=== PATIENT | male | born 1950 | race Two or more races ===

== ENCOUNTER 2024-10-15 03:01 | Emergency (ER) | payer OTHER ==
[~2024-10-15] VITALS: Ht 165.1 cm; Wt 63.5 kg
[2024-10-15] MEDS: SODIUM CHLORIDE 0.9% 1,000 ML IV ONE (03:15)
--- NOTE | 2024-10-15 03:40 | ECG ---
[facility] Test Date: 2024-10-15 Test Time: 03:19:38 Pat Name: CHALO STARK Department: Room: Gender: M Mender [employer]: RONNIE : 1950 Requested By: EMERGENCY EMERGENCY Order Number: [id number] Reading MD: Measurements Intervals [place] Rate: 99 P: 47 NM: 167 QRS: 5 QRSD: 96 T: -2 QT: 340 QTc: 437 Interpretive Statements Sinus rhythm Inferior infarct, old Consider anterior infarct Lateral leads are also involved Baseline wander in lead(s) V5 Please click the below link to view image of tracing.
[2024-10-15 03:41] LABS: Hematocrit 40.9 % (41.0-53.0); Hemoglobin 13.9 g/dL (13.5-17.5); Mean Corpuscular Hemoglobin 28.8 pg (28.0-32.0); Mean Corpuscular Volume 84.6 fL (80.0-100.0); Nucleated Red Blood Cells % 0.0 %
[2024-10-15 04:24] LABS: Alanine Aminotransferase 20 U/L (7-40); Albumin 4.4 g/dL (3.2-4.8); Alkaline Phosphatase 87 U/L (46-116); Anion Gap 9 (5-15); BUN/Creatinine Ratio 27.5 (10.0-20.0); Calcium 9.9 mg/dL (8.7-10.4); Carbon Dioxide 26 mmol/L (20-31); Magnesium 2.0 mg/dL (1.6-2.6); Potassium 4.2 mmol/L (3.5-5.1); Total Protein 8.2 g/dL (5.7-8.2)
[2024-10-15 04:25] LABS: Bilirubin, Total 0.6 mg/dL (0.2-1.0)
--- NOTE | 2024-10-15 04:36 | ED.PDOC ---
Back pain HPI HPI Comments 74-year-old male is brought in by ambulance for chief complaint of low back pain for the last five weeks, at least States on being bed-bound for the past five weeks secondary to pain. Patient reports that her pain is worsening over the past five days after being seen by chiropractor five days ago. Denies any recent fall or injuries. Denies any further acute symptoms. Past medical history: Esophageal disease, hypertension, diabetes, aspirin use Past surgical history: denies Vitals: Temperature of 98.6 F, pulse rate of 102, respiratory rate of 16, blood pressure 136/76, and pulse ox 95% on room air HPI: Poor Historian. REVIEW OF SYSTEMS: CONSTITUTIONAL: Denies acute: fever, diaphoresis, chills, HEAD: Denies acute: headache, photophobia Eyes: Denies acute: Double vision, vision loss, eye pain, eye discharge. EARS: Denies acute: tinnitus, hearing loss, ear discharge, ear pain, THROAT: Denies acute: sore throat, swelling, difficulty swallowing , pain with swallowing, change in voice. NECK: Denies acute: neck pain, neck swelling, stiff neck. HEART: Denies acute : chest pain, palpitations, LUNGS: Denies acute: SOB, wheezing, cough, hemoptysis ABDOMEN: Denies acute: abdominal pain, Nausea, Vomiting, diarrhea, melena , hematemesis, hematochezia SKIN: Denies acute: rash, redness, lesions, itchiness. EXTREMITIES: Denies acute: calf pain, numbness, tingling, weakness, denies pain in extremity. Neuro: Denies acute: focal neurological deficit, motor or sensory focal neurological deficit, tremors, seizure like activity, confusion, dizziness, change in mental status, loss of bowel or bladder function, cauda equina like symptoms. : Denies acute: dysuria, hematuria, flank pain, increase in urinary frequency. PSYCH: Denies acute: hallucination, suicidal ideation, homicidal ideation. PHYSICAL EXAM: General: -----[id number]---acute distress, awake and alert. Head: normocephalic, atraumatic. Neck: supple, trachea is midline, no swelling. Throat: Normal phonation. Eyes:, no erythema, no purulent discharge, no proptosis, no icterus. Heart: regular rate, regular rhythm, no significant murmur appreciated. Lungs: no apparent respiratory distress, Able to speak in full sentences. No wheezing, no rhonchi, no crackles. No stridors Clear to auscultation bilaterally. Abdomen: non tender to palpation, non distended, soft, no guarding, no rebound, + bowel sounds. Neuro: Awake, Alert, oriented to name, self, situation, follows commands GCS=15. Speech is normal. Skin: no petechia, no purpura, no cyanosis, non-pale, not jaundice. Lower extremities: --no - Pitting edema no deformity, no focal swelling, no calf TTP. Makes eye contact. moves all four extremities. Face: no apparent facial droop. Palpation of the area of pain. Patient points to his lumbosacral region centrally and bilaterally. No apparent swelling or palpable masses or step-off or deformity. ED COURSE: DISCLAIMER: This medical document was created using an electronic medical record system with voice recognition software and computerized dictation system. Although this document has been carefully reviewed, there might still be some phonetic and typographical errors. Occasional wrong-word or "sound-alike" substitutions may have occurred due to the inherent limitations of voice recognition software. These areas are purely typographical due to imperfections of the software programs and do not reflect any compromise in the patient's medical care. Please read the chart carefully and recognize, using context, where these substitutions have occurred. Chief Complaint: Back Pain Time Seen by MD: 04:30 Reviewed Notes: Nurses Notes, Medications, Allergies Allergies: Coded Allergies: NO KNOWN ALLERGIES (Unverified , 10/15/24) Information Source: Patient Mode of Arrival: EMS Was a procedure done? Was a procedure done?: No EKG EKG : Pulse Rate (adult): 99 [place]: Normal Cardiac Rhythm: NSR Block: None Hypertrophy: None ST: Normal Back Pain Differential Dx Differential Diagnosis: Other (DDX included but not limited to Cauda Equina syndrome, lumbar radiculopathy, arthritis, disk herniation, sciatica, muscle strain, epidural abscess, transverse myelitis. Cord compression, spinal foraminal stenosis, spinal fractures, spondylosis, central canal stenosis, trauma, muscle sprain/strain, aneurysm/dissection, kidney stones, shingles, arthritis, [place], neoplasm., retroperitoneal hematoma) X-Ray, Labs, Meds, VS Vital Signs Date Time Temp Pulse Resp B/P (MAP) Pulse Ox O2 Delivery O2 Flow Rate FiO2 10/15/24 10:16 98.4 80 20 125/60 (81) 95 98.4 10/15/24 09:22 98.1 75 22 120/62 (81) 95 98.1 10/15/24 07:52 79 18 98 Room Air* 0 21 10/15/24 07:52 97.1 79 18 134/64 (87) 98 97.1 10/15/24 04:36 99 10/15/24 03:40 98.6 102 16 136/76 95 98.6 10/15/24 03:19 99 Lab Test 10/15/24 07:50 10/15/24 06:56 10/15/24 03:17 Range/Units POC Glucose 310 H 70-106 mg/dl Urine Color Light-yellow Yellow Urine Clarity Clear Clear Urine pH 5.5 5.0-9.0 Urine Specific [place] 1.023 1.001-1.035 Urine Protein 1+ H Negative Urine Ketones Negative Negative Urine Blood Trace H Negative /uL Urine Nitrite Negative Negative Urine Bilirubin Negative Negative Urine Urobilinogen Normal Negative mg/dL Urine Leukocyte Esterase Negative Negative /uL Urine RBC None seen 0 - 3 /hpf Urine Microscopic WBC < 1 0-3 /HPF Urine Squamous Epithelial Cells None seen <5 /hpf Urine Bacteria None seen None Seen /hpf Urine Glucose 4+ H Normal mg/dL White Blood Count 11.9 H 4.4-10.8 10^3/uL Red Blood Count 4.83 4.5-5.90 10^6/uL Hemoglobin 13.9 13.5-17.5 g/dL Hematocrit 40.9 L 41.0-53.0 % Mean Corpuscular Volume 84.6 80.0-100.0 fL Mean Corpuscular Hemoglobin 28.8 28.0-32.0 pg Mean Corpuscular Hemoglobin Concent 34.1 32.0-36.0 g/dL Red Cell Distribution Width 13.6 11.8-14.3 % Platelet Count 390 140-450 10^3/uL Mean Platelet Volume 7.9 6.9-10.8 fL Neutrophils (%) (Auto) 79.5 37.0-80.0 % Lymphocytes (%) (Auto) 9.6 L 10.0-50.0 % Monocytes (%) (Auto) 10.1 0.0-12.0 % Eosinophils (%) (Auto) 0.3 0.0-7.0 % Basophils (%) (Auto) 0.5 0.0-2.0 % Neutrophils # (Auto) 9.4 H 1.6-8.6 10 ^3/uL Lymphocytes # (Auto) 1.1 0.4-5.4 10 ^3/uL Monocytes # (Auto) 1.2 0-1.3 10 ^3/uL Eosinophils # (Auto) 0 0-0.8 10 ^3/uL Basophils # (Auto) 0.1 0-0.2 10 ^3/uL Nucleated Red Blood Cells 0.0 % Sodium Level 127 L 136-145 mmol/L Potassium Level 4.2 3.5-5.1 mmol/L Chloride Level 92 L 98-107 mmol/L Carbon Dioxide Level 26 20-31 mmol/L Anion Gap 9 5-15 Blood Urea Nitrogen 38 H 9-23 mg/dL Creatinine 1.38 H 0.700-1.30 mg/dL Glomerular Filtration Rate Calc 54 >90 mL/min BUN/Creatinine Ratio 27.5 H 10.0-20.0 Serum Glucose 438 *H 74-106 mg/dL Lactic Acid Level 1.3 0.4-2.0 mmol/L Calcium Level 9.9 8.7-10.4 mg/dL Magnesium Level 2.0 1.6-2.6 mg/dL Total Bilirubin 0.6 0.2-1.0 mg/dL Aspartate Amino Transferase (AST) 18 13-40 U/L Alanine Aminotransferase (ALT) 20 7-40 U/L Alkaline Phosphatase 87 46-116 U/L Troponin I High Sensitivity 13 </=54 ng/L Total Protein 8.2 5.7-8.2 g/dL Albumin 4.4 3.2-4.8 g/dL Beta-Hydroxybutyric Acid 0.184 < 0.4 mmol/L [address] [address] Ph: [phone] DIAGNOSTIC IMAGING Diagnostic Imaging Report : [id number] Signed PATIENT: CHALO DIXON ACCT: [id number] UNIT: [id number] : 1950 LOC: ER ROOM / BED: / AGE / SEX: 74 / M ADM STATUS: REG ER SERVICE [id number] ORDERING PHYSICIAN: RONEY SALMERON DO PROCEDURE(s): ABPL - CT AB PEL WO CON-NO ORAL OR IV REASON: lumbar pain ORDER NUMBER(s): [id number], ACCESSION NUMBER(s): [id number] Exam: CT CT AB PEL WO CON-NO ORAL OR IV History: lumbar pain Comparison Study: None Technique: Multidetector spiral CT of the abdomen and pelvis was performed from lung bases to pubic symphysis. Imaging was performed without intravenous contrast. Coronal and sagittal multiplanar reformats were obtained from the axial data set by the technologist. Radiation Dose : 1. Abdomen/Pelvis: CTDIvol 5.85 mGy, DLP 302.6 mGy*cm. Findings: Evaluation of vasculature and solid organs is limited due to lack of intravenous contrast use. Lung Bases: Lung bases are clear. The heart is normal in size. Coronary artery calcifications noted. No pericardial effusion. Liver: The liver is normal in size. No focal lesions. Gallbladder and Biliary Tree: The gallbladder is unremarkable. No intrahepatic or extrahepatic biliary ductal dilatation. Spleen: Unremarkable Pancreas: The pancreas is grossly unremarkable. Adrenal Glands: Unremarkable Kidneys: Kidneys are unremarkable without calculi or hydronephrosis. GI tract: There is a hiatal hernia. There is no small bowel wall thickening or dilatation. Colonic diverticulosis without acute diverticulitis. Normal appendix. Peritoneum/mesentery/retroperitoneum. No evidence of free intraperitoneal air. No ascites. No evidence of suspicious lymphadenopathy. Abdominal Wall: Unremarkable. Vasculature: The visualized abdominal aorta is normal in size and caliber. Evaluation of abdominal and pelvic vessels is limited due to lack of intravenous contrast. Urinary Bladder: Grossly unremarkable for degree of distention. Pelvic Organs: Unremarkable Musculoskeletal: No aggressive focal bony lesions, acute fractures or dislocation. There is bilateral neural foraminal stenosis at L5-S1. Soft tissues: Bilateral fat containing inguinal hernias. IMPRESSION: 1. No acute abdominal or pelvic findings. 2. Hiatal hernia. 3. Colonic diverticulosis without acute diverticulitis. 4. Other incidental findings as above. ATED BY: ALFREDO BEY MD DICTATED DATE/TIME: 10/15/24521 SIGNED BY: ALFREDO BEY MD SIGNED DATE/TIME: 10/15/24521 CC: Time of 1ST Reevaluation: 05:00 Reevaluation 1ST: Unchanged Time of 2ND Reevaluation: 06:04 (THE CASE WAS DISCUSSED WITH THE [facility] ADMITTING TEAM (HPI, PHYSICAL EXAM, LABS AND DIAGNOSTIC TESTS THAT WERE AVAIL ABLE AT THE TIME OF DISPOSITION, ED COURSE, TREATMENT PLAN) ON THE PHONE. THEY AGREED TO TRANSFER THE PATIENT TO THEIR SERVICE BY [facility] FOR FURTHER EVALUATION AND TREATMENT. DRNabila ---RONALD. AUTHORIZATION NUMBER IS--[id number]) Reevaluation 2ND: Unchanged Patient Education/Counseling: Diagnosis, Treatment Family Education/Counseling: No Family Present Comments PATIENT WILL BE TRANSFERRED TO [facility] FOR FURTHER EVALUATION AND TREATMENT OF HIS PRESENTATION. MDM: patient presented with the above HPI.--low back pain----workup was initiated. patient was found with the above mentioned diagnosis. the following medications were ordered: please refer to order lists of meds and tests obtained by myself Dr. Salmeron. Patient ED course and VS have been stabilized. Patient has been reassessed in the ED and remained in a stable condition. Pertinent incidental findings were discussed with the patient and/or family. Patient/family voices understanding and is agreeable with plan. Patient has been observed in the ED adequate length of time to insure improvement/stability. Escalation of care considered: Consideration of escalation to observation or admission Patient we will be transferred per insurance requirement to [place] for further evaluation and treatment of their presentation. And for pain control. . All the reports of any imaging studies that were ordered by myself were reviewed by myself. SEPSIS Sepsis Screen Date sepsis recognized/suspect: Oct 15, 2024 Time Sepsis recognized/suspect: 034 Recent Procedure: No On Antibiotic Therapy: No Respiratory Rate >20: No Heart Rate >90: No Temp<36 C (96.8 F) or >38.3 C: No SBP <90 or MAP <65 mmHG: No New Acute Mental Status Change: No Is the patient on CPAP, BIPAP,: No Physician Orders Apartment Assistant Manager (10/15/24 ) Ct Ab Pel Wo Con-No Oral Or Iv (10/15/24 04:31) Imaging Transfer Request (10/15/24 06:53) Imaging Transfer Request (10/15/24 09:49) Vital Signs Date Time Temp Pulse Resp B/P (MAP) Pulse Ox O2 Delivery O2 Flow Rate FiO2 10/15/24 10:16 98.4 80 20 125/60 (81) 95 98.4 10/15/24 09:22 98.1 75 22 120/62 (81) 95 98.1 10/15/24 07:52 79 18 98 Room Air* 0 21 10/15/24 07:52 97.1 79 18 134/64 (87) 98 97.1 10/15/24 04:36 99 10/15/24 03:40 98.6 102 16 136/76 95 98.6 10/15/24 03:19 99 Laboratory Tests Test 10/15/24 03:17 Lactic Acid Level 1.3 mmol/L (0.4-2.0) White Blood Count 11.9 10^3/uL (4.4-10.8) H Departure 1 Departure Time of Disposition: 04:40 Impression: Primary Impression: Low back pain Additional Impression: Hyperglycemia Disposition: ADMITTED INPATIENT Admit to: Tele Condition: Guarded Discharged With: Self Critical Care Note Critical Care Time?: No I personally scribed for RONEY SALMERON DO ([email or web address]) on 10/15/24 at 04:36. Lauren ctronically submitted by Wilner Velazquez ([email or web address]). RONEY SALMERON DO Oct 15, 2024 04:36
[2024-10-15 04:41] LABS: Blood Urea Nitrogen 38 mg/dL (9-23); Chloride 92 mmol/L (98-107); Sodium 127 mmol/L (136-145)
[2024-10-15 04:43] LABS: Glucose 438 mg/dL (74-106)
[2024-10-15] MEDS: InsuLIN REG 1unit/0.01ml Soln (100units/ml) IV ONE (04:44)
[2024-10-15] MEDS: HYDROcodone-ACET 5/325MG TAB PO ONE (04:47)
--- NOTE | 2024-10-15 05:24 | DVH ---
Exam: CT CT AB PEL WO CON-NO ORAL OR IV History: lumbar pain Comparison Study: None Technique: Multidetector spiral CT of the abdomen and pelvis was performed from lung bases to pubic s ymphysis. Imaging was performed without intravenous contrast. Coronal and sagittal multiplanar reform ats were obtained from the axial data set by the technologist. Radiation Dose : 1. Abdomen/Pelvis: CTDIvol 5.85 mGy, DLP 302.6 mGy*cm. Findings: Evaluation of vasculature and solid organs is limited due to lack of intravenous contrast use. Lung Bases: Lung bases are clear. The heart is normal in size. Coronary artery calcifications noted. No pericardial effusion. Liver: The liver is normal in size. No focal lesions. Gallbladder and Biliary Tree: The gallbladder is unremarkable. No intrahepatic or extrahepatic bilia ry ductal dilatation. Spleen: Unremarkable Pancreas: The pancreas is grossly unremarkable. Adrenal Glands: Unremarkable Kidneys: Kidneys are unremarkable without calculi or hydronephrosis. GI tract: There is a hiatal hernia. There is no small bowel wall thickening or dilatation. Colonic di verticulosis without acute diverticulitis. Normal appendix. Peritoneum/mesentery/retroperitoneum. No evidence of free intraperitoneal air. No ascites. No evidenc e of suspicious lymphadenopathy. Abdominal Wall: Unremarkable. Vasculature: The visualized abdominal aorta is normal in size and caliber. Evaluation of abdominal a nd pelvic vessels is limited due to lack of intravenous contrast. Urinary Bladder: Grossly unremarkable for degree of distention. Pelvic Organs: Unremarkable Musculoskeletal: No aggressive focal bony lesions, acute fractures or dislocation. There is bilateral neural foraminal stenosis at L5-S1. Soft tissues: Bilateral fat containing inguinal hernias. IMPRESSION: 1. No acute abdominal or pelvic findings. 2. Hiatal hernia. 3. Colonic diverticulosis without acute diverticulitis. 4. Other incidental findings as above.
[2024-10-15] MEDS: KETOROLAC TROMETH 30 MG/ML 1ML VIAL IV ONE (06:35)
[2024-10-15 07:48] LABS: Urine Protein, UAD 1+ (Negative)
[2024-10-15 07:52] VITALS: PULSE 79; RESP 18; O2SAT 98
[2024-10-15 10:16] VITALS: BP 125/60; PULSE 80; RESP 20; TEMP 98.4; O2SAT 95
== END 2024-10-15 10:24 | disposition short-term general hospital (02) ==
LOC: EDBD 03:01 → ER 03:01
DX: E11.65 Type 2 diabetes mellitus with hyperglycemia (principal); I10 Essential (primary) hypertension; Z74.01 Bed confinement status
CPT/HCPCS: 36415; 74176; 80053; 81001; 82010; 82947; 83605; 83735; 84484; 85025; 93005; 96361; 96374; 96375; 99285; J1815; J1885; J7030; 82962

== ENCOUNTER 2024-10-28 10:50 | Emergency (ER) | payer OTHER ==
[~2024-10-28] VITALS: Ht 172.7 cm; Wt 71.8 kg
--- NOTE | 2024-10-28 11:13 | ED.PDOC ---
History of Present Illness HPI Comments 74 year old male PMHx DM insulin dependent, presents to the ED via EMS with a chief complaint of chronic back pain. Per EMS, patient has chronic back pain, follows with pain management. For the past few weeks pain has worsen, EMS was told by for the past 2 days urine has been dark with foul odor. He was seen at [facility] on 10/17/24 for back pain, was discharged. Patient is a poor historian. Denies fever, chills, nausea, vomiting, diarrhea, headache, recent fall, injury, trauma, chest pain. No other symptoms or modifying factors present at this time. Chief Complaint: Back Pain Time Seen by MD: 11:05 Reviewed Notes: Medications, Allergies Allergies: Coded Allergies: Penicillins (Verified Allergy, Unknown, 10/28/24) Information Source: Patient, Emergency Med Personnel Mode of Arrival: EMS Severity: Moderate Timing: Days Duration: Since onset Prehospital treatment: None Past Medical History PAST MEDICAL HISTORY: DM Past Medical History (Other): diverticulitis Surgical History: Denies all surgeries Family History Family History: Reviewed,noncontributory to illness, No family hx of Cancer, No family hx of DM, No family hx of Heart brock, No family hx of HTN, No family hx ofKidney brock, No family hx of Liver brock, No family hx of Lung brock, No family hx of Stroke Social History Smoker: Non-Smoker Alcohol: Denies ETOH Use Drugs: Denies Drug Use Lives In: Home Constitutional: denies: chills, diaphoresis, fatigue, fever, malaise, sweats, weakness, others EENTM: denies: blurred vision, double vision, ear bleeding, ear discharge, ear drainage, ear pain, ear ringing, eye pain, eye redness, hearing loss, mouth pain, mouth swelling, nasal discharge, nose bleeding, nose congestion, nose pain, photophobia, tearing, throat pain, throat swelling, voice changes, others Respiratory: denies: cough, hemoptysis, orthopnea, SOB at rest, shortness of breath, SOB with excertion, stridor, wheezing, others Cardiovascular: denies: chest pain, dizzy spells, diaphoresis, Dyspnea on exertion, edema, irregular heart beat, left arm pain, lightheadedness, palpitations, PND, syncope, others Gastrointestinal: denies: abdomen distended, abdominal pain, blood streaked bowels, constipated, diarrhea, dysphagia, difficulty swallowing, hematemesis, melena, nausea, poor appetite, poor fluid intake, rectal bleeding, rectal pain, vomiting, others Genitourinary: denies: burning, dysuria, flank pain, frequency, hematuria, incontinence, penile discharge, penile sore, pain, testicle pain, testicle swelling, urgency, others Neurological: denies: dizziness, fainting, headache, left sided numbness, left sided weakness, numbness, paresthesia, pre-existing deficit, right sided numbness, right sided weakness, seizure, speech problems, tingling, tremors, weakness, others Musculoskeletal: reports: back pain; denies: gout, joint pain, joint swelling, muscle pain, muscle stiffness, neck pain, others Integumetry: denies: bruises, change in color, change in hair/nails, dryness, laceration, lesions, lumps, rash, wounds, others Allergic/Immunocompromised: denies: Difficulty Healing, Frequent Infections, Hives, Itching, others Hematologic/Lymphatic: denies: anemia, blood clots, easy bleeding, easy bruising, swollen glands, others Endocrine: denies: excessive hunger, excessive sweating, excessive thirst, excessive urination, flushing, intolerance to cold, intolerance to heat, unexplained weight gain, unexplained weight loss, others Psychiatric: denies: anxiety, bipolar disorder, depression, hopeless, panic disorder, schizophrenia, sleepless, suicidal, others All Other Systems: Reviewed and Negative Physical Exam General Appearance: Normal HEENT: Normal ENT Inspection, Pharynx Normal, TMs Normal Neck: Full Range of Motion, Non-Tender, Normal, Normal Inspection Respiratory: Chest Non-Tender, Lungs Clear, No Accessory Muscle Use, No Respiratory Distress, Normal Breath Sounds Cardiovascular: No Edema, No JVD, No Murmur, No Gallop, Normal Peripheral Pulses, Regular Rate/Rhythm Breast Exam: Deferred Gastrointestinal: No Organomegaly, Non Tender, No Pulsatile Mass, Normal Bowel Sounds, Soft Genitalia: Deferred Pelvic: Deferred Rectal: Deferred Extremities: No calf tenderness, Normal capillary refill, Normal inspection, Normal range of motion, Non-tender, No pedal edema Musculoskeletal : Apperance: Normal Neurologic: Alert, auto clutch specialist II-XII nml as Tested, No Motor Deficits, Normal Affect, Normal Mood, No Sensory Deficits Cerebellar Function: Normal Reflexes: Normal Skin: Dry, Normal Color, Warm Lymphatic: No Adenopathy Was a procedure done? Was a procedure done?: No Differential Dx Considerations may include: Spine fracture, UTI X-Ray, Labs, Meds, VS Vital Signs Date Time Temp Pulse Resp B/P (MAP) Pulse Ox O2 Delivery O2 Flow Rate FiO2 10/28/24 14:42 98.4 107 16 121/64 (83) 95 98.4 10/28/24 14:41 107 16 121/64 10/28/24 10:52 97.7 99 25 136/172 95 97.7 Lab Test 10/28/24 11:55 Range/Units White Blood Count 12.1 H 4.4-10.8 10^3/uL Red Blood Count 4.95 4.5-5.90 10^6/uL Hemoglobin 13.8 13.5-17.5 g/dL Hematocrit 41.0 41.0-53.0 % Mean Corpuscular Volume 82.9 80.0-100.0 fL Mean Corpuscular Hemoglobin 27.9 L 28.0-32.0 pg Mean Corpuscular Hemoglobin Concent 33.7 32.0-36.0 g/dL Red Cell Distribution Width 14.0 11.8-14.3 % Platelet Count 570 H 140-450 10^3/uL Mean Platelet Volume 7.5 6.9-10.8 fL Neutrophils (%) (Auto) 81.0 H 37.0-80.0 % Lymphocytes (%) (Auto) 8.9 L 10.0-50.0 % Monocytes (%) (Auto) 8.0 0.0-12.0 % Eosinophils (%) (Auto) 1.7 0.0-7.0 % Basophils (%) (Auto) 0.4 0.0-2.0 % Neutrophils # (Auto) 9.8 H 1.6-8.6 10 ^3/uL Lymphocytes # (Auto) 1.1 0.4-5.4 10 ^3/uL Monocytes # (Auto) 1.0 0-1.3 10 ^3/uL Eosinophils # (Auto) 0.2 0-0.8 10 ^3/uL Basophils # (Auto) 0.1 0-0.2 10 ^3/uL Nucleated Red Blood Cells 0.1 % Sodium Level 130 L 136-145 mmol/L Potassium Level 5.0 3.5-5.1 mmol/L Chloride Level 96 L 98-107 mmol/L Carbon Dioxide Level 20 20-31 mmol/L Anion Gap 14 5-15 Blood Urea Nitrogen 22 9-23 mg/dL Creatinine 0.71 0.700-1.30 mg/dL Glomerular Filtration Rate Calc 97 >90 mL/min BUN/Creatinine Ratio 31.0 H 10.0-20.0 Serum Glucose 163 H 74-106 mg/dL Calcium Level 8.3 L 8.7-10.4 mg/dL Current Medications Medications (Trade) Dose Ordered Sig/Cira Route Start Time Stop Time Status Last Admin Morphine Sulfate 4 mg ONCE ONCE IV 10/28/24 13:15 10/28/24 13:16 DC 10/28/24 14:41 Ondansetron HCl (Zofran) 4 mg ONCE ONCE IV 10/28/24 13:15 10/28/24 13:16 DC 10/28/24 14:42 Time of 1ST Reevaluation: 11:35 Reevaluation 1ST: Unchanged Patient Education/Counseling: Diagnosis, Treatment, Prognosis Family Education/Counseling: No Family Present SEPSIS Sepsis Screen Date sepsis recognized/suspect: Oct 28, 2024 Time Sepsis recognized/suspect: 1051 Recent Procedure: No On Antibiotic Therapy: No Respiratory Rate >20: No Heart Rate >90: Yes Temp<36 C (96.8 F) or >38.3 C: No SBP <90 or MAP <65 mmHG: No New Acute Mental Status Change: No Is the patient on CPAP, BIPAP,: No Physician Orders Urinalysis (10/28/24 11:08) Lumbar Spine 3 View (10/28/24 15:45) Vital Signs Date Time Temp Pulse Resp B/P (MAP) Pulse Ox O2 Delivery O2 Flow Rate FiO2 10/28/24 14:42 98.4 107 16 121/64 (83) 95 98.4 10/28/24 14:41 107 16 121/64 10/28/24 10:52 97.7 99 25 136/172 95 97.7 Laboratory Tests Test 10/28/24 11:55 White Blood Count 12.1 10^3/uL (4.4-10.8) H Medications Medications Dose Ordered Sig/Cira Route Start Time Stop Time Status Last Admin Dose Admin Morphine Sulfate 4 mg ONCE ONCE IV 10/28/24 13:15 10/28/24 13:16 DC 10/28/24 14:41 Ondansetron HCl 4 mg ONCE ONCE IV 10/28/24 13:15 10/28/24 13:16 DC 10/28/24 14:42 Departure 1 Departure Time of Disposition: 17:40 ([facility] Case: [id number] with intractable back pain found to have a T12 fracture with a worsening loss of height. Patient accepted as a transfer to [facility]) Impression: Primary Impression: T12 compression fracture Qualified Codes: S22.080A - Wedge compression fracture of T11-T12 vertebra, initial encounter for closed fracture Additional Impression: Intractable back pain Disposition: 02 SHORT TERM HOSPITAL Condition: Serious Critical Care Note Critical Care Time?: No Stability Stability form required: No Heart Score Heart Score: Heart Score Response (Comments) Value History N/A 0 EKG N/A 0 Age N/A 0 Risk Factors N/A 0 Troponin N/A 0 Total 0 I personally scribed for DELROY ANGELES MD ([email or web address]) on 10/28/24 at 11:13. Electronically submitted by Lyly Isidro ([email or web address]). DELROY ANGELES MD Oct 28, 2024 11:13
[2024-10-28] MEDS: HYDROcodone-ACET 5/325MG TAB PO ONE (11:15)
[2024-10-28 12:32] LABS: Hematocrit 41.0 % (41.0-53.0); Hemoglobin 13.8 g/dL (13.5-17.5); Mean Corpuscular Hemoglobin 27.9 pg (28.0-32.0); Mean Corpuscular Volume 82.9 fL (80.0-100.0); Nucleated Red Blood Cells % 0.1 %
[2024-10-28 12:42] LABS: Potassium 5.0 mmol/L (3.5-5.1)
[2024-10-28 12:43] LABS: Anion Gap 14 (5-15)
[2024-10-28 12:46] LABS: Calcium 8.3 mg/dL (8.7-10.4); Carbon Dioxide 20 mmol/L (20-31); Chloride 96 mmol/L (98-107); Sodium 130 mmol/L (136-145)
[2024-10-28 12:48] LABS: BUN/Creatinine Ratio 31.0 (10.0-20.0); Blood Urea Nitrogen 22 mg/dL (9-23); Glucose 163 mg/dL (74-106)
[2024-10-28] MEDS: MORPHINE SULFATE 4 MG/ML SYR/VIAL IV ONE ×2 (14:41→17:49)
[2024-10-28] MEDS: ONDANSETRON HCL 4 MG/2 ML VIAL IV ONE ×3 (14:42→22:48)
--- NOTE | 2024-10-28 16:34 | DVH ---
Indication: lower back pain Technique: XY LUMBAR SPINE 3 VIEWXY Comparison: 10/15/2024 FINDINGS/IMPRESSION: Subacute T12 compression fracture with 30% loss height increased from the previous examination. Recom mend neurosurgical consultation for further evaluation. Atherosclerotic calcification disease. Lumbar vertebral body heights are maintained. Moderate multilevel disc space narrowing with endplate sclerosis, anterior osteophytosis. Moderate to severe neural foraminal stenosis L4-5, L5-S1.
[2024-10-28 19:30] LABS: Urine Protein, UAD 2+ (Negative); Urine WBC Clumps PRESENT /hpf (None Seen)
[2024-10-28 19:40] VITALS: PULSE 104; RESP 24; O2SAT 95
[2024-10-28] MEDS: HYDROmorphone HCL 2 MG/ML VL/or syr IV ONE (22:48)
[2024-10-29 02:05] VITALS: BP 133/75; PULSE 125; RESP 29; TEMP 98.9; O2SAT 98
[2024-10-29] MEDS: SODIUM CHLORIDE 0.9% 1,000 ML IV ONE (02:11)
== END 2024-10-29 02:47 | disposition short-term general hospital (02) ==
LOC: EDBD 10:50 → ER 10:50
DX: S22.080A Wedge compression fracture of T11-T12 vertebra, initial encounter for closed fracture (principal); M54.50 Low back pain, unspecified; G89.29 Other chronic pain; E11.9 Type 2 diabetes mellitus without complications; Z88.0 Allergy status to penicillin; Z79.899 Other long term (current) drug therapy
CPT/HCPCS: 36415; 72100; 80048; 81001; 83605; 85025; 87040; 87077; 87186; 96361; 96365; 96375; 96376; 99285; J0696; J1171; J2270; J2405; J7030

== ENCOUNTER 2024-11-12 08:28 | Inpatient (IN) | payer OTHER ==
[~2024-11-12] VITALS: Ht 170.2 cm; Wt 71.9 kg
[2024-11-12 09:27] LABS: Hematocrit 31.5 % (41.0-53.0); Hemoglobin 10.6 g/dL (13.5-17.5); Mean Corpuscular Hemoglobin 28.0 pg (28.0-32.0); Mean Corpuscular Volume 82.8 fL (80.0-100.0); Nucleated Red Blood Cells % 0.1 %
--- NOTE | 2024-11-12 09:30 | DVH ---
CHEST RADIOGRAPH Indication: cp Technique: Single frontal view of the chest was obtained COMPARISON: None FINDINGS: Lines and Tubes: None Lungs: Increased interstital prominence. This may represent pulmonary vascular congestion and/or jamie l pneumonia. Clinical correlation advised. Pleura: No effusion. No pneumothorax. Cardiomediastinal contours: Cardiomegaly Bones: Unremarkable IMPRESSION: Increased interstital prominence. This may represent pulmonary vascular congestion and/or viral pneum onia. Clinical correlation advised.
--- NOTE | 2024-11-12 09:37 | ECG ---
[facility] Test Date: 2024-11-12 Test Time: 09:36:43 Pat Name: CHALO DIXON Department: ER Room: 0262 Gender: M Managing Consultant: GP : 1950 Requested By: DELROY ANGELES Order Number: [id number] Reading MD: Mikhail Mcclendon Measurements Intervals [place] Rate: 104 P: 40 MO: 168 QRS: 21 QRSD: 85 T: 0 QT: 422 QTc: 556 Interpretive Statements Sinus tachycardia Multiple ventricular premature complexes Nonspecific T abnormalities, lateral leads Prolonged QT interval Electronically Signed On 11-16-2024 20:28:28 PDT by Mikhail Mcclendon Please click the below link to view image of tracing.
[2024-11-12 09:39] LABS: Anion Gap 13 (5-15); Carbon Dioxide 25 mmol/L (20-31); Chloride 101 mmol/L (98-107); Potassium 3.6 mmol/L (3.5-5.1); Sodium 139 mmol/L (136-145)
[2024-11-12 09:40] LABS: Calcium 8.3 mg/dL (8.7-10.4)
[2024-11-12 09:45] LABS: BUN/Creatinine Ratio 18.4 (10.0-20.0); Blood Urea Nitrogen 21 mg/dL (9-23)
--- NOTE | 2024-11-12 09:46 | ED.PDOC ---
HPI Comments 74 year old male presents to the ED via EMS with a chief compliant of chest pain onset today (11/12/24). Per EMS, patient is from [facility], 911 was initially called due to patient experiencing a fall. Upon EMS arrival, patient stated he has been experiencing back pain for the past month, chest pressure since this morning. Patient is a poor historian. PMHx DM, chronic back pain. Denies LOC, nausea, vomiting, diarrhea, abdominal pain, fevers, chilols, shortness of breath. No other symptoms or modifying factors present at this time. Chief Complaint: Chest Pain Time Seen by MD: 09:30 Reviewed Notes: Medications, Allergies Allergies: Coded Allergies: Aspirin (Verified Allergy, Unknown, 11/12/24) Doxycycline (Verified Allergy, Unknown, 11/12/24) Penicillins (Verified Allergy, Unknown, 10/28/24) Information Source: Patient, Emergency Med Personnel Mode of Arrival: EMS Severity: Moderate Timing: Hours Duration: Since onset Prehospital treatment: None Location: Chest (L) Radiation: No Radiation Quality: Pressure Onset: At Rest Cardiac Risk Factors: Diabetes Modifying Factors: Nothing Past Medical History PAST MEDICAL HISTORY: DM Surgical History: Denies all surgeries Family History Family History: Reviewed,noncontributory to illness, No family hx of Cancer, No family hx of DM, No family hx of Heart brock, No family hx of HTN, No family hx ofKidney brock, No family hx of Liver brock, No family hx of Lung brock, No family hx of Stroke Social History Smoker: Non-Smoker Alcohol: Denies ETOH Use Drugs: Denies Drug Use Lives In: Senior Care Constitutional: denies: chills, diaphoresis, fatigue, fever, malaise, sweats, weakness, others EENTM: denies: blurred vision, double vision, ear bleeding, ear discharge, ear drainage, ear pain, ear ringing, eye pain, eye redness, hearing loss, mouth pain, mouth swelling, nasal discharge, nose bleeding, nose congestion, nose pain, photophobia, tearing, throat pain, throat swelling, voice changes, others Respiratory: denies: cough, hemoptysis, orthopnea, SOB at rest, shortness of breath, SOB with excertion, stridor, wheezing, others Cardiovascular: reports: chest pain; denies: dizzy spells, diaphoresis, Dyspnea on exertion, edema, irregular heart beat, left arm pain, lightheadedness, palpitations, PND, syncope, others Gastrointestinal: denies: abdomen distended, abdominal pain, blood streaked bowels, constipated, diarrhea, dysphagia, difficulty swallowing, hematemesis, melena, nausea, poor appetite, poor fluid intake, rectal bleeding, rectal pain, vomiting, others Genitourinary: denies: burning, dysuria, flank pain, frequency, hematuria, incontinence, penile discharge, penile sore, pain, testicle pain, testicle swelling, urgency, others Neurological: denies: dizziness, fainting, headache, left sided numbness, left sided weakness, numbness, paresthesia, pre-existing deficit, right sided numbness, right sided weakness, seizure, speech problems, tingling, tremors, weakness, others Musculoskeletal: reports: back pain; denies: gout, joint pain, joint swelling, muscle pain, muscle stiffness, neck pain, others Integumetry: denies: bruises, change in color, change in hair/nails, dryness, laceration, lesions, lumps, rash, wounds, others Allergic/Immunocompromised: denies: Difficulty Healing, Frequent Infections, Hives, Itching, others Hematologic/Lymphatic: denies: anemia, blood clots, easy bleeding, easy bruising, swollen glands, others Endocrine: denies: excessive hunger, excessive sweating, excessive thirst, excessive urination, flushing, intolerance to cold, intolerance to heat, unexplained weight gain, unexplained weight loss, others Psychiatric: denies: anxiety, bipolar disorder, depression, hopeless, panic disorder, schizophrenia, sleepless, suicidal, others All Other Systems: Reviewed and Negative Physical Exam General Appearance: Other (chronic ill appearing, appears uncomfortable) HEENT: Normal ENT Inspection, Pharynx Normal, TMs Normal Neck: Full Range of Motion, Non-Tender, Normal, Normal Inspection Respiratory: Chest Non-Tender, Lungs Clear, No Accessory Muscle Use, No Respiratory Distress, Normal Breath Sounds Cardiovascular: No Edema, No JVD, No Murmur, No Gallop, Normal Peripheral Pulses, Regular Rate/Rhythm Breast Exam: Deferred Gastrointestinal: No Organomegaly, Non Tender, No Pulsatile Mass, Normal Bowel Sounds, Soft Genitalia: Deferred Pelvic: Deferred Rectal: Deferred Extremities: No calf tenderness, Normal capillary refill, Normal inspection, Normal range of motion, Non-tender, No pedal edema Musculoskeletal : Apperance: Normal 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 Was a procedure done?: No CP Differential Dx Differential Diagnosis: MAT, [place] Differential Diagnosis: HTN Essential, HTN Accelerated, Medical NonCompliance Differential Diagnosis: Gastritis, Myocardial Infarction, Pericarditis X-Ray, Labs, Meds, VS Vital Signs Date Time Temp Pulse Resp B/P (MAP) Pulse Ox O2 Delivery O2 Flow Rate FiO2 11/12/24 09:36 104 11/12/24 08:52 97.9 98 21 175/80 (111) 98 97.9 11/12/24 08:42 98.8 103 18 122/82 95 98.8 11/12/24 08:33 96 Lab Test 11/12/24 09:08 Range/Units White Blood Count 9.8 4.4-10.8 10^3/uL Red Blood Count 3.80 L 4.5-5.90 10^6/uL Hemoglobin 10.6 L 13.5-17.5 g/dL Hematocrit 31.5 L 41.0-53.0 % Mean Corpuscular Volume 82.8 80.0-100.0 fL Mean Corpuscular Hemoglobin 28.0 28.0-32.0 pg Mean Corpuscular Hemoglobin Concent 33.8 32.0-36.0 g/dL Red Cell Distribution Width 14.4 H 11.8-14.3 % Platelet Count 397 140-450 10^3/uL Mean Platelet Volume 7.3 6.9-10.8 fL Neutrophils (%) (Auto) 80.0 37.0-80.0 % Lymphocytes (%) (Auto) 7.7 L 10.0-50.0 % Monocytes (%) (Auto) 10.1 0.0-12.0 % Eosinophils (%) (Auto) 1.5 0.0-7.0 % Basophils (%) (Auto) 0.7 0.0-2.0 % Neutrophils # (Auto) 7.8 1.6-8.6 10 ^3/uL Lymphocytes # (Auto) 0.8 0.4-5.4 10 ^3/uL Monocytes # (Auto) 1.0 0-1.3 10 ^3/uL Eosinophils # (Auto) 0.1 0-0.8 10 ^3/uL Basophils # (Auto) 0.1 0-0.2 10 ^3/uL Nucleated Red Blood Cells 0.1 % Sodium Level 139 136-145 mmol/L Potassium Level 3.6 3.5-5.1 mmol/L Chloride Level 101 98-107 mmol/L Carbon Dioxide Level 25 20-31 mmol/L Anion Gap 13 5-15 Blood Urea Nitrogen 21 9-23 mg/dL Creatinine 1.14 0.700-1.30 mg/dL Glomerular Filtration Rate Calc 68 >90 mL/min BUN/Creatinine Ratio 18.4 10.0-20.0 Serum Glucose 178 H 74-106 mg/dL Calcium Level 8.3 L 8.7-10.4 mg/dL Troponin I High Sensitivity 58 *H </=54 ng/L [place] [id number] Ph: [phone] DIAGNOSTIC IMAGING Diagnostic Imaging Report : [id number] Signed PATIENT: CHALO DIXON ACCT: [id number] UNIT: [id number] : 1950 LOC: ER ROOM / BED: / AGE / SEX: 74 / M ADM STATUS: REG ER SERVICE 7 ORDERING PHYSICIAN: DELROY BRO MD PROCEDURE(s): CXRP - CHEST PORTABLE REASON: cp ORDER NUMBER(s): [id number], ACCESSION NUMBER(s): [id number] CHEST RADIOGRAPH Indication: cp Technique: Single frontal view of the chest was obtained COMPARISON: None FINDINGS: Lines and Tubes: None Lungs: Increased interstital prominence. This may represent pulmonary vascular congestion and/or viral pneumonia. Clinical correlation advised. Pleura: No effusion. No pneumothorax. Cardiomediastinal contours: Cardiomegaly Bones: Unremarkable IMPRESSION: Increased interstital prominence. This may represent pulmonary vascular congestion and/or viral pneumonia. Clinical correlation advised. ATED BY: RONI ALANIZ MD DICTATED DATE/TIME: 11/12/24927 SIGNED BY: RONI ALANIZ MD SIGNED DATE/TIME: 11/12/24927 CC: Time of 1ST Reevaluation: 10:00 Reevaluation 1ST: Unchanged Patient Education/Counseling: Diagnosis, Treatment, Prognosis Family Education/Counseling: No Family Present SEPSIS Sepsis Screen Date sepsis recognized/suspect: Nov 12, 2024 Time Sepsis recognized/suspect: 0848 Recent Procedure: No On Antibiotic Therapy: No Respiratory Rate >20: No Heart Rate >90: Yes Temp<36 C (96.8 F) or >38.3 C: No SBP <90 or MAP <65 mmHG: No New Acute Mental Status Change: No Is the patient on CPAP, BIPAP,: No Physician Orders Chest Portable (11/12/24 08:58) Troponin-I Hs (11/12/24 11:58) Morphine Sulfate Injection (11/12/24 11:00) Ondansetron Hcl (Zofran) (11/12/24 11:00) Vital Signs Date Time Temp Pulse Resp B/P (MAP) Pulse Ox O2 Delivery O2 Flow Rate FiO2 11/12/24 09:36 104 11/12/24 08:52 97.9 98 21 175/80 (111) 98 97.9 11/12/24 08:42 98.8 103 18 122/82 95 98.8 11/12/24 08:33 96 Laboratory Tests Test 11/12/24 09:08 White Blood Count 9.8 10^3/uL (4.4-10.8) Departure 1 Departure Time of Disposition: 10:59 (Patient presented with chest pain that was concerning for possible STEMI, ACS, PE, Pneumonia, Muscle Strain, COPD, Dissection. Data: 1. I ordered and reviewed the result of at least 3 labs including a CBC, BMP, and Troponin. 2. I independently interpreted the following tests: EKG which shows sinus arrhythmia and Chest X-ray which shows pulmonary vascular congestion.Risk:This patient has a high risk of morbidity due to further diagnostic testing or treatment and may suffer from an acute cardiac or respiratory disorder. Workup reveals concern for ACS and patient should be admitted for further workup and possible expert consultation. ) Impression: Primary Impression: Acute chest pain Additional Impression: Elevated troponin Disposition: ADMITTED INPATIENT Admit to: [facility] Condition: Guarded Critical Care Note Critical Care Time?: Yes Critical care comment: Acute chest pain Authorized and Performed by: Delroy Bro MD Total critical care time: Approximately 38 minutes Due to a high probability of clinically significant, life threatening deterioration, the patient required my highest level of preparedness to intervene emergently and I personally spent this critical care time directly and personally managing the patient. This critical care time included obtaining a history; examining the patient; pulse oximetry; ordering and review of studies; arranging urgent treatment with development of a management plan; evaluation of patient's response to treatment; frequent reassessment; and, discussions with other providers. This critical care time was performed to assess and manage the high probability of imminent, life-threatening deterioration that could result in multi-organ failure. It was exclusive of separately billable procedures and treating other patients and teaching time. Please see my other sections and the rest of the note for further information on patient assessment and treatment. Stability Stability form required: No Heart Score Heart Score: Heart Score Response (Comments) Value History Moderate Suspicious [address]-Deviation 2 Age >65 2 Risk Factors >3 or Hx ASHD 2 Troponin 1-2 x's Normal limit 1 Total 8 I personally scribed for DELROY BRO MD ([email or web address]) on 11/12/24 at 09:46. Electronically submitted by Lyly Isidro ([email or web address]). I personally scribed for DELROY BRO MD ([email or web address]) on 11/12/24 at 10:07. E lectronically submitted by Lyly Isidro ([email or web address]). DELROY BRO MD Nov 12, 2024 09:46
[2024-11-12 09:47] LABS: Glucose 178 mg/dL (74-106)
[2024-11-12 10:56] VITALS: PULSE 98; RESP 20; O2SAT 98
[2024-11-12] MEDS: ONDANSETRON HCL 4 MG/2 ML VIAL IV ONE (11:28)
[2024-11-12] MEDS: MORPHINE SULFATE 4 MG/ML SYR/VIAL IV ONE (11:29)
[2024-11-12] MEDS ORDERED: DEXTROSE (50%) 50ML SYRG IV PRN (13:00)
[2024-11-12] MEDS ORDERED: ACETAMINOPHEN 325 MG TAB PO PRN (13:00)
[2024-11-12] MEDS ORDERED: NITROGLYCERIN 0.4 MG SL TAB SL PRN (13:00)
[2024-11-12] MEDS ORDERED: DOCUSATE SOD 100 MG CAP PO PRN (13:00)
[2024-11-12] MEDS ORDERED: ONDANSETRON HCL 4 MG/2 ML VIAL IV PRN (13:00)
[2024-11-12] MEDS ORDERED: HYDROcodone-ACET 5/325MG TAB PO PRN (13:00)
[2024-11-12] MEDS ORDERED: CEFA2INJ IV (13:10)
[2024-11-12] MEDS ORDERED: CARV6.2551 PO (13:10)
[2024-11-12] MEDS ORDERED: ENOX80IN8 SC (13:10)
[2024-11-12] MEDS ORDERED: BISA10SU45 RE (13:10)
[2024-11-12] MEDS ORDERED: HYDR2TAB58 PO ×2 (13:10)
[2024-11-12] MEDS ORDERED: PANT40T PO (13:10)
[2024-11-12] MEDS ORDERED: ATOR40TA52 PO (13:10)
[2024-11-12] MEDS ORDERED: TRAZ-227 PO (13:10)
[2024-11-12] MEDS ORDERED: LIDO5DIS21 TOP (13:10)
[2024-11-12] MEDS ORDERED: INSU75IN2 SC (13:10)
[2024-11-12] MEDS ORDERED: SENN-105 PO (13:10)
[2024-11-12] MEDS ORDERED: DULO1CAP5 PO (13:10)
[2024-11-12] MEDS ORDERED: EMPA1TAB3 PO (13:10)
[2024-11-12] MEDS ORDERED: BISACODYL 10 MG RECT SUPP PR PRN (13:15)
--- NOTE | 2024-11-12 13:33 | DVHHP2 ---
History of Present Illness Reason for Visit: back pain, chest pain, fall History of Present Illness Kevin Zapata is a 74-year-old male with past medial history of diabetes, hypertension, chronic pain, and dementia, who was brought to the hospital by EMS for back and chest pain. Patient has a history of chronic back pain and is managed by pain management. He was brought to the hospital today due to worsening pain, weakness, and a fall. Patient is A&O x 1 on my assessment and a poor historian. Cardiovascular: HTN Musculoskeletal: Chronic low back pain Endocrine: Diabetes Smoke: No ALCOHOL: none Drugs: None Lives: Long Term Domestic Violence: Neg Review of Systems Constitutional: No: Fever, Chills, Sweats, Weakness, Malaise, Other ENT: No: Ear pain, Ear discharge, Nose pain, Nose discharge, Nose congestion, Mouth pain, Mouth swelling, Throat pain, Throat swelling, Other Respiratory: No: Cough, Dry, Shortness of breath, SOB with excertion, Wheezing, Hemoptysis, Pleuritic Pain, Sputum, Wheezing, Other Cardiovascular: Chest Pain; No: Palpitations, Orthopnea, Paroxysmal Noc. Dyspnea, Edema, Lt Headedness, Other Gastrointestinal: No: Nausea, Vomiting, Abdominal Pain, Diarrhea, Constipation, Melena, Hematochezia, Other Genitourinary: No Dysuria, No Frequency, No Incontinence, No Hematuria, No Retention, No Other Musculoskeletal: back pain; No: other, neck pain, shoulder pain, arm pain, hand pain, leg pain, foot pain Skin: No: Rash, Lesions, Jaundice, Bruising, Other Neurological: Weakness; No: Numbness, Incoordination, Change in speech, Confusion, Seizures, Other Allergies: Coded Allergies: Aspirin (Verified Allergy, Unknown, 11/12/24) Doxycycline (Verified Allergy, Unknown, 11/12/24) Penicillins (Verified Allergy, Unknown, 10/28/24) Medications Current Medications Medications Dose Ordered Sig/Cira Route Start Time Stop Time Status Last Admin Dose Admin Acetaminophen/ Hydrocodone Bitart 1 tab Q4HP PRN PO 11/12/24 13:00 UNV Ondansetron HCl 4 mg Q4HP PRN IV 11/12/24 13:00 UNV Docusate Sodium 100 mg BIDPRN PRN PO 11/12/24 13:00 UNV Acetaminophen 650 mg Q6HP PRN PO 11/12/24 13:00 UNV Nitroglycerin 0.4 mg Q5MINP PRN SL 11/12/24 13:00 UNV Morphine Sulfate 2 mg Q30M PRN IV 11/12/24 13:00 UNV Diagnostic Test (Pha) 1 strip ACHS 11/12/24 17:00 UNV Insulin Human Regular HS SC 11/12/24 22:00 UNV Insulin Human Regular AC SC 11/12/24 17:00 UNV Dextrose 50 ml UD PRN IV 11/12/24 13:00 UNV Exam Vital Signs Vital Signs Date Time Temp Pulse Resp B/P (MAP) Pulse Ox O2 Delivery O2 Flow Rate FiO2 11/12/24 12:00 106 22 146/72 (96) 98 11/12/24 10:56 Room Air* 0 21 11/12/24 08:52 97.9 97.9 General Appearance: Alert, Other (Oriented x 1) HEENT: Atraumatic, PERRLA, Other Respiratory: Clear to auscultation, Normal air movement Cardiovascular: Normal S1, Normal S2, Other (frequent PVC's, ST) Abdominal: Normal bowel sounds, Soft, No tenderness, No hepatospenomegaly Extremities: No clubbing, No cyanosis, No edema, Normal pulses, No tenderness/swelling Skin: No rashes, No breakdown, No significant lesion Neuro: Normal speech, Strength at 5/5 X4 ext Psych/Mental Status: Mental status NL Labs/Xrays Labs Test 11/12/24 12:00 11/12/24 09:08 Range/Units Troponin I High Sensitivity 48 </=54 ng/L White Blood Count 9.8 4.4-10.8 10^3/uL Red Blood Count 3.80 L 4.5-5.90 10^6/uL Hemoglobin 10.6 L 13.5-17.5 g/dL Hematocrit 31.5 L 41.0-53.0 % Mean Corpuscular Volume 82.8 80.0-100.0 fL Mean Corpuscular Hemoglobin 28.0 28.0-32.0 pg Mean Corpuscular Hemoglobin Concent 33.8 32.0-36.0 g/dL Red Cell Distribution Width 14.4 H 11.8-14.3 % Platelet Count 397 140-450 10^3/uL Mean Platelet Volume 7.3 6.9-10.8 fL Neutrophils (%) (Auto) 80.0 37.0-80.0 % Lymphocytes (%) (Auto) 7.7 L 10.0-50.0 % Monocytes (%) (Auto) 10.1 0.0-12.0 % Eosinophils (%) (Auto) 1.5 0.0-7.0 % Basophils (%) (Auto) 0.7 0.0-2.0 % Neutrophils # (Auto) 7.8 1.6-8.6 10 ^3/uL Lymphocytes # (Auto) 0.8 0.4-5.4 10 ^3/uL Monocytes # (Auto) 1.0 0-1.3 10 ^3/uL Eosinophils # (Auto) 0.1 0-0.8 10 ^3/uL Basophils # (Auto) 0.1 0-0.2 10 ^3/uL Nucleated Red Blood Cells 0.1 % Sodium Level 139 136-145 mmol/L Potassium Level 3.6 3.5-5.1 mmol/L Chloride Level 101 98-107 mmol/L Carbon Dioxide Level 25 20-31 mmol/L Anion Gap 13 5-15 Blood Urea Nitrogen 21 9-23 mg/dL Creatinine 1.14 0.700-1.30 mg/dL Glomerular Filtration Rate Calc 68 >90 mL/min BUN/Creatinine Ratio 18.4 10.0-20.0 Serum Glucose 178 H 74-106 mg/dL Calcium Level 8.3 L 8.7-10.4 mg/dL CHEST RADIOGRAPH FINDINGS: Lines and Tubes: None Lungs: Increased interstital prominence. This may represent pulmonary vascular congestion and/or viral pneumonia. Clinical correlation advised. Pleura: No effusion. No pneumothorax. Cardiomediastinal contours: Cardiomegaly Bones: Unremarkable IMPRESSION: Increased interstitial prominence. This may represent pulmonary vascular congestion and/or viral pneumonia. Clinical correlation advised. SEPSIS Sepsis Screen Date sepsis recognized/suspect: Nov 12, 2024 Time Sepsis recognized/suspect: 0848 Recent Procedure: No On Antibiotic Therapy: No Respiratory Rate >20: No Heart Rate >90: Yes Temp<36 C (96.8 F) or >38.3 C: No SBP <90 or MAP <65 mmHG: No New Acute Mental Status Change: No Is the patient on CPAP, BIPAP,: No Physician Orders Chest Portable (11/12/24 08:58) Admit (11/12/24 12:50) Code Status (11/12/24 12:50) 2 Gm Sodium Diet (11/12/24 Lunch) Hydrocodone-Acet 5/325mg Tab ([place] 32 (11/12/24 13:00) Ondansetron Hcl (Zofran) (11/12/24 13:00) Docusate Sodium Capsule (Colace Capsule) (11/12/24 13:00) Fall Risk Precautions In Place QSHIFT (11/12/24 12:50) Complete Blood Count (11/13/24 04:00) Comprehensive Metabolic Panel (11/13/24 04:00) Pt Request For Service (11/12/24 12:50) Condition: Serious (11/12/24 12:50) Acetaminophen Tablet (Tylenol Tablet) (11/12/24 13:00) Nitroglycerin Sublingual (Ntrostat Subli (11/12/24 13:00) Morphine Sulfate Injection (11/12/24 13:00) Stat Ekg For Chest Pain (11/12/24 12:50) Notify Md Of Changes From Base (11/12/24 12:50) Production Planner Scheduler For 24 Hours (11/12/24 12:50) Emergency Dysrhythmia Protocol (11/12/24 12:50) Rhythm Strips Once Every Shift (11/12/24 12:50) Oxygen By Nasal Cannula (11/12/24 12:50) Glucose Blood (Accu-Chek Comfort Curve T (11/12/24 17:00) Insulin R (Human) (Insulin R) (11/12/24 22:00) Insulin R (Human) (Insulin R) (11/12/24 17:00) Dextrose 50% Syringe (11/12/24 13:00) Bisacodyl Suppository (Dulcolax Supposit (11/12/24 13:15) Duloxetine Hcl Capsule (Cymbalta Capsule (11/13/24 10:00) Enoxaparin Sodium (Lovenox) (11/13/24 10:00) Hydromorphone Tablet (Dilaudid Tablet) (11/12/24 13:15) Hydromorphone Tablet (Dilaudid Tablet) (11/12/24 18:00) Lidocaine 5% Topical Patch (Lidoderm 5% (11/13/24 10:00) Pantoprazole Tablet (Protonix Tablet) (11/12/24 22:00) Senna Pod Tablet (Senokot Tablet) (11/13/24 10:00) Trazodone Hcl (Desyrel) (11/12/24 13:15) (Nf) Atorvastatin Calcium (11/12/24 18:00) (Nf) Carvedilol (11/12/24 22:00) (Nf) Cefazolin Sodium (Cefazolin) (11/12/24 14:00) (Nf) Empagliflozin (Jardiance) (11/13/24 10:00) (Nf) Insulin Lispro Protamine & Lis (Hum (11/12/24 22:00) Vital Signs Date Time Temp Pulse Resp B/P (MAP) Pulse Ox O2 Delivery O2 Flow Rate FiO2 11/12/24 12:00 106 22 146/72 (96) 98 11/12/24 11:35 105 11/12/24 11:29 104 24 186/66 11/12/24 10:56 98 20 98 Room Air* 0 21 11/12/24 10:00 95 21 163/75 (104) 98 11/12/24 09:36 104 11/12/24 08:52 97.9 98 21 175/80 (111) 98 97.9 11/12/24 08:42 98.8 103 18 122/82 95 98.8 11/12/24 08:33 96 Laboratory Tests Test 11/12/24 09:08 White Blood Count 9.8 10^3/uL (4.4-10.8) Medications Medications Dose Ordered Sig/Cira Route Start Time Stop Time Status Last Admin Dose Admin Morphine Sulfate 4 mg ONCE ONCE IV 11/12/24 11:00 11/12/24 11:15 DC 11/12/24 11:29 4 MG Ondansetron HCl 4 mg ONCE ONCE IV 11/12/24 11:00 11/12/24 11:15 DC 11/12/24 11:28 4 MG Assessment/Plan Assessment/Plan Assessment: Elevated troponin, Acute metabolic encephalopathy, Hyperglycemia, UTI, Anemia, Hypertension, Diabetes, Plan: Admit to Tele, UA, Urine culture, IV antibiotics, Fall precautions, Physical therapy evaluation, Home medications reconciled, Plan discussed with: Patient My Orders Orders - INA DE LOS SANTOS 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 Procedure Category Date Status Time Admit ADMIT 11/12/24 Transmitted 12:50 Code Status CODE 11/12/24 Transmitted 12:50 2 Gm Sodium Diet DIET 11/12/24 Transmitted Lunch Hydrocodone-Acet PHA 11/12/24 Logged 5/325mg Tab ([place] 13:00 Ondansetron Hcl PHA 11/12/24 Logged (Zofran) 13:00 Docusate Sodium PHA 11/12/24 Logged Capsule (Colace 13:00 Fall Risk Precautions [facility]AMP 11/12/[address] 12:50 Complete Blood Count LAB 11/13/24 Verified 04:00 Comprehensive LAB 11/13/24 Verified Metabolic Panel 04:00 Pt Request For Service PT 11/12/24 Logged 12:50 Condition: Serious [facility]AMP 11/12/24 In Process 12:50 Acetaminophen Tablet PHA 11/12/24 Logged (Tylenol Tablet) 13:00 Nitroglycerin PHA 11/12/24 Logged Sublingual (Ntrostat 13:00 Morphine Sulfate PHA 11/12/24 Logged Injection 13:00 Stat Ekg For Chest [facility] 11/12/24 In Process Pain 12:50 Notify Of Changes [facility] 11/12/24 In Process From Base 12:50 Production Planner Scheduler For [facility]AMP 11/12/24 In Process 24 Hours 12:50 Emergency Dysrhythmia [facility] 11/12/24 In Process Protocol 12:50 Rhythm Strips Once [facility]AMP 11/12/24 In Process Every Shift 12:50 Oxygen By Nasal RT 11/12/24 Transmitted Cannula 12:50 Glucose Blood PHA 11/12/24 Logged (Accu-Chek Comfort 17:00 Insulin R (Human) PHA 11/12/24 Logged (Insulin R) 22:00 Insulin R (Human) PHA 11/12/24 Logged (Insulin R) 17:00 Dextrose 50% Syringe PHA 11/12/24 Logged 13:00 Bisacodyl Suppository PHA 11/12/24 Transmitted (Dulcolax Supposit 13:15 Duloxetine Hcl PHA 11/13/24 Transmitted Capsule (Cymbalta 10:00 Enoxaparin Sodium PHA 11/13/24 Transmitted (Lovenox) 10:00 Hydromorphone Tablet PHA 11/12/24 Transmitted (Dilaudid Tablet) 13:15 Hydromorphone Tablet PHA 11/12/24 Transmitted (Dilaudid Tablet) 18:00 Lidocaine 5% Topical PHA 11/13/24 Transmitted Patch (Lidoderm 5% 10:00 Pantoprazole Tablet PHA 11/12/24 Transmitted (Protonix Tablet) 22:00 Senna Pod Tablet PHA 11/13/24 Transmitted (Senokot Tablet) 10:00 Trazodone Hcl PHA 11/12/24 Transmitted (Desyrel) 13:15 (Nf) Atorvastatin PHA 11/12/24 Transmitted Calcium 18:00 (Nf) Carvedilol PHA 11/12/24 Transmitted 22:00 (Nf) Cefazolin Sodium PHA 11/12/24 Transmitted (Cefazolin) 14:00 (Nf) Empagliflozin PHA 11/13/24 Transmitted (Jardiance) 10:00 (Nf) Insulin Lispro PHA 11/12/24 Transmitted Protamine & Lis (Hum 22:00 Date of Service: Nov 12, 2024 Billing Provider: INA DE LOS SANTOS Common Visit Codes: [id number] INP/OBS CARE (MOD) INA DE LOS SANTOS Nov 12, 2024 13:33
[2024-11-12] MEDS ORDERED: CEFAZOLIN SODIUM 2 GM IV SCH (14:00)
[2024-11-12] MEDS ORDERED: MORPHINE SULFATE 4 MG/ML SYR/VIAL IV PRN (15:00)
[2024-11-12] MEDS: ceFAZolin 2 GM/D5W50ml 50 ML IV SCH (16:00)
[2024-11-12 16:25] VITALS: BP 142/72; PULSE 92; PULSE 94; RESP 18; RESP 20; TEMP 98.6; O2SAT 97
[2024-11-12 17:00] VITALS: BP 136/82; PULSE 96; RESP 19; TEMP 98.4; O2SAT 96
[2024-11-12] MEDS: InsuLIN REG 1unit/0.01ml Soln (100units/ml) SC SCH ×2 (17:00→22:00)
[2024-11-12] MEDS: ACCU-CHEK COMFORT CURVE STRIP VI SCH (17:00)
[2024-11-12 17:52] LABS: Urine Protein, UAD 2+ (Negative)
[2024-11-12] MEDS ORDERED: PATIENTS OWN MEDICATION (Atorvastatin Calcium 1 TAB) PO SCH (18:00)
[2024-11-12 20:00] VITALS: PULSE 101; PULSE 102; RESP 18; O2SAT 96
[2024-11-12 21:00] VITALS: BP 145/73; PULSE 92; RESP 18; TEMP 97.8; O2SAT 96
[2024-11-12] MEDS: INSULIN LISPRO SC SCH (22:00)
[2024-11-12] MEDS ORDERED: ceFAZolin 2 GM/D5W100ml 100 ML IV SCH (22:00)
[2024-11-12] MEDS: INSULIN LISPRO PROTAMINE SC SCH (22:00)
[2024-11-12] MEDS ORDERED: PATIENTS OWN MEDICATION (Carvedilol 1 TAB) PO SCH (22:00)
[2024-11-12] MEDS: PANTOPRAZOLE 40 MG TAB PO SCH (22:10)
[2024-11-12] MEDS: CARVEDILOL 3.125 MG TAB PO SCH (22:10)
[2024-11-12] MEDS: ENOXAPARIN SOD 40 MG/0.4 ML SYRINGE SC SCH (22:11)
[2024-11-13] VITALS (8 sets, daily range): BP systolic 118–150; BP diastolic 54–82; PULSE 61–92; RESP 16–20; TEMP 97.4–99.3; O2SAT 92–99
[2024-11-13 06:20] LABS: Hematocrit 25.1 % (41.0-53.0); Hemoglobin 8.5 g/dL (13.5-17.5); Mean Corpuscular Hemoglobin 28.3 pg (28.0-32.0); Mean Corpuscular Volume 83.3 fL (80.0-100.0); Nucleated Red Blood Cells % 0.1 %
[2024-11-13 06:41] LABS: Alkaline Phosphatase 82 U/L (46-116); Anion Gap 13 (5-15); BUN/Creatinine Ratio 19.6 (10.0-20.0); Blood Urea Nitrogen 19 mg/dL (9-23); Carbon Dioxide 25 mmol/L (20-31); Chloride 103 mmol/L (98-107); Potassium 3.7 mmol/L (3.5-5.1); Sodium 141 mmol/L (136-145); Total Protein 6.3 g/dL (5.7-8.2)
[2024-11-13 06:43] LABS: Alanine Aminotransferase < 9 U/L (7-40); Albumin 2.7 g/dL (3.2-4.8); Bilirubin, Total 0.3 mg/dL (0.2-1.0); Calcium 7.7 mg/dL (8.7-10.4); Glucose 132 mg/dL (74-106)
[2024-11-13] MEDS ORDERED: ENOXAPARIN SOD 80 MG/0.8ML SYRINGE SC SCH (10:00)
[2024-11-13] MEDS: ENOXAPARIN SOD 40 MG/0.4 ML SYRINGE SC SCH (10:00)
[2024-11-13] MEDS: LIDOCAINE 5% TOPICAL PATCH TOP SCH (10:00)
[2024-11-13] MEDS: SENNA 8.6 MG TAB PO SCH (10:02)
[2024-11-14] VITALS (55 sets, daily range): BP systolic 75–173; BP diastolic 45–99; PULSE 76–156; RESP 14–37; TEMP 97.6–99; O2SAT 93–100
[2024-11-14] MEDS: HALOPERIDOL LACTATE 5 MG/ML INJ VIAL IM ONE (00:30)
[2024-11-14] MEDS ORDERED: ACCU-CHEK COMFORT CURVE STRIP VI PRN (12:15)
[2024-11-14] MEDS: fentaNYL Drip 2500mCg/250mlNS 250 ML IV SCH (12:30)
[2024-11-14] MEDS: MIDAZOLAM DRIP 50 mg/50mL 50 ML IV SCH (12:30)
[2024-11-14 12:33] LABS: Hematocrit 33.8 % (41.0-53.0); Hemoglobin 10.7 g/dL (13.5-17.5); Mean Corpuscular Hemoglobin 27.7 pg (28.0-32.0); Mean Corpuscular Volume 87.4 fL (80.0-100.0); Nucleated Red Blood Cells % 0.2 %
[2024-11-14] MEDS: ETOMIDATE (2MG/ML) 20ML VIAL IV ONE (12:33)
[2024-11-14] MEDS: ROCURONIUM 10MG/ML 10ML VIAL IV ONE (12:34)
[2024-11-14] MEDS: MIDAZOLAM DRIP 50 mg/50mL 50 ML IV ONE (12:35)
[2024-11-14] MEDS: fentaNYL Drip 2500mCg/250mlNS 250 ML IV ONE (12:35)
[2024-11-14] MEDS: NOREPINEPHRINE 8 MG/250ML KIT 250 ML IV ONE (12:35)
[2024-11-14] MEDS: PROPOFOL 100 ML IV SCH (12:45)
[2024-11-14 12:48] LABS: Alanine Aminotransferase < 9 U/L (7-40); Albumin 3.2 g/dL (3.2-4.8); Alkaline Phosphatase 109 U/L (46-116); Anion Gap 19 (5-15); BUN/Creatinine Ratio 20.9 (10.0-20.0); Bilirubin, Total 0.4 mg/dL (0.2-1.0); Blood Urea Nitrogen 27 mg/dL (9-23); Calcium 8.3 mg/dL (8.7-10.4); Carbon Dioxide 19 mmol/L (20-31); Chloride 102 mmol/L (98-107); Glucose 227 mg/dL (74-106); Magnesium 2.1 mg/dL (1.6-2.6); Potassium 5.1 mmol/L (3.5-5.1); Sodium 140 mmol/L (136-145); Total Protein 7.4 g/dL (5.7-8.2)
--- NOTE | 2024-11-14 12:56 | DVH ---
CHEST RADIOGRAPH Indication: S/P CODE RAPID RESPONSE; SOB Technique: Single frontal view of the chest was obtained Comparison: XY CHEST PORTABLE on DOS: 11/12/24 FINDINGS: Lines and Tubes: External cardiac monitoring leads over the anterior chest as well as AED pad Lungs: Imminent bronchovascular markings hilar areas bilaterally and lower lobes with small pleural e ffusions Pleura: No effusion. No pneumothorax. Cardiomediastinal contours: Mildly enlarged Bones: No acute osseous abnormality. IMPRESSION: 1. Findings congestive failure. Can not entirely exclude superimposed.
--- NOTE | 2024-11-14 13:04 | RESUS ---
CODE ASSIST ASSESSSMENT Initial Information Code Assist Date: Nov 14, 2024 Code Assist Time: 12:02 Location of Arrest: [facility] Room [facility] 273A Provider Name DR BERTRAM ZELAYA-PRIMARY, DR BALDWIN, DR ALMEIDA-RESIDENT, DR HIGGINS-RESIDENT Time Notified: 12:02 Time PMD returned call: 12:19 Crash Cart Opened and Supplies: Yes Situation Staff concerned/worried, speci: HR >130, SaO2 <90, RR >28, Change LOC Situation comment: CONFUSED, PALE Background Background: SEE EMR Assessment Blood Pressure Systolic: 173 Blood Pressure Diastolic: 95 Respiratory Rate: 38 O2 Sat by Pulse Oximetry: 86 Bedside Blood Glucose: 172 Assessment comment: CONFUSED/PALE/STATED "IM GONNA " Recommendations/Interventions Procedures: Accu check, CXR Portable, Troponin, EKG, Cardiac Monitoring, Inititate ACLS Protocol, Intubated, O2 Mask/NC Outcome Outcome: Transfer to ICU Follow up Report Follow up Report ETOMIDATE 20 MG IV, ROCURONIUM 50MG IV BOTH GIVEN AT 1237. INTUBATED AT 1239 WITH POSITIVE COLOR CHANGE AND LUNG AUSCULTATION AFTER DR HIGGINS PLACED SIZE 8.0/24 AT LIP WITH GLIDASCOPE Team Members Team Members AGAPITO AGUIRRE RN, SULY AGUIRRE RN, STAN IT PROGRAM ENGAGEMENT DIRECTOR, BITA RN, LEVI RT, RORO RT, LEVY Sutherland RN, DANK RN, BRAD Daniel RN, DR BALDWIN, DR HIGGINS- RESIDENT, DR ALMEIDA RESIDENT Stan Cross Nov 14, 2024 13:04
[2024-11-14 13:15] LABS: Base Excess -9.7 mmol/L (-2.0-3.0)
[2024-11-14 13:59] LABS: INR 1.08 (0.9-1.15); Partial Thromboplastin Time 30.7 SEC (24.5-34.5); Prothrombin Time 11.4 sec (9.3-11.8)
[2024-11-14] MEDS: NOREPINEPHRINE 8 MG/250ML KIT 250 ML IV SCH (14:22)
[2024-11-14 14:27] LABS: Base Excess -1.4 mmol/L (-2.0-3.0)
--- NOTE | 2024-11-14 14:33 | DVH ---
EXAM:XR Chest, 1 View. CLINICAL HISTORY: intubation COMPARISON:None provided. FINDINGS: LINES AND TUBES:Endotracheal tube, arterial catheter, right central venous catheter in satisfactory p osition. LUNGS:Unchanged pulmonary vascular congestion. PLEURAL SPACES:Unchanged small bilateral pleural effusions. HEART:Unchanged cardiomegaly. BONES:No acute osseous abnormality. IMPRESSION:1. Unchanged pulmonary vascular congestion, cardiomegaly, and small bilateral pleural effu sions.
[2024-11-14] MEDS: FUROSEMIDE 100 MG/10ML VIAL IV ONE (15:04)
[2024-11-14] MEDS: methylPREDNISolone SOD SUCC 125 MG/2 ML VL IV ONE (15:04)
--- NOTE | 2024-11-14 15:06 | DVHPN2 ---
Reviewed: Care Plan, H&P Changes from previous H/P or p: No Changes General: Per HPI ENT: No Ear pain, No Ear discharge, No Nose pain, No Nose discharge, No Nose congestion, No Mouth pain, No Mouth swelling, No Throat pain, No Throat swelling, No Other Cardiovascular: Chest Pain; No Palpitations, No Orthopnea, No Paroxysmal Noc. Dyspnea, No Edema, No Lt Headedness, No Other Respiratory: No Cough, No Dry, No Shortness of breath, No SOB with excertion, No Wheezing, No Hemoptysis, No Pleuritic Pain, No Sputum, No Other Gastrointestinal: No Nausea, No Vomiting, No Abdominal Pain, No Diarrhea, No Constipation, No Melena, No Hematochezia, No Other Genitourinary: No Dysuria, No Frequency, No Incontinence, No Hematuria, No Retention, No Other Musculoskeletal: No other, No neck pain, No shoulder pain, No arm pain; back pain; No hand pain, No leg pain, No foot pain Skin: No Rash, No Lesions, No Jaundice, No Bruising, No Other Objective Vitals Vital Signs Date Time Temp Pulse Resp B/P (MAP) Pulse Ox O2 Delivery O2 Flow Rate FiO2 11/14/24 14:20 113 20 88/58 (68) 100 100 11/14/24 14:06 97.6 97.6 11/14/24 08:00 Room Air* 0 Intake/Output Intake and Output 11/14/24 07:00 Intake Total 740 ml Output Total 1150 ml Balance -410 ml Intake Oral 640 ml IV Total 100 ml Output Urine Total 1150 ml # Voids 2 Medications Current Medications Medications Dose Ordered Sig/Cira Route Start Time Stop Time Status Last Admin Dose Admin Acetaminophen 650 mg Q6HP PRN PO 11/12/24 13:00 Diagnostic Test (Pha) 1 strip ACHS 11/12/24 17:00 11/14/24 14:57 1 STRIP Insulin Human Regular AC SC 11/12/24 17:00 11/13/24 12:02 2 UNITS Dextrose 50 ml UD PRN IV 11/12/24 13:00 Bisacodyl 10 mg DAILYP PRN ID 11/12/24 13:15 Enoxaparin Sodium 40 mg DAILY SC 11/13/24 10:00 UNV Patient Own Medication 1 tab QPM PO 11/12/24 18:00 UNV Patient Own Medication 1 tab BID PO 11/12/24 22:00 UNV Patient Own Medication 2 gm Q8HR IV 11/12/24 14:00 UNV Enoxaparin Sodium 40 mg DAILY SC 11/13/24 10:00 Diagnostic Test (Pha) 1 strip PERCODEBLUE PRN 11/14/24 12:15 11/15/24 12:14 Albuterol 2.5 mg Q4HPRN PRN NEB 11/14/24 12:30 Ipratropium [place] 0.5 mg Q4HR NEB 11/14/24 14:00 Propofol 100 ml @ 1.845 mls/ hr Q24H IV 11/14/24 12:45 Midazolam HCl 50 ml @ 1 mls/hr Q24H IV 11/14/24 12:45 Fentanyl Citrate 250 ml @ 2.5 mls/hr Q24H IV 11/14/24 12:45 Norepinephrine Bitartrate 250 ml @ 3.75 mls/hr Q24H IV 11/14/24 13:00 Patient Own Medication 15 unit BID SC 11/14/24 22:00 Laboratory Results Laboratory Tests 11/14/24 12:20 Chemistry Test 11/14/24 12:20 Albumin 3.2 g/dL (3.2-4.8) Calcium Level 8.3 mg/dL (8.7-10.4) L Magnesium Level 2.1 mg/dL (1.6-2.6) Total Protein 7.4 g/dL (5.7-8.2) Coagulation Test 11/14/24 12:20 Prothrombin Time 11.4 sec (9.3-11.8) Prothrombin Time INR 1.08 (0.9-1.15) Activated Partial Thromboplast Time 30.7 SEC (24.5-34.5) D-Dimer, Quantitative 3.13 mg/L FEU (0.0-0.49) H LFT Test 11/14/24 12:20 Alanine Aminotransferase (ALT) < 9 U/L (7-40) Alkaline Phosphatase 109 U/L (46-116) Aspartate Amino Transferase (AST) 33 U/L (13-40) Total Bilirubin 0.4 mg/dL (0.2-1.0) Urinalysis Test 11/12/24 11:06 Urine Color Light-yellow (Yellow) Urine Clarity Clear (Clear) Urine pH 6.5 (5.0-9.0) Urine Specific [place] 1.015 (1.001-1.035) Urine Protein 2+ (Negative) H Urine Ketones 1+ (Negative) H Urine Blood 3+ /uL (Negative) H Urine Nitrite Negative (Negative) Urine Bilirubin Negative (Negative) Urine Urobilinogen Normal mg/dL (Negative) Urine Leukocyte Esterase Negative /uL (Negative) Urine RBC 110 /hpf (0 - 3) Urine Microscopic WBC 7 /HPF (0-3) H Urine Squamous Epithelial Cells Few /hpf (<5) Urine Bacteria None seen /hpf (None Seen) Urine Glucose 4+ mg/dL (Normal) H Blood Gas Results Test 11/14/24 12:18 11/14/24 14:19 Arterial Blood pH 7.165 (7.350-7.450) 7.476 (7.350-7.450) FiO2 % 100.0 100.0 Labs and/or images reviewed: Labs reviewed by me, Image(s) reviewed by me Assessment/Plan Assessment/Plan Zapata Kevin is a 74-year-old male with past medial history of diabetes, hypertension, chronic pain, and dementia, who was brought to the hospital by EMS for back and chest pain. Patient has a history of chronic back pain and is managed by pain management. He was brought to the hospital today due to worsening pain, weakness, and a fall. Patient is A&O x 1 on my assessment and a poor historian. Elevated troponin, Acute metabolic encephalopathy, Hyperglycemia, UTI, Anemia, Hypertension, Diabetes, suspected aspiration pna dysphagia 11/13/2024: spoke with pt after nursing observe that he choked on his food briefly. Vital signs normal and pt was able to cough and complete full sentences. during my conservation with him, pt refused to have an X-ray day, stating that he does want anything done and does not anyone to touch him. I explained the risks but pt continue to refuse. Pt was able to verbalize his name and his whereabout (A&Ox3). Nursing was at bedside during my conversation with pt Plan discussed with: Patient Date of Service: Nov 13, 2024 Billing Provider: PEDRO LUIS BURDEN DO Common Visit Codes: [id number] INP/OBS CARE(HIGH) PEDRO LUIS BURDEN DO Nov 14, 2024 15:06
--- NOTE | 2024-11-14 15:12 | DVHPN2 ---
Reviewed: Care Plan, H&P Changes from previous H/P or p: No Changes General: Per HPI ENT: No Ear pain, No Ear discharge, No Nose pain, No Nose discharge, No Nose congestion, No Mouth pain, No Mouth swelling, No Throat pain, No Throat swelling, No Other Cardiovascular: Chest Pain; No Palpitations, No Orthopnea, No Paroxysmal Noc. Dyspnea, No Edema, No Lt Headedness, No Other Respiratory: No Cough, No Dry, No Shortness of breath, No SOB with excertion, No Wheezing, No Hemoptysis, No Pleuritic Pain, No Sputum, No Other Gastrointestinal: No Nausea, No Vomiting, No Abdominal Pain, No Diarrhea, No Constipation, No Melena, No Hematochezia, No Other Genitourinary: No Dysuria, No Frequency, No Incontinence, No Hematuria, No Retention, No Other Musculoskeletal: No other, No neck pain, No shoulder pain, No arm pain; back pain; No hand pain, No leg pain, No foot pain Skin: No Rash, No Lesions, No Jaundice, No Bruising, No Other Objective Vitals Vital Signs Date Time Temp Pulse Resp B/P (MAP) Pulse Ox O2 Delivery O2 Flow Rate FiO2 11/14/24 14:20 113 20 88/58 (68) 100 100 11/14/24 14:06 97.6 97.6 11/14/24 08:00 Room Air* 0 Intake/Output Intake and Output 11/14/24 07:00 Intake Total 740 ml Output Total 1150 ml Balance -410 ml Intake Oral 640 ml IV Total 100 ml Output Urine Total 1150 ml # Voids 2 Medications Current Medications Medications Dose Ordered Sig/Cira Route Start Time Stop Time Status Last Admin Dose Admin Acetaminophen 650 mg Q6HP PRN PO 11/12/24 13:00 Diagnostic Test (Pha) 1 strip ACHS 11/12/24 17:00 11/14/24 14:57 1 STRIP Insulin Human Regular AC SC 11/12/24 17:00 11/13/24 12:02 2 UNITS Dextrose 50 ml UD PRN IV 11/12/24 13:00 Bisacodyl 10 mg DAILYP PRN [place] 11/12/24 13:15 Enoxaparin Sodium 40 mg DAILY SC 11/13/24 10:00 UNV Patient Own Medication 1 tab QPM PO 11/12/24 18:00 UNV Patient Own Medication 1 tab BID PO 11/12/24 22:00 UNV Patient Own Medication 2 gm Q8HR IV 11/12/24 14:00 UNV Enoxaparin Sodium 40 mg DAILY SC 11/13/24 10:00 Diagnostic Test (Pha) 1 strip PERCODEBLUE PRN 11/14/24 12:15 11/15/24 12:14 Albuterol 2.5 mg Q4HPRN PRN NEB 11/14/24 12:30 Ipratropium [place] 0.5 mg Q4HR NEB 11/14/24 14:00 Propofol 100 ml @ 1.845 mls/ hr Q24H IV 11/14/24 12:45 Midazolam HCl 50 ml @ 1 mls/hr Q24H IV 11/14/24 12:45 Fentanyl Citrate 250 ml @ 2.5 mls/hr Q24H IV 11/14/24 12:45 Norepinephrine Bitartrate 250 ml @ 3.75 mls/hr Q24H IV 11/14/24 13:00 Patient Own Medication 15 unit BID SC 11/14/24 22:00 Laboratory Results Laboratory Tests 11/14/24 12:20 Chemistry Test 11/14/24 12:20 Albumin 3.2 g/dL (3.2-4.8) Calcium Level 8.3 mg/dL (8.7-10.4) L Magnesium Level 2.1 mg/dL (1.6-2.6) Total Protein 7.4 g/dL (5.7-8.2) Coagulation Test 11/14/24 12:20 Prothrombin Time 11.4 sec (9.3-11.8) Prothrombin Time INR 1.08 (0.9-1.15) Activated Partial Thromboplast Time 30.7 SEC (24.5-34.5) D-Dimer, Quantitative 3.13 mg/L FEU (0.0-0.49) H LFT Test 11/14/24 12:20 Alanine Aminotransferase (ALT) < 9 U/L (7-40) Alkaline Phosphatase 109 U/L (46-116) Aspartate Amino Transferase (AST) 33 U/L (13-40) Total Bilirubin 0.4 mg/dL (0.2-1.0) Urinalysis Test 11/12/24 11:06 Urine Color Light-yellow (Yellow) Urine Clarity Clear (Clear) Urine pH 6.5 (5.0-9.0) Urine Specific [place] 1.015 (1.001-1.035) Urine Protein 2+ (Negative) H Urine Ketones 1+ (Negative) H Urine Blood 3+ /uL (Negative) H Urine Nitrite Negative (Negative) Urine Bilirubin Negative (Negative) Urine Urobilinogen Normal mg/dL (Negative) Urine Leukocyte Esterase Negative /uL (Negative) Urine RBC 110 /hpf (0 - 3) Urine Microscopic WBC 7 /HPF (0-3) H Urine Squamous Epithelial Cells Few /hpf (<5) Urine Bacteria None seen /hpf (None Seen) Urine Glucose 4+ mg/dL (Normal) H Blood Gas Results Test 11/14/24 12:18 11/14/24 14:19 Arterial Blood pH 7.165 (7.350-7.450) 7.476 (7.350-7.450) FiO2 % 100.0 100.0 Assessment/Plan Assessment/Plan ZapataKevin is a 74-year-old male with past medial history of diabetes, hypertension, chronic pain, and dementia, who was brought to the hospital by EMS for back and chest pain. Patient has a history of chronic back pain and is managed by pain management. He was brought to the hospital today due to worsening pain, weakness, and a fall. Patient is A&O x 1 on my assessment and a poor historian. Elevated troponin, Acute metabolic encephalopathy, Hyperglycemia, UTI, Anemia, Hypertension, Diabetes, suspected aspiration pna dysphagia 11/13/2024: spoke with pt after nursing observe that he choked on his food briefly. Vital signs normal and pt was able to cough and complete full sentences. during my conservation with him, pt refused to have an X-ray day, stating that he does want anything done and does not anyone to touch him. I explained the risks but pt continue to refuse. Pt was able to verbalize his name and his whereabout (A&Ox3). Nursing was at bedside during my conversation with pt 11/14/2024: pt had a rapid/code called during to worsening altered mental status. Pt was intubated and brought to [facility]. rounded on pt with nursing at bedside. attempted to talk with but she left. critical time: >45 minutes Plan discussed with: Other (nurisng staff) Date of Service: Nov 14, 2024 Billing Provider: PEDRO LUIS BURDEN DO Common Visit Codes: [id number] CARE 30-74 MIN PEDRO LUIS BURDEN DO Nov 14, 2024 15:12
[2024-11-14 15:32] LABS: Urine Protein, UAD 2+ (Negative)
[2024-11-14 15:44] LABS: Cannabinoid Screen, Urine Neg (NEGATIVE); Opiate Scree,Urine Neg (NEGATIVE)
[2024-11-14 15:45] LABS: Amphetamine Screen, Urine Neg (NEGATIVE); Barbiturate Scree,Urine Neg (NEGATIVE); Benzodiazephine Screen, Urine Neg (NEGATIVE); Cocaine Screen, Urine Neg (NEGATIVE); Phencyclidine Screen, Urine Neg (NEGATIVE)
[2024-11-14] MEDS ORDERED: ACETAMINOPHEN 325 MG TAB PO PRN (17:00)
--- NOTE | 2024-11-14 17:00 | DVHNC2 ---
Date of Service: Nov 14, 2024 Billing Provider: MINI BALDWIN MD, RAGHAVA RAO RESIDENT Nov 14, 2024 17:00
--- NOTE | 2024-11-14 17:01 | DVHNC2 ---
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: Other Indication: Hypotension, Volume resuscitation Room prepared for procedure: Yes Cured Meats Supervisor performed hand hygien: Yes Maximal sterile barrier precau: Mask/Eye shield, Sterile gown, Cap, Sterlie gloves, Large sterlie drape Skin Preparation: Chlorhexidine gluconate, Providine iodine, Alcohol Skin preparation completely dr: Yes Insertion site: Right, Internal jugular, Line secured Central line catheter type: [id number] dialysis Number of lumens: 3 Antiseptic ointment applied to: Yes Post Assessment: Chest X-Ray, Proper placement, No Pneumothorax Informed consent obtained: Yes Risks/benefits/alt described: Yes UTO Consent The risks and benefits of the procedure and the sedation options and risk were discussed with the patient's healthcare proxy. All questions were answered and informed consent was obtained Notes ULTRASOUND-GUIDED RIGHT INTERNAL JUGULAR CENTRAL VENOUS CANNULATION CPT Codes: 65848 (ultrasound guidance) 79472 (insertion of non-tunneled centrally inserted central venous catheter) 14113 (CXR interpretation) Time out time: Patient medications and allergies reviewed. The risks and benefits of the procedure and the sedation options and risk were discussed with the patient's healthcare proxy. All questions were answered and informed consent was obtained. Patient identification and proposed procedure were verified prior to the procedure by the physician, and a nurse in the patient's room. The heart rate, respiratory rate, oxygen saturations, blood pressure, adequacy of pulmonary ventilation, and response to care were monitored throughout the procedure. The physical status of the patient was reassessed after the procedure. PHYSICIAN: Mini Baldwin MD PREOPERATIVE DIAGNOSIS: Acute hypoxic respiratory failure POSTOPERATIVE DIAGNOSIS: Acute hypoxic respiratory failure PROCEDURE PERFORMED: Limited Ultrasound-guided Right internal jugular central line placement. ANESTHESIA: 2 mL of 1% lidocaine plain. ESTIMATED BLOOD LOSS: less than 5 mL. SPECIMENS: None. COMPLICATIONS: None. INDICATIONS FOR PROCEDURE: The patient is in need of large bore IV access for administration of fluids, including blood products and vasoactive drugs, possible transvenous cardiac pacing and CVP monitoring for hemodynamic instability. DESCRIPTION OF PROCEDURE IN DETAIL: The patient was lying in the Trendelenburg position with head turned 30 degrees away from the insertion site. The skin was thoroughly sponged with chlorhexidine and allowed to dry. All persons involved were shielded with hair nets, face masks and sterile gowns. With sterile-gloved hands the right neck area was draped with the large disposable sterile field provided in the pre-manufactured kit. The skin and subcutaneous tissues superficial to the RIGHT internal jugular vein were anesthetized with 2 mL of 1% lidocaine. The RIGHT internal jugular vein was identified on ultrasound from the angle of the mandible down into the supraclavicular fossa using the linear ultrasound probe in the transverse orientation. The carotid artery was identified and avoided utilizing color-flow. The internal jugular vein was then placed in the center of the ultrasound field and compressed for patency. A movement artifact was identified as the needle was advanced through the skin and advanced toward the vessel. A real time hyperechoic signal revealed visualization of vascular needle entry into the lumen as blood was noted to flashback in the syringe. The needle was then held in place while the guide wire was advanced. The needle was then removed. Direct visualization of guide wire location within the vein was noted on ultrasound indicating proper placement and was document in the electronic medical record chart. A skin dilator was advanced over the guidewire and removed, and the triple-lumen catheter was then advanced over the guide wire into proper position. The guide wire was removed and discarded. The ports were aspirated which showed good blood return and then carefully flushed with normal saline. The catheter was stabilized and sutured to the skin with 2-0 silk at 4 anchor points. A sterile bio-patch and dressing was placed over the catheter, including the insertion site. The patient tolerated the procedure well. A chest x-ray was ordered for position confirmation. I reviewed the image immediately after it was taken at bedside. Post-procedure chest x-ray demonstrates the central line in the superior vena and no evidence of any pneumothorax. An image recording of the procedure accompanies the chart. Date of Service: Nov 14, 2024 Billing Provider: MINI BALDWIN MD Common Visit Codes: PROCEDURE ONLY Procedure Codes: [id number] NON-TUNNEL CV CATH JULI HIGGINS Nov 14, 2024 17:01 MINI BALDWIN MD Nov 14, 2024 20:15
[2024-11-14 19:08] LABS: Base Excess -2.2 mmol/L (-2.0-3.0)
--- NOTE | 2024-11-14 19:50 | DVHPN2 ---
Assessment/Plan Assessment/Plan ICU note 74 M with IDDM, HTN, dementia admitted for worsening pain s/p mech fall. [employer] SUPPORT TECHNICI[employer] called today, patient found to be hypoxic and using accessory muscle to breath, decision made to intubate, discussed with bedside. Patient brought to ICU and was intubated, placed on mechanical vent. TLC placed in RIJ. Physical exam sedated, intubated on mechanical vent JVD mechanical breath sounds s1 s2 tachycardic abdomen soft trace LE edema vent ACVC 400 20 100% PEEP 5 drips levo, fentanyl, versed lines RIJ TLC, ETT, conroy, NGT labs, ekg imaging reviewed POCUS done showed mildly decreased contractility, grossly normal valves, septal hypokinetic, IVC dilated on intubated pt, scant b lines. assessment and plan acute hypoxic RF req mech vent acute systolic HF septic shock pulm edema PNA gp vs gn IDDM HTN acute metabolic encephalopathy dementia COPD? c/w pressors maintain MAP >65 c/w sedation maintain RASS 2-3 c/w mech vent adjust to gas diuresis, goal neg 1L dc ancef start cefepime, hold azithro for atypicals after EKG lispro ISS q4 bowel reg start TF tomorrow solumedrol, nebs diet NPO dvt ppx lovenox gi ppx protonix condition critical prognosis poor chem code 120 minutes crit care time 30 minutes advance care plan, discussed with , showed me advance directive after intubation, after discussion decision to keep pt chemical code, and if extubation is not possible will plan for compassionate extubation after trial. GOC curative in the mean time Plan discussed with: Other (spouse) My Orders Orders - MINI BALDWIN MD Procedure Category Date Status Time Communication Order ORDERS 11/14/24 Transmitted 13:59 Abg W/ Co-Ox RT 11/14/24 Logged 14:02 Electrocardigram EKG 11/14/24 Logged 14:06 Chest Xray 1 View XY 11/14/24 Resulted 14:07 Ventilator Orders RT 11/14/24 Transmitted 15:45 Cefepime 2gm/50ml Ns PHA 11/14/24 In Process (Maxipime 2gm/50ml) 22:00 Urine Bacterial MANAN 11/14/24 In Process Culture 15:55 Blood Culture MANAN 11/14/24 In Process 15:58 Abg W/ Co-Ox RT 11/14/24 Logged 18:30 Date of Service: Nov 14, 2024 Billing Provider: MINI BALDWIN MD Common Visit Codes: [id number] CARE 30-74 MIN, [id number] CARE-EACH +30MIN Secondary Visit Codes: [id number] CARE PLAN 30 MINUTES MINI BALDWIN MD Nov 14, 2024 19:50
--- NOTE | 2024-11-14 20:02 | DVHNC2 ---
Intubation Indication: Respiratory Insufficiency Prep: Preoxygenation (Endotracheal Intubation) Pretreated with: Sedation Medicated with: Other (50 mg rocuronium) Intubation Approach: Other ( Endotracheal Intubation) Intubation size: cm (23 cm) Informed consent obtained: Yes Risks/benefits/alt described: Yes UTO Consent CONSENT: Emergent procedure. Implied. The risks and benefits of the procedure and the sedation options and risk were discussed with the patient's healthcare proxy. All questions were answered and informed consent was obtained. Notes Procedure: Endotracheal Intubation INDICATION: Acute respiratory failure, accessory muscle usage Physician: Mini Baldwin MD Time out time: Patient medications and allergies reviewed. Patient identification and proposed procedure were verified prior to the procedure by the physician, and a nurse in the patient's room. The heart rate, respiratory rate, oxygen saturations, blood pressure, adequacy of pulmonary ventilation, and response to care were monitored throughout the procedure. The physical status of the patient was reassessed after the procedure. PROCEDURE SUMMARY: A time out was performed. My hands were washed immediately prior to the procedure. I wore a surgical cap, mask with protective eyewear, gown and gloves throughout the procedure. The patient was placed on a demolition crane operator including continuous pulse oximetry. The patient received 16 mg Etomidate and 50 mg rocuronium for induction. Cricoid pressure was maintained from time induction agent was given to time of cuff balloon inflation. Using a MAC 4 GlideoScope and a size 8.0 endotracheal tube with stylet, the patient was intubated on the 1 attempt. The stylet was removed and cuff balloon was inflated. Appropriate endotracheal tube position was c onfirmed by direct visualization of vocal cord passage, fogging of the tube, CO2 colorimetric indicator and symmetric breath sounds. The tube was secured at 23 cm at the lips. Post intubation chest x-ray is demonstrates the ETT between 2-6 cm above the kassie. CPT Code: 45766 Date of Service: Nov 14, 2024 Billing Provider: MINI BALDWIN MD Common Visit Codes: PROCEDURE ONLY Procedure Codes: [id number] JULI HIGGISN RESIDENT Nov 14, 2024 20:02 MINI BALDWIN MD Nov 14, 2024 20:14
[2024-11-14] MEDS ORDERED: INSULIN LISPRO SC SCH (22:00)
[2024-11-14] MEDS ORDERED: INSULIN LISPRO PROTAMINE SC SCH (22:00)
[2024-11-14] MEDS: CEFEPIME 2GM/50ML NS 50 ML IV SCH (22:17)
[2024-11-14] MEDS: ACCU-CHEK COMFORT CURVE STRIP VI SCH (22:24)
[2024-11-14] MEDS: INSULIN LISPRO (HUMAN) 100 UNITS/ML ML SC SCH (22:33)
[2024-11-15] VITALS (110 sets, daily range): BP systolic 69–189; BP diastolic 41–77; PULSE 51–96; RESP 13–95; TEMP 96.1–98.6; O2SAT 91–100
[2024-11-15 03:57] LABS: Hematocrit 25.9 % (41.0-53.0); Hemoglobin 8.9 g/dL (13.5-17.5); Mean Corpuscular Hemoglobin 28.4 pg (28.0-32.0); Mean Corpuscular Volume 82.8 fL (80.0-100.0); Nucleated Red Blood Cells % 0.1 %
[2024-11-15 04:40] LABS: Alkaline Phosphatase 90 U/L (46-116); Anion Gap 16 (5-15); BUN/Creatinine Ratio 21.1 (10.0-20.0); Carbon Dioxide 23 mmol/L (20-31); Chloride 104 mmol/L (98-107); Magnesium 1.8 mg/dL (1.6-2.6); Potassium 4.0 mmol/L (3.5-5.1); Sodium 143 mmol/L (136-145); Total Protein 6.7 g/dL (5.7-8.2)
[2024-11-15 04:58] LABS: Alanine Aminotransferase < 9 U/L (7-40); Albumin 2.8 g/dL (3.2-4.8); Bilirubin, Total 0.2 mg/dL (0.2-1.0); Blood Urea Nitrogen 32 mg/dL (9-23); Calcium 7.5 mg/dL (8.7-10.4); Glucose 210 mg/dL (74-106)
--- NOTE | 2024-11-15 05:45 | DVH ---
CHEST RADIOGRAPH Indication: Acute hypoxic respiratory failure Technique: 1 view Comparison: XY CHEST XRAY 1 VIEW on DOS: 11/14/24, XY CHEST PORTABLE on DOS: 11/14/24, XY CHEST PORTABL E on DOS: 11/12/24 FINDINGS: Lines and Tubes: Unchanged. Lungs/Pleura: Unchanged. Cardiomediastinum: Unchanged. Other: Unchanged osseous structures. IMPRESSION: 1. No significant change from the previous study. Stable support devices. Persistent bilateral inter stitial and basilar graded opacities.
[2024-11-15] MEDS: IPRATROPIUM BROM 0.5 MG/2.5ML INH SOL NEB SCH (05:53)
[2024-11-15] MEDS: MAGNESIUM SULFATE 1GM/100ML 100 ML IV SCH (05:55)
--- NOTE | 2024-11-15 06:33 | DVH ---
EXAM: CT HEAD WITHOUT CONTRAST INDICATION: R/o stroke TECHNIQUE: CT of the head without intravenous contrast. Radiation Dose : 1. Head: CT Dose: CTDI volume is 56.41 mGy. Dose-length product is 1111.74 mGy*cm The dose indicators for CT are the volume Computed Tomography (CT) Dose Index (CTDIvol) and the Dose Length Product (DLP), and are measured in units of mGy and mGy-cm, respectively. These indicators are not patient dose, but values generated from the CT scanner acquisition factors. The report includes radiation exposure data for exposures received during this examination. COMPARISON: None FINDINGS: There is no evidence of acute intracranial hemorrhage, extra-axial collection, mass effect, midline s hift, herniation or hydrocephalus. Increased prominence of the ventricles, sulci and cisterns consistent with the sequelae of atrophic c ortical volume loss. The conteh-white differentiation is intact. Moderate diffuse confluent periventricular and subcortical white matter hypoattenuation is nonspecifi c but may be related to small vessel ischemic disease. The visualized paranasal sinuses and mastoid air cells are clear. The surrounding soft tissues and osseous structures are unremarkable. Endotracheal tube and enteric catheter. IMPRESSION: 1. No acute intracranial abnormality. 2. Chronic sequelae of microangiopathy and atrophic cortical volume loss. Radiation optimization: All CT scans at this facility use at least one of these dose optimization nanda hniques: automated exposure control mA and/or kV adjustment per patient size (includes targeted exam s where dose is matched to clinical indication) or iterative reconstruction.
[2024-11-15 06:56] LABS: Base Excess -2.9 mmol/L (-2.0-3.0)
--- NOTE | 2024-11-15 07:31 | ECG ---
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
--- NOTE | 2024-11-15 08:01 | ECG ---
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
[2024-11-15] MEDS: methylPREDNISolone SOD SUCC 40 MG/ML VL IV SCH (08:21)
[2024-11-15 09:51] LABS: Hematocrit 26.3 % (41.0-53.0); Hemoglobin 8.6 g/dL (13.5-17.5); Mean Corpuscular Hemoglobin 27.5 pg (28.0-32.0); Mean Corpuscular Volume 84.6 fL (80.0-100.0); Nucleated Red Blood Cells % 0.1 %
[2024-11-15] MEDS ORDERED: ENOXAPARIN SOD 100 MG/1 ML SYRINGE SC SCH (10:00)
[2024-11-15] MEDS: ATORVASTATIN 20 MG TAB PO SCH (10:03)
[2024-11-15 10:07] LABS: INR 1.07 (0.9-1.15); Partial Thromboplastin Time 31.6 SEC (24.5-34.5); Prothrombin Time 11.3 sec (9.3-11.8)
[2024-11-15] MEDS: HEPARIN DRIP/D5W 100UNITS/ML 250 ML IV SCH (10:10)
[2024-11-15] MEDS: HEPARIN SODIUM (PORCINE) 5000 UNITS/ML 1ML VIAL IV ONE (10:10)
[2024-11-15] MEDS: ALBUTEROL SULF 2.5 MG/0.5ML(0.5%) NEB SOLN NEB PRN (10:21)
[2024-11-15] MEDS: CLOPIDOGREL BISULFATE 75 MG TAB PO ONE (10:22)
[2024-11-15] MEDS: PANTOPRAZOLE 40 MG/10 ML VIAL INJ IV ONE (10:25)
--- NOTE | 2024-11-15 10:31 | DVHINCON2 ---
Date Seen: Nov 15, 2024 Referring Physician MD [place] resident Reason for Consultation EKG changes, elevated troponin History of Present Illness This is a 74-year-old male patient who presents to emergency room with chief complaint of back pain, chest pain, and mechanical fall. At the time of assessment, the patient is chemically sedated and mechanically intubated. History obtained from patient's next of kin/, Penelope. Per the patient's , the patient was recently discharged from [place] on 11/11/[address] [facility]. On the day of emergency room arrival, staff members at [facility] found the patient on the floor complaining of back pain and chest pain. Unable to ask patient pertinent chest pain assessment questions such as character, duration, location etc., given that the patient is chemically sedated and mechanically ventilated. The patient was initially admitted to the telemetry unit. Yesterday on 11/14/2024, the patient began having difficulty breathing and a rapid response was called. Subsequently, the patient was endotracheally intubated. Initial twelve lead electrocardiogram done in the emergency room reviewed and reveals a normal sinus rhythm with baseline wander. A twelve lead electrocardiogram done by the bedside nurse this morning reveals significant changes, with the patient in normal sinus rhythm with deep ST segment depression to anterolateral leads. Initial troponin level of 58ng/L, now with significant up trend and peak level at 794ng/L. Significant past medical history includes hypertension, type 2 diabetes mellitus, and possible early-onset dementia. Past Medical History Past medical history reviewed. No other significant than mentioned above. Past Surgical History Tonsillectomy Family History Family history reviewed. Social History Patient has a 25 pack-year history, quit smoking in 2004 Occasional marijuana use No alcohol use per patient's Allergies: Coded Allergies: Aspirin (Verified Allergy, Unknown, 11/12/24) Doxycycline (Verified Allergy, Unknown, 11/12/24) Penicillins (Verified Allergy, Unknown, 10/28/24) Home Meds Reported Medications Cefazolin Sodium (Cefazolin) 2 Gm Inj, 2 GM IV Q8HR, INJ 11/12/24 Enoxaparin Sodium (Enoxaparin Sodium) 80 Mg/0.8 Ml Inj, 40 MG SC DAILY, INJ 11/12/24 Empagliflozin (Jardiance) 25 Mg Tab, 25 MG PO DAILY, TAB 11/12/24 Senna (Senna) 8.6 Mg Tab, 17.2 MG PO DAILY, TAB 11/12/24 Atorvastatin Calcium (ATORVASTATIN CALCIUM) 40 Mg Tab, 1 TAB PO QPM, #90 TAB 3 Refills 11/12/24 Lidocaine (LIDODERM 5% TOPICAL PATCH) 1 Patch Ph, 1 PATCH TOP DAILY, #30 PATCH 1 Refill 11/12/24 Bisacodyl (Dulcolax) 10 Mg Sup, 10 MG RE DAILYP PRN, SUPP 11/12/24 Duloxetine HCl (Duloxetine HCl) 30 Mg Cap, 90 MG PO DAILY, CAP 11/12/24 Hydromorphone Hcl (Dilaudid) 2 Mg Tab, 2 TAB PO QIDP, #120 TAB 11/12/24 Hydromorphone Hcl (Dilaudid) 2 Mg Tab, 1 TAB PO Q4HP PRN, #90 TAB 11/12/24 Pantoprazole Sodium Sesquihydr (Pantoprazole Sodium) 40 Mg Tab, 1 TAB PO BID 11/12/24 Insulin Lispro Protamine & Lis (Humalog Mix 75/25 Kwikpen) 75 Mg/25 Kwp Inj, 15 UNIT SC BID 11/12/24 Trazodone Hcl (Trazodone Hcl) 50 Mg Tab, 0.5 TAB PO QHSP PRN 11/12/24 Carvedilol (Carvedilol) 6.25 Mg Tab, 1 TAB PO BID 11/12/24 Home Meds Home medications reviewed. Current Medications Current Medications Medications (Trade) Dose Ordered Sig/Cira Route PRN Reason Start Time Stop Time Status Last Admin Diagnostic Test (Pha) (Accu-Chek Comfort Curve T) 1 strip PERCODEBLUE PRN Code Medication 11/14/24 12:15 11/15/24 12:14 Albuterol (Ventolin Medneb) 2.5 mg Q4HPRN PRN NEB SHORTNESS OF BREATH 11/14/24 12:30 Ipratropium [place] (Atrovent Medneb) 0.5 mg Q4HR NEB 11/14/24 14:00 11/15/24 05:53 Propofol 100 ml @ 1.845 mls/ hr Q24H IV 11/14/24 12:45 Midazolam HCl 50 ml @ 1 mls/hr Q24H IV 11/14/24 12:45 11/15/24 05:06 Fentanyl Citrate 250 ml @ 2.5 mls/hr Q24H IV 11/14/24 12:45 11/14/24 12:30 Norepinephrine Bitartrate 250 ml @ 3.75 mls/hr Q24H IV 11/14/24 13:00 11/14/24 14:22 Patient Own Medication 15 unit BID SC 11/14/24 22:00 11/14/24 19:34 DC Cefepime HCl 50 ml @ 12.5 mls/hr Q12HR IV 11/14/24 22:00 11/15/24 08:22 Acetaminophen (Tylenol Tablet) 650 mg Q6HP PRN PO PAIN SCALE 1-3 OR TEMP>100.4 11/14/24 17:00 Diagnostic Test (Pha) (Accu-Chek Comfort Curve T) 1 strip Q4HR 11/14/24 22:00 11/15/24 05:53 Insulin Human Lispro (HumaLOG) Q4HR SC 11/14/24 22:00 11/15/24 05:53 Methylprednisolone Sodium Succinate (Solu Medrol) 40 mg DAILY IV 11/15/24 10:00 11/15/24 08:21 Magnesium Sulfate/ Dextrose 100 ml @ 100 mls/hr Q1HR IV 11/15/24 06:00 11/15/24 07:59 DC 11/15/24 07:09 Enoxaparin Sodium (Lovenox) 60 mg Q12HR SC 11/15/24 10:00 11/15/24 08:49 DC Aspirin 162 mg ONCE PO 11/15/24 08:45 11/15/24 23:59 Hold Atorvastatin Calcium (Lipitor) 80 mg HS PO 11/15/24 08:00 Heparin Sodium/ Dextrose 250 ml @ 7 mls/hr Q24H IV 11/15/24 08:15 Review of Systems Constitutional: No symptom reported Ears, Nose, & Throat: No symptom reported Eyes: No symptom reported Neurological: No symptoms reported Pulmonary/Respiratory: Shortness of breath Cardiovascular: Chest pain Gastrointestinal: No symptom reported Genitourinary: No symptom reported Musculoskeletal: Back pain Skin: No symptom reported Psychiatric: No symptom reported Endocrine: No symptom reported Hematologic/Lymphatic: No symptom reported Vital Signs Vital Signs Date Time Temp Pulse Resp B/P (MAP) Pulse Ox O2 Delivery O2 Flow Rate FiO2 11/15/24 09:15 96.1 62 18 127/66 (86) 95 205.0 11/15/24 08:10 40 11/15/24 07:51 Mechanical Ventilator+ 0 Physical Exam General Appearance: Calm, relaxed Pulmonary/Respiratory: Clear, bilateral breaths sounds. Mechanically ventilated Cardiovascular/Chest: Regular rate and rhythm. Peripheral Pulses: 2+ Radial (R). 2+ Radial (L). 2+ Pedal (R). 2+ Pedal (L) Abdominal Exam: Normal bowel sounds. Ankle Exam: Negative ankle edema Lower extremities: Negative lower extremity edema Neuro/Mental Status: Chemically sedated Thoughts/Psych: Deferred Appearance: No acute distress. Skin Exam: Normal inspection. Normal color. Warm and dry. Labs/Diagnostic Data Labs Test 11/15/24 09:17 11/15/24 06:44 11/15/24 05:43 11/15/24 03:30 Range/Units Blood Gas Specimen Type Arterial Blood Gas Sample Site Left radial Blood Gas Patient Temperature 37.0 Arterial Blood Date Drawn [id number] Arterial Blood pH 7.359 7.350-7.450 Arterial Blood Partial Pressure CO2 40.5 35.0-48.0 mmHg Arterial Blood Partial Pressure O2 107.3 83.0-108.0 mmHg Arterial Blood HCO3 22.3 21.0-28.0 mmol/L Arterial Blood Oxygen Saturation 97.0 94.0-98.0 % Arterial Blood Base Excess -2.9 L -2.0-3.0 mmol/L Arterial Blood Oxyhemoglobin 96.0 94.0-98.0 % Arterial Blood Carboxyhemoglobin 0.4 L 0.5-1.5 % Arterial Blood Methemoglobin 0.6 0.0-1.5 % Huan Test Modified Blood Gas Total Hemoglobin 9.70 L 13.5-17.5 g/dL Blood Gas Set Respiration Rate 18.0 Blood Gas Modality Vent - ac FiO2 % 40.0 Blood Gas Tidal Volume 400.0 Blood Gas PEEP or CPAP 5.0 POC Glucose 218 H 70-106 mg/dl Eosinophils (%) (Auto) 0.0 0.0-7.0 % Eosinophils # (Auto) 0 0-0.8 10 ^3/uL Basophils # (Auto) 0 0-0.2 10 ^3/uL Nucleated Red Blood Cells 0.1 % Sodium Level 143 136-145 mmol/L Potassium Level 4.0 3.5-5.1 mmol/L Chloride Level 104 98-107 mmol/L Carbon Dioxide Level 23 20-31 mmol/L Anion Gap 16 H 5-15 Blood Urea Nitrogen 32 H 9-23 mg/dL Creatinine 1.52 H 0.700-1.30 mg/dL Glomerular Filtration Rate Calc 48 >90 mL/min BUN/Creatinine Ratio 21.1 H 10.0-20.0 Serum Glucose 210 H 74-106 mg/dL Lactic Acid Level 0.7 0.4-2.0 mmol/L Calcium Level 7.5 L 8.7-10.4 mg/dL Phosphorus Level 5.7 H 2.4-5.1 mg/dL Magnesium Level 1.8 1.6-2.6 mg/dL Total Bilirubin 0.2 0.2-1.0 mg/dL Aspartate Amino Transferase (AST) 24 13-40 U/L Alanine Aminotransferase (ALT) < 9 7-40 U/L Alkaline Phosphatase 90 46-116 U/L Total Protein 6.7 5.7-8.2 g/dL Albumin 2.8 L 3.2-4.8 g/dL Test 11/14/24 14:55 11/14/24 12:20 11/14/24 12:18 Range/Units Urine Color Light-yellow Yellow Urine Clarity Clear Clear Urine pH 6.0 5.0-9.0 Urine Specific Nathalie 1.016 1.001-1.035 Urine Protein 2+ H Negative Urine Ketones 1+ H Negative Urine Blood 3+ H Negative /uL Urine Nitrite Negative Negative Urine Bilirubin Negative Negative Urine Urobilinogen Normal Negative mg/dL Urine Leukocyte Esterase Negative Negative /uL Urine RBC 174 0 - 3 /hpf Urine Microscopic WBC 6 H 0-3 /HPF Urine Squamous Epithelial Cells None seen <5 /hpf Urine Bacteria None seen None Seen /hpf Urine Mucus Few None Seen Urine Glucose 4+ H Normal mg/dL Urine Opiates Screen Neg NEGATIVE Urine Fentanyl Screen Neg NEGATIVE Urine Barbiturates Screen Neg NEGATIVE Urine Phencyclidine Screen Neg NEGATIVE Urine Amphetamines Screen Neg NEGATIVE Urine Benzodiazepines Screen Neg NEGATIVE Urine Cocaine Screen Neg NEGATIVE Urine Cannabinoids Screen Neg NEGATIVE D-Dimer, Quantitative 3.13 H 0.0-0.49 mg/L FEU Blood Gas Liter Flow 15.00 Blood Gas Critical Value Read Back Yes Blood Gas Notified Whom Dr. dejuan bryson Blood Gas Notified Time [id number] Blood Gas Notified By Assessment NSTEMI, likely type 1 ?Wellens syndrome Rule out structural heart disease Hypertension Pneumonia Type 2 diabetes mellitus Acute kidney injury History of tobacco use Possible early-onset dementia Plan/Recommendation We will continue with the following plan/recommendations (Dr. Kulkarni): Case discussed with . We will proceed with obtaining a transthoracic echocardiogram to evaluate cardiac function and wall motion. Given significant up-trend in troponin level and significant EKG changes (Wellens syndrome pattern), highly suspect NSTEMI type 1. Patient was initiated on a heparin bolus followed by heparin drip per [facility] protocol. The patient is allergic to aspirin, we will start Plavix therapy and statin therapy. Had a long discussion with the patient's , Penelope, regarding plans for coronary angiogram with left heart catheterization. Per patient's , she refuses any invasive cardiac workup at this time. Per the patient's , the patient has previously discussed being "DNR" and does not wish for any invasive procedures. The patient's states that she does not want compressions, ACLS medications, or defibrillation in the event of cardiac arrest. The patient's is adamantly refusing coronary angiogram for the patient at this time. We will continue with medical management per family wishes. Continue with close cardiac surveillance. Thank you for allowing us to care for this patient. Please call with any questions or concerns. Critical care time spent: 44 minutes This medical document was created using an electronic medical record system with voice recognition software and computerized dictation system. Although this document has been carefully reviewed, there might still be some phonetic and typographical errors. Occasional wrong-word or ``sound-alike substitutions may have occurred due to the inherent limitations of voice recognition software. These areas are purely typographical due to imperfections of the software programs and do not reflect any compromise in the patient's medical care. Please read the chart carefully and recognize, using context, where these substitutions have occurred. Plan discussed with: Spouse, Other (Bedside RN) NYHA Physical activity limitations: NA Date of Service: Nov 15, 2024 Billing Provider: BARD LAMB Cardiology Common Codes: 59520-ZLCZHKS INP/OBS CARE (High) Cardiology Consultation Codes: 59994-[id number] CONSULT <45MIN BRAD LAMB LABORATORY SUPERVISOR Nov 15, 2024 10:31
[2024-11-15 12:09] LABS: Cholesterol 126.0 mg/dL (< 200)
[2024-11-15 12:14] LABS: Triglycerides 151.0 mg/dL (< 150)
[2024-11-15 12:15] LABS: HDL Cholesterol 26.0 mg/dL (40-59); Magnesium 2.7 mg/dL (1.6-2.6)
[2024-11-15] MEDS ORDERED: FUROSEMIDE 20 MG/2 ML VIAL IV ONE (13:45)
[2024-11-15] MEDS: FUROSEMIDE 100 MG/10ML VIAL IV ONE (14:06)
--- NOTE | 2024-11-15 15:58 | DVHPNRES ---
Progress Note Date Seen: Nov 15, 2024 Resident Creating Document: JULI HIGGINS RESIDENT Has the PT tested + for MRSA If YES, has PT been informed?: No Medical Necessity Reason Pt with a Central, PICC or Fol: Yes The following are medically ne: Central Line, Balderrama Catheter Subjective Review of Systems * 74-year-old male with history of type 2 diabetes mellitus, hypertension, dementia, chronic back pain, GERD, hiatal hernia, and diverticulosis, admitted 11/12 for back pain, chest pain, weakness, and falls. * Initially on telemetry, then rapid response called on 11/14 for acute respiratory distress with hypoxia; patient was intubated and transferred to ICU. * Right IJ central line placed; started on norepinephrine for hypotension. * On mechanical ventilation (ACVC 400/20/100%/PEEP 5). * Currently intubated, sedated on propofol and midazolam, on fentanyl drip for analgesia, norepinephrine (low-dose) for MAP >65. * Heparin drip started for NSTEMI (likely Type I) per cardiology; to transition to therapeutic enoxaparin when renal function improves. * confirmed DNRchemical code only; no compressions, defibrillation, or invasive cardiac procedures per family wishes. * Troponin trending down (598 ? 593 ? 437); BNP elevated (1233 pg/mL). * ABG (11/15): pH 7.359, pCO? 40.5, pO 107.3, HCO? 22.3, O sat 97.9% (on FiO? 40%). * WBC improved (14.1 ? 5.6), Hgb 8.9 ( from 10.7), Platelets 474 (?). * Renal function worsening: Cr 1.52 ( from 0.97), GFR 48. * Lactate 2.7, Phos 5.7, Ca 7.5, Glucose 218. * CXR: Persistent bilateral interstitial infiltrates. * POCUS: Mildly decreased contractility, septal hypokinesis, IVC dilation. * Urine output ~0.5 mL/kg/hr, net negative -500 mL over last 24h. Review of Systems (limited due to sedation) * Constitutional: Intubated, sedated. * Respiratory: Mechanically ventilated, bilateral coarse breath sounds. * Cardiovascular: Tachycardic, on vasopressor support. * GI: Abdomen soft, non-distended. * : Balderrama in place, adequate output. * Extremities: Trace bilateral LE edema. * Neuro: No purposeful movement, RASS -3. Objective vital signs Vital Sign Date Time Temp Pulse Resp B/P (MAP) Pulse Ox O2 Delivery O2 Flow Rate FiO2 11/15/24 15:44 90/45 11/15/24 15:31 90 11/15/24 13:51 30 11/15/24 13:51 95 97 Mechanical Ventilator+ 11/15/24 13:45 98.6 209.5 11/15/24 07:51 0 Total Intake and Output 11/14/24 11/14/24 11/15/24 15:00 23:00 07:00 Intake Total 37.25 ml 144.25 ml 274.50 ml Output Total 400 ml 450 ml Balance 37.25 ml -255.75 ml -175.50 ml medications Current Medications Medications Dose Ordered Sig/Cira Route Start Time Stop Time Status Last Admin Dose Admin Dextrose 50 ml UD PRN IV 11/12/24 13:00 Bisacodyl 10 mg DAILYP PRN MO 11/12/24 13:15 Enoxaparin Sodium 40 mg DAILY SC 11/13/24 10:00 UNV Patient Own Medication 1 tab QPM PO 11/12/24 18:00 UNV Patient Own Medication 1 tab BID PO 11/12/24 22:00 UNV Patient Own Medication 2 gm Q8HR IV 11/12/24 14:00 UNV Albuterol 2.5 mg Q4HPRN PRN NEB 11/14/24 12:30 11/15/24 13:41 2.5 MG Ipratropium [place] 0.5 mg Q4HR NEB 11/14/24 14:00 11/15/24 13:41 0.5 MG Propofol 100 ml @ 1.845 mls/ hr Q24H IV 11/14/24 12:45 Midazolam HCl 50 ml @ 1 mls/hr Q24H IV 11/14/24 12:45 11/15/24 05:06 4 MLS/HR Fentanyl Citrate 250 ml @ 2.5 mls/hr Q24H IV 11/14/24 12:45 11/15/24 15:27 10 MLS/HR Norepinephrine Bitartrate 250 ml @ 3.75 mls/hr Q24H IV 11/14/24 13:00 11/14/24 14:22 3.75 MLS/HR Cefepime HCl 50 ml @ 12.5 mls/hr Q12HR IV 11/14/24 22:00 11/15/24 08:22 12.5 MLS/HR Acetaminophen 650 mg Q6HP PRN PO 11/14/24 17:00 Diagnostic Test (Pha) 1 strip Q4HR 11/14/24 22:00 11/15/24 14:06 1 STRIP Insulin Human Lispro Q4HR SC 11/14/24 22:00 11/15/24 14:11 3 UNITS Methylprednisolone Sodium Succinate 40 mg DAILY IV 11/15/24 10:00 11/15/24 08:21 40 MG Aspirin 162 mg ONCE PO 11/15/24 08:45 11/15/24 23:59 Hold Atorvastatin Calcium 80 mg HS PO 11/15/24 08:00 11/15/24 10:03 80 MG Heparin Sodium/ Dextrose 250 ml @ 7 mls/hr Q24H IV 11/15/24 08:15 11/15/24 10:10 7 MLS/HR Clopidogrel Bisulfate 75 mg DAILY PO 11/16/24 10:00 Pantoprazole Sodium 40 mg DAILY IV 11/16/24 10:00 Examination General: Intubated, sedated, critically ill. HEENT: Pupils equal, reactive; ETT and OGT in place. Neck: Right IJ central line present, no bleeding. CVS: S1/S2 tachycardic, no murmur; MAP maintained >65 on low-dose norepinephrine. Respiratory: Bilateral mechanical breath sounds; no wheezes or rales. Abdomen: Soft, non-tender, no guarding. Extremities: Trace pedal edema, pulses palpable. Neuro: Sedated, RASS -3; GCS 3T. Skin: No rash, no decubitus. laboratory and microbiology Laboratory Tests 11/15/24 09:17 11/15/24 03:30 Test 11/15/24 03:30 Range/Units Serum Glucose 210 H 74-106 mg/dL Microbiology Date/Time Source Procedure Growth Status 11/14/24 14:55 Nose MRSA Screen - Final Complete 11/14/24 14:55 Urine - Catheterized Urine Culture - Preliminary Resulted Problem List/Assessment/Plan Problem List/Assessment/Plan Assessment 1. Acute Hypoxic Respiratory Failure on mechanical ventilation secondary to pneumonia AND Super imposed pulmonary edema. 2. Septic Shock likely secondary to MSSA bacteremia/osteomyelitis; on norepinephrine and broad-spectrum antibiotics (Cefepime). 3. NSTEMI, likely Type I significant troponin elevation, ischemic EKG changes, per cardiology managed medically; DNR with no invasive interventions. 4. Acute Kidney Injury (Stage 2) likely multifactorial (sepsis, contrast, low perfusion); GFR 48, Cr 1.52./VMN 5. Metabolic Encephalopathy secondary to sepsis and sedation. 6. Osteomyelitis (MSSA) prior bone biopsy and cultures positive, on cefepime. 7. Type 2 Diabetes Mellitus on insulin sliding scale. 8. Hypertension on hold due to current shock. 9. Dementia baseline per . 10. Hypocalcemia and Hyperphosphatemia due to EREN. 11. Malnutrition / weight loss NPO, plan for tube feeding initiation once hemodynamically stable. 12. DNR chemical code only. System-[place] Plan Neurology * Continue propofol and midazolam for sedation (RASS -2 to -3). * Reassess daily for sedation holiday and readiness to wean. * Avoid oversedation to facilitate neuro checks. Cardiovascular * Continue norepinephrine titrated to maintain MAP >65 mmHg. * Monitor lactate trend. * Heparin drip per ACS protocol; convert to therapeutic enoxaparin if renal function improves. * Continue atorvastatin 80 mg PO daily, clopidogrel 75 mg daily. * Monitor QTc, avoid QT-prolonging agents (propofol, azithromycin with caution). * Strict I&O, daily weights. Respiratory * AC/VC ventilation: TV 400 mL, FiO? 40%, PEEP 5, rate 18. * Continue ventilator care bundle: elevate HOB, oral care, DVT/GI prophylaxis. * Albuterol + Ipratropium nebs Q4H. * ABG in AM. * Wean FiO? as tolerated to maintain SpO? >92%. * Daily spontaneous breathing trial when stable. Infectious Disease * Continue Cefepime IV q12h (MSSA coverage). * Monitor cultures (blood, sputum, urine). Renal / Fluids / Electrolytes * Maintain MAP >65 to support renal perfusion. Adminstered Lasix 80 IV once today. * Avoid nephrotoxins (NSAIDs, contrast). * Strict I&O; current urine output adequate (850 mL/24h). * Replace electrolytes (Mg >2, K >4, Ca as needed). * Recheck BMP q8h. GI / Nutrition * NPO for now; initiate enteral nutrition via NGT once pressors <0.05 ?g/kg/min. * Continue Pantoprazole IV 40 mg daily for stress ulcer prophylaxis. * Bowel regimen: Senna and Bisacodyl PRN. Endocrine * Continue insulin sliding scale; target glucose 570925 mg/dL. * Hold oral hypoglycemics. * Recheck HbA1c when stable. Hematology * Monitor Hgb/Hct daily (8.9 g/dL today). * Transfuse if Hgb <7.0 or symptomatic anemia. * Continue Heparin drip (to be transitioned to Lovenox). Musculoskeletal / ID * Osteomyelitis due to MSSA continue IV antibiotics per ID. * Pain managed with Fentanyl infusion; avoid NSAIDs due to renal status. * Monitor inflammatory markers. Prophylaxis * DVT: Heparin drip (therapeutic). * GI: Pantoprazole 40 mg IV daily. * Pressure Injury: Turn q2h, air mattress. * Aspiration: Elevate HOB >30. Condition / Prognosis * Critical, guarded prognosis. * Multi-organ involvement (cardiac ischemia, septic shock, EREN, respiratory failure). * Continue aggressive supportive care per familys wishes (medical management only). CODE STATUS: CHEMICAL CODE Case discussed in detail with the attending physician, including the clinical presentation, diagnostic workup, and comprehensive management plan. The patients family was updated and expressed understanding of his condition and treatment approach. Critical Care Time Spent: >45 minutes Plan discussed with: Spouse My Orders My Orders Orders - JULI HIGGINS RESIDENT Procedure Category Date Status Time Strict I & O CHAMP 11/14/24 In Process 16:53 Acetaminophen Tablet PHA 11/14/24 In Process (Tylenol Tablet) 17:00 Npo Except For CHAMP 11/14/24 In Process Medications 16:55 Npo (Nothing By DIET 11/14/24 Transmitted Mouth) Diet Dinner Abg W/ Co-Ox RT 11/15/24 Logged 04:00 Chest Xray 1 View XY 11/15/24 Resulted 04:00 Aspirin Tablet PHA 11/15/24 In Process 08:45 Atorvastatin (Lipitor) PHA 11/15/24 In Process 08:00 Platelet Monitoring CHAMP 11/15/24 In Process 08:02 Heparin Per CHAMP 11/15/24 In Process Standardized Proce 08:02 Discontinue All Im CHAMP 11/15/24 In Process Injections 08:02 Heparin Drip/D5w PHA 11/15/24 In Process 100units/Ml 08:15 Stat Ekg For Chest CHAMP 11/15/24 In Process Pain 08:02 * Cardiology Consult CONS 11/15/24 Transmitted 08:02 Pharmacy [facility] 11/15/24 In Process Clarification: 23:59 Complete Blood Count LAB 11/16/24 Verified 04:00 PTPTT LAB 11/15/24 Logged 16:00 Obtain Mr From Other ORDERS 11/15/24 Transmitted Facility 13:30 [facility] LAB 11/16/24 Verified Metabolic Panel 04:00 Chest Xray 1 View XY 11/16/24 Logged 04:00 Abg W/ Co-Ox RT 11/16/24 Logged 04:00 Code Status CODE 11/15/24 Transmitted 13:49 Date of Service: Nov 15, 2024 Billing Provider: MINI BALDWIN MD Common Visit Codes: [id number] CARE 30-74 MIN Secondary Visit Codes: [id number] CARE PLAN 30 MINUTES ( brought advanced directive, explained and discuss treatment option, 30 mins time spent, medical management, attempt to extubate in upcoming days but if unsuccessful or prognosis is grim will proceed with compasionate extubation) JULI HIGGINS RESIDENT Nov 15, 2024 15:58 MINI BALDWIN MD Nov 15, 2024 19:16
[2024-11-15 17:19] LABS: INR 1.07 (0.9-1.15); Partial Thromboplastin Time 54.1 SEC (24.5-34.5); Prothrombin Time 11.3 sec (9.3-11.8)
--- NOTE | 2024-11-15 20:26 | DVHINCON2 ---
Date Seen: Nov 15, 2024 Referring Physician MD [place] resident Reason for Consultation EKG changes, elevated troponin History of Present Illness This is a 74-year-old male with a past medical history of hypertension, type 2 diabetes mellitus, and possible early-onset dementia who presents to emergency room with a complaint of back pain, chest pain, and mechanical fall. At the time of assessment, the patient is chemically sedated and mechanically intubated. History obtained from patient's next of kin/, Penelope. Per the patient's , the patient was recently discharged from [facility] on 11/11/2024 and sent to [facility]. On the day of emergency room arrival, staff members at [facility] found the patient on the floor complaining of back pain and chest pain. Unable to ask patient pertinent chest pain assessment questions such as character, duration, location etc., given that the patient is chemically sedated and mechanically ventilated. The patient was initially to the telemetry unit. Yesterday on 11/14/2024, the patient began having difficulty breathing and a rapid response was called Subsequently, the patient was endotracheally intubated. Initial twelve lead electrocardiogram done in the emergency room reviewed and reveals a normal sinus rhythm with baseline wander. A twelve lead electrocardiogram done by the bedside nurse this morning reveals significant changes, with the patient in normal sinus rhythm with deep ST segment depression to anterolateral leads. Initial troponin level of 58ng/L, now with significant up trend and peak level at 794ng/L. Chest x-ray showed increased interstital prominence.Patient was admitted to the hospital. I am asked to consult on this patient. Past Medical History Past medical history reviewed. No other significant than mentioned above. Past Surgical History Tonsillectomy Allergies: Coded Allergies: Aspirin (Verified Allergy, Unknown, 11/12/24) Doxycycline (Verified Allergy, Unknown, 11/12/24) Penicillins (Verified Allergy, Unknown, 10/28/24) Home Meds Reported Medications Cefazolin Sodium (Cefazolin) 2 Gm Inj, 2 GM IV Q8HR, INJ 11/12/24 Enoxaparin Sodium (Enoxaparin Sodium) 80 Mg/0.8 Ml Inj, 40 MG SC DAILY, INJ 11/12/24 Empagliflozin (Jardiance) 25 Mg Tab, 25 MG PO DAILY, TAB 11/12/24 Senna (Senna) 8.6 Mg Tab, 17.2 MG PO DAILY, TAB 11/12/24 Atorvastatin Calcium (ATORVASTATIN CALCIUM) 40 Mg Tab, 1 TAB PO QPM, #90 TAB 3 Refills 11/12/24 Lidocaine (LIDODERM 5% TOPICAL PATCH) 1 Patch Ph, 1 PATCH TOP DAILY, #30 PATCH 1 Refill 11/12/24 Bisacodyl (Dulcolax) 10 Mg Sup, 10 MG RE DAILYP PRN, SUPP 11/12/24 Duloxetine HCl (Duloxetine HCl) 30 Mg Cap, 90 MG PO DAILY, CAP 11/12/24 Hydromorphone Hcl (Dilaudid) 2 Mg Tab, 2 TAB PO QIDP, #120 TAB 11/12/24 Hydromorphone Hcl (Dilaudid) 2 Mg Tab, 1 TAB PO Q4HP PRN, #90 TAB 11/12/24 Pantoprazole Sodium Sesquihydr (Pantoprazole Sodium) 40 Mg Tab, 1 TAB PO BID 11/12/24 Insulin Lispro Protamine & Lis (Humalog Mix 75/25 Kwikpen) 75 Mg/25 Kwp Inj, 15 UNIT SC BID 11/12/24 Trazodone Hcl (Trazodone Hcl) 50 Mg Tab, 0.5 TAB PO QHSP PRN 11/12/24 Carvedilol (Carvedilol) 6.25 Mg Tab, 1 TAB PO BID 11/12/24 Current Medications Current Medications Medications (Trade) Dose Ordered Sig/Cira Route PRN Reason Start Time Stop Time Status Last Admin Ipratropium [place] (Atrovent Medneb) 0.5 mg Q4HR NEB 11/14/24 14:00 11/15/24 10:21 Norepinephrine Bitartrate 250 ml @ 3.75 mls/hr Q24H IV 11/14/24 13:00 11/14/24 14:22 Patient Own Medication 15 unit BID SC 11/14/24 22:00 11/14/24 19:34 DC Cefepime HCl 50 ml @ 12.5 mls/hr Q12HR IV 11/14/24 22:00 11/15/24 08:22 Acetaminophen (Tylenol Tablet) 650 mg Q6HP PRN PO PAIN SCALE 1-3 OR TEMP>100.4 11/14/24 17:00 Diagnostic Test (Pha) (Accu-Chek Comfort Curve T) 1 strip Q4HR 11/14/24 22:00 11/15/24 10:06 Insulin Human Lispro (HumaLOG) Q4HR SC 11/14/24 22:00 11/15/24 10:20 Methylprednisolone Sodium Succinate (Solu Medrol) 40 mg DAILY IV 11/15/24 10:00 11/15/24 08:21 Magnesium Sulfate/ Dextrose 100 ml @ 100 mls/hr Q1HR IV 11/15/24 06:00 11/15/24 07:59 DC 11/15/24 07:09 Enoxaparin Sodium (Lovenox) 60 mg Q12HR SC 11/15/24 10:00 11/15/24 08:49 DC Aspirin 162 mg ONCE PO 11/15/24 08:45 11/15/24 23:59 Hold Atorvastatin Calcium (Lipitor) 80 mg HS PO 11/15/24 08:00 11/15/24 10:03 Heparin Sodium/ Dextrose 250 ml @ 7 mls/hr Q24H IV 11/15/24 08:15 11/15/24 10:10 Clopidogrel Bisulfate (Plavix) 75 mg DAILY PO 11/16/24 10:00 Pantoprazole Sodium (Protonix) 40 mg DAILY IV 11/16/24 10:00 Review of Systems Constitutional: No symptom reported Ears, Nose, & Throat: No symptom reported Eyes: No symptom reported Neurological: No symptoms reported Pulmonary/Respiratory: Shortness of breath Cardiovascular: Chest pain Gastrointestinal: No symptom reported Genitourinary: No symptom reported Musculoskeletal: Back pain Skin: No symptom reported Psychiatric: No symptom reported Endocrine: No symptom reported Hematologic/Lymphatic: No symptom reported Vital Signs Vital Signs Date Time Temp Pulse Resp B/P (MAP) Pulse Ox O2 Delivery O2 Flow Rate FiO2 11/15/24 12:00 98.2 81 18 120/55 (76) 96 208.8 11/15/24 12:00 Mechanical Ventilator+ 40 40 11/15/24 07:51 0 Physical Exam GENERAL: Intubated on ventilator. EYES: PERRL, EOMI. Anicteric. HENT: Moist mucous membranes. LUNGS: Decreased breath sounds. CARDIOVASCULAR: Regular rate and rhythm. ABDOMEN: Soft, nontender and nondistended. EXTREMITIES: No edema. SKIN: Warm, dry. Labs/Diagnostic Data Labs Test 11/15/24 10:45 11/15/24 10:16 11/15/24 09:17 11/15/24 06:44 Range/Units Troponin I High Sensitivity 593 *H </=54 ng/L POC Glucose 247 H 70-106 mg/dl White Blood Count 7.5 # 4.4-10.8 10^3/uL Red Blood Count 3.11 L 4.5-5.90 10^6/uL Hemoglobin 8.6 L 13.5-17.5 g/dL Hematocrit 26.3 L 41.0-53.0 % Mean Corpuscular Volume 84.6 80.0-100.0 fL Mean Corpuscular Hemoglobin 27.5 L 28.0-32.0 pg Mean Corpuscular Hemoglobin Concent 32.6 32.0-36.0 g/dL Red Cell Distribution Width 15.0 H 11.8-14.3 % Platelet Count 445 140-450 10^3/uL Mean Platelet Volume 7.4 6.9-10.8 fL Neutrophils (%) (Auto) 83.8 H 37.0-80.0 % Lymphocytes (%) (Auto) 12.0 10.0-50.0 % Monocytes (%) (Auto) 4.0 0.0-12.0 % Eosinophils (%) (Auto) 0.0 0.0-7.0 % Basophils (%) (Auto) 0.2 0.0-2.0 % Neutrophils # (Auto) 6.3 1.6-8.6 10 ^3/uL Lymphocytes # (Auto) 0.9 0.4-5.4 10 ^3/uL Monocytes # (Auto) 0.3 0-1.3 10 ^3/uL Eosinophils # (Auto) 0 0-0.8 10 ^3/uL Basophils # (Auto) 0 0-0.2 10 ^3/uL Nucleated Red Blood Cells 0.1 % Prothrombin Time 11.3 9.3-11.8 sec Prothrombin Time INR 1.07 0.9-1.15 Activated Partial Thromboplast Time 31.6 24.5-34.5 SEC Hemoglobin A1c 8.3 H <5.7 % A1C Magnesium Level 2.7 H 1.6-2.6 mg/dL B-Type Natriuretic Peptide 1233.51 0-100 pg/mL Triglycerides Level 151 H < 150 mg/dL Cholesterol Level 126 < 200 mg/dL LDL Cholesterol 73 < 100 mg/dL HDL Cholesterol 26 L 40-59 mg/dL Thyroid Stimulating Hormone (TSH) 1.78 0.55-4.78 uIU/mL Blood Gas Specimen Type Arterial Blood Gas Sample Site Left radial Blood Gas Patient Temperature 37.0 Arterial Blood Date Drawn [id number] Arterial Blood pH 7.359 7.350-7.450 Arterial Blood Partial Pressure CO2 40.5 35.0-48.0 mmHg Arterial Blood Partial Pressure O2 107.3 83.0-108.0 mmHg Arterial Blood HCO3 22.3 21.0-28.0 mmol/L Arterial Blood Oxygen Saturation 97.0 94.0-98.0 % Arterial Blood Base Excess -2.9 L -2.0-3.0 mmol/L Arterial Blood Oxyhemoglobin 96.0 94.0-98.0 % Arterial Blood Carboxyhemoglobin 0.4 L 0.5-1.5 % Arterial Blood Methemoglobin 0.6 0.0-1.5 % Huan Test Modified Blood Gas Total Hemoglobin 9.70 L 13.5-17.5 g/dL Blood Gas Set Respiration Rate 18.0 Blood Gas Modality Vent - ac FiO2 % 40.0 Blood Gas Tidal Volume 400.0 Blood Gas PEEP or CPAP 5.0 Test 11/15/24 03:30 11/14/24 14:55 11/14/24 12:20 11/14/24 12:18 Range/Units Sodium Level 143 136-145 mmol/L Potassium Level 4.0 3.5-5.1 mmol/L Chloride Level 104 98-107 mmol/L Carbon Dioxide Level 23 20-31 mmol/L Anion Gap 16 H 5-15 Blood Urea Nitrogen 32 H 9-23 mg/dL Creatinine 1.52 H 0.700-1.30 mg/dL Glomerular Filtration Rate Calc 48 >90 mL/min BUN/Creatinine Ratio 21.1 H 10.0-20.0 Serum Glucose 210 H 74-106 mg/dL Lactic Acid Level 0.7 0.4-2.0 mmol/L Calcium Level 7.5 L 8.7-10.4 mg/dL Phosphorus Level 5.7 H 2.4-5.1 mg/dL Total Bilirubin 0.2 0.2-1.0 mg/dL Aspartate Amino Transferase (AST) 24 13-40 U/L Alanine Aminotransferase (ALT) < 9 7-40 U/L Alkaline Phosphatase 90 46-116 U/L Total Protein 6.7 5.7-8.2 g/dL Albumin 2.8 L 3.2-4.8 g/dL Urine Color Light-yellow Yellow Urine Clarity Clear Clear Urine pH 6.0 5.0-9.0 Urine Specific [place] 1.016 1.001-1.035 Urine Protein 2+ H Negative Urine Ketones 1+ H Negative Urine Blood 3+ H Negative /uL Urine Nitrite Negative Negative Urine Bilirubin Negative Negative Urine Urobilinogen Normal Negative mg/dL Urine Leukocyte Esterase Negative Negative /uL Urine RBC 174 0 - 3 /hpf Urine Microscopic WBC 6 H 0-3 /HPF Urine Squamous Epithelial Cells None seen <5 /hpf Urine Bacteria None seen None Seen /hpf Urine Mucus Few None Seen Urine Glucose 4+ H Normal mg/dL Urine Opiates Screen Neg NEGATIVE Urine Fentanyl Screen Neg NEGATIVE Urine Barbiturates Screen Neg NEGATIVE Urine Phencyclidine Screen Neg NEGATIVE Urine Amphetamines Screen Neg NEGATIVE Urine Benzodiazepines Screen Neg NEGATIVE Urine Cocaine Screen Neg NEGATIVE Urine Cannabinoids Screen Neg NEGATIVE D-Dimer, Quantitative 3.13 H 0.0-0.49 mg/L FEU Blood Gas Liter Flow 15.00 Blood Gas Critical Value Read Back Yes Blood Gas Notified Whom Dr. dejuan bryson Blood Gas Notified Time [id number] Blood Gas Notified By Microbiology Date/Time Source Procedure Growth Status 11/14/24 14:55 Urine - Catheterized Urine Culture - Preliminary Resulted Assessment NSTEMI, likely type 1. ?Wellens syndrome. Rule out structural heart disease. Hypertension. Pneumonia. Type 2 diabetes mellitus. Acute kidney injury. History of tobacco use. Possible early-onset dementia. Plan/Recommendation I agree with your ongoing assessment and care of plan. Patient has been seen by Yareli Church NP on my behalf, her and I discussed the plan with the patient. Case discussed with me. We will proceed with obtaining a transthoracic echocardiogram to evaluate cardiac function and wall motion. Given significant up-trend in troponin level and significant EKG changes (We llens syndrome pattern), highly suspect NSTEMI type 1. Patient was initiated on a heparin bolus followed by heparin drip per ACS protocol. The patient is allergic to aspirin, we will start Plavix therapy and statin therapy. Had a long discussion with the patient's , Penelope, regarding plans for coronary angiogram with left heart catheterization. Per patient's , she refuses any invasive cardiac workup at this time. Per the patient's , the patient has previously discussed being "DNR" and d oes not wish for any invasive procedures. The patient's states that she does not want compressions, ACLS medications, or defibrillation in the event of cardiac arrest. The patient's is adamantly refusing coronary angiogram for the patient at this time. We will continue with medical management per family wishes. Continue with close cardiac surveillance. Additional plan as per the hospital course. Plan discussed with: Other NYHA Physical activity limitations: NA Date of Service: Nov 15, 2024 Billing Provider: ANJU ZAMORA MD Cardiology Common Codes: [id number] INP/OBS CARE (High), [id number] CA RE 30-74 MIN, [id number] CARE-EACH +30MIN ANJU ZAMORA MD Nov 15, 2024 12:55
[2024-11-15 23:17] LABS: INR 1.09 (0.9-1.15); Prothrombin Time 11.5 sec (9.3-11.8)
[2024-11-15 23:20] LABS: Partial Thromboplastin Time 71.6 SEC (24.5-34.5)
[2024-11-16] VITALS (104 sets, daily range): BP systolic 82–148; BP diastolic 39–83; PULSE 48–102; RESP 12–22; TEMP 96.5–98.1; O2SAT 88–100
[2024-11-16 04:03] LABS: Hematocrit 25.6 % (41.0-53.0); Hemoglobin 8.5 g/dL (13.5-17.5); Mean Corpuscular Hemoglobin 27.9 pg (28.0-32.0); Mean Corpuscular Volume 83.9 fL (80.0-100.0); Nucleated Red Blood Cells % 0.0 %
[2024-11-16 04:23] LABS: Alkaline Phosphatase 80 U/L (46-116); Anion Gap 14 (5-15); BUN/Creatinine Ratio 24.2 (10.0-20.0); Carbon Dioxide 25 mmol/L (20-31); Chloride 105 mmol/L (98-107); Potassium 3.8 mmol/L (3.5-5.1); Sodium 144 mmol/L (136-145); Total Protein 6.7 g/dL (5.7-8.2)
[2024-11-16 04:26] LABS: Alanine Aminotransferase < 9 U/L (7-40); Albumin 2.9 g/dL (3.2-4.8); Bilirubin, Total 0.3 mg/dL (0.2-1.0); Blood Urea Nitrogen 47 mg/dL (9-23); Calcium 7.5 mg/dL (8.7-10.4); Glucose 226 mg/dL (74-106); Magnesium 2.6 mg/dL (1.6-2.6)
[2024-11-16 04:59] LABS: INR 1.12 (0.9-1.15); Prothrombin Time 11.7 sec (9.3-11.8)
[2024-11-16 05:22] LABS: Partial Thromboplastin Time 79.7 SEC (24.5-34.5)
[2024-11-16] MEDS: HEPARIN DRIP/D5W 100UNITS/ML 250 ML IV SCH ×3 (05:30→21:00)
[2024-11-16 06:55] LABS: Base Excess -2.4 mmol/L (-2.0-3.0)
--- NOTE | 2024-11-16 08:24 | DVHPNRES ---
Progress Note Date Seen: Nov 16, 2024 Resident Creating Document: EMELI GUTIERREZ RESIDENT Has the PT tested + for MRSA If YES, has PT been informed?: No Medical Necessity Reason Pt with a Central, PICC or Fol: Yes The following are medically ne: Central Line, Balderrama Catheter Subjective Review of Systems Patient seen and examined at bedside Currently intubated and sedated Patient had few episodes of bradycardia, sedation was decreased, bradycardia improved. On sedation with fentanyl, Levophed at 2 mcg, heparin drip. Restarted Versed for sedation On ventilator with setting respiratory rate 18, tidal volume 400, FiO2 30%, peep of five. ABG on 11/16/2024 reviewed: PH 7.382, pCO2 38.6, HC03 22.4, base excess-2.4. No change on ventilator setting. Unknown time of bowel movement, initiate tube feeding Given uncontrolled diabetes, we will start with Glucerna KUB possible ileus, no signs of obstruction. Objective vital signs Vital Sign Date Time Temp Pulse Resp B/P (MAP) Pulse Ox O2 Delivery O2 Flow Rate FiO2 11/16/24 06:30 78 16 138/59 (85) 97 11/16/24 06:00 Mechanical Ventilator+ 30 30 11/16/24 04:00 96.5 96.5 11/15/24 20:00 0 Total Intake and Output 11/15/24 11/15/24 11/16/24 15:00 23:00 07:00 Intake Total 203.50 ml 217.00 ml 184.50 ml Output Total 250 ml 450 ml Balance 203.50 ml -33.00 ml -265.50 ml medications Current Medications Medications Dose Ordered Sig/Cira Route Start Time Stop Time Status Last Admin Dose Admin Dextrose 50 ml UD PRN IV 11/12/24 13:00 Bisacodyl 10 mg DAILYP PRN [place] 11/12/24 13:15 Enoxaparin Sodium 40 mg DAILY SC 11/13/24 10:00 UNV Patient Own Medication 1 tab QPM PO 11/12/24 18:00 UNV Patient Own Medication 1 tab BID PO 11/12/24 22:00 UNV Patient Own Medication 2 gm Q8HR IV 11/12/24 14:00 UNV Albuterol 2.5 mg Q4HPRN PRN NEB 11/14/24 12:30 11/15/24 13:41 2.5 MG Ipratropium [place] 0.5 mg Q4HR NEB 11/14/24 14:00 11/16/24 06:40 0.5 MG Propofol 100 ml @ 1.845 mls/ hr Q24H IV 11/14/24 12:45 Midazolam HCl 50 ml @ 1 mls/hr Q24H IV 11/14/24 12:45 11/15/24 18:06 4 MLS/HR Fentanyl Citrate 250 ml @ 2.5 mls/hr Q24H IV 11/14/24 12:45 11/15/24 15:27 10 MLS/HR Norepinephrine Bitartrate 250 ml @ 3.75 mls/hr Q24H IV 11/14/24 13:00 11/14/24 14:22 3.75 MLS/HR Cefepime HCl 50 ml @ 12.5 mls/hr Q12HR IV 11/14/24 22:00 11/15/24 21:41 12.5 MLS/HR Acetaminophen 650 mg Q6HP PRN PO 11/14/24 17:00 Diagnostic Test (Pha) 1 strip Q4HR 11/14/24 22:00 11/16/24 05:58 1 STRIP Insulin Human Lispro Q4HR SC 11/14/24 22:00 11/16/24 05:51 2 UNITS Methylprednisolone Sodium Succinate 40 mg DAILY IV 11/15/24 10:00 11/15/24 08:21 40 MG Atorvastatin Calcium 80 mg HS PO 11/15/24 08:00 11/15/24 22:09 80 MG Clopidogrel Bisulfate 75 mg DAILY PO 11/16/24 10:00 Pantoprazole Sodium 40 mg DAILY IV 11/16/24 10:00 Heparin Sodium/ Dextrose 250 ml @ 5 mls/hr Q24H IV 11/16/24 05:30 11/16/24 05:30 5 MLS/HR Examination General Appearance: Intubated, sedated Head Exam: Normal inspection Neck Exam: Normal inspection. Non-tender. Normal alignment Pulmonary/Respiratory: Chest non-tender. Clear bilateral breath sounds Cardiovascular/Chest: Regular rate and rhythm. No murmurs. No JVD. Peripheral Pulses: 2+ Radial (R). 2+ Radial (L). 2+ Pedal (R). 2+ Pedal (L) Abdominal Exam: Normal bowel sounds. Soft. Nontender. No hepatospenomegaly. No masses Ankle Exam: Negative ankle edema Lower extremities: Negative lower extremity edema Neuro/Mental Status: Sedated, RASS -3, reactive pupil with positive gag reflex. laboratory and microbiology Laboratory Tests 11/16/24 03:10 Test 11/16/24 03:10 Range/Units Serum Glucose 226 H 74-106 mg/dL Microbiology Date/Time Source Procedure Growth Status 11/14/24 17:00 Blood Blood Culture - Preliminary NO GROWTH AFTER 24 HOURS OF INCUBATION. Resulted 11/14/24 14:55 Nose MRSA Screen - Final Complete 11/14/24 14:55 Urine - Catheterized Urine Culture - Preliminary Resulted Problem List/Assessment/Plan Problem List/Assessment/Plan Septic shock due to osteomyelitis, pneumonia Gram-positive versus Gram-negative Acute hypoxic respiratory failure due to CHF, pneumonia Pneumonia Gram-positive versus negative Acute systolic versus diastolic CHF NSTEMI type 1 Osteomyelitis Uncontrolled diabetes type 2 mellitus with HGB A1c 8.3% EREN due to VMN History of hypertension Constipation Possible ileus Possible dementia Plan/recommendation -continue sedation with fentanyl and midazolam. Target RASS minus two. Reactive pupils, gag reflex present. Daily sedation vacation and possible. Avoid over sedation given few episodes of bradycardia -continue current ventilation with AC mode. No change ventilation has been done today. Tidal volume 18, tidal volume 400, FiO2 30%, peep five. -continue IV antibiotic with cefepime. Blood culture on 11/14/2024 came negative. -given underlying NSTEMI, continue heparin drip with Plavix 75 mg via G-tube and atorvastatin 80 mg p.o. via G-tube. Family opted out from any intervention. Continue management medically. Cardiology on board. -patient is NPO till now, no bowel movement known, we will start with feeding via G-tube with a Glucerna. Continue Protonix 40 mg for PUD prophylaxis. Senna and bisacodyl p.r.n.. -continue with insulin sliding scale with target of 140-180 mg/dL. -given patient is on heparin drip, continue to monitor PTT, hemoglobin and platelet count. -aspiration precaution with elevation of bed up to 30%. Pressure injury precaution with done every 2-4 hours. PUD prophylaxis with Protonix DVT prophylaxis with heparin Poor prognosis Extensive care discussion with over telephone, continued to agreeing with only medical management only. Patient continued to be chemical code. Critical care time spent greater than 50 minutes. Plan discussed with Dr. Baldwin. Plan discussed with: Spouse, Other (RN) My Orders My Orders Orders - EMELI GUTIERREZ Procedure Category Date Status Time Furosemide Injection PHA 11/16/24 Logged (Lasix Injection) 08:15 Kub Abdomen Single XY 11/16/24 Logged View 08:14 Date of Service: Nov 16, 2024 Billing Provider: MINI BALDWIN MD Common Visit Codes: [id number] CARE 30-74 MIN EMELI GUTIERREZ Nov 16, 2024 08:24 MINI BALDWIN MD Nov 27, 2024 16:03
--- NOTE | 2024-11-16 08:33 | DVH ---
CHEST RADIOGRAPH Indication: acute hypoxic respi failure Technique: Single frontal view of the chest was obtained COMPARISON: XY CHEST XRAY 1 VIEW on DOS: 11/15/24, XY CHEST XRAY 1 VIEW on DOS: 11/14/24, XY CHEST POR TABLE on DOS: 11/14/24, XY CHEST PORTABLE on DOS: 11/12/24 FINDINGS: Lines and Tubes: Endotracheal tube, enteric catheter and right central venous catheter in satisfactor y position. Lungs: Unchanged pulmonary edema. Pleura: Unchanged small bilateral pleural effusions. No pneumothorax. Cardiomediastinal contours: Unremarkable Bones: Unremarkable IMPRESSION: Lines and tubes in satisfactory position. No significant interval change.
[2024-11-16] MEDS: PANTOPRAZOLE 40 MG/10 ML VIAL INJ IV SCH (08:47)
[2024-11-16] MEDS: FUROSEMIDE 40 MG/4 ML VIAL IV ONE (08:48)
[2024-11-16] MEDS: CLOPIDOGREL BISULFATE 75 MG TAB PO SCH (08:49)
--- NOTE | 2024-11-16 11:46 | DVH ---
CLINICAL HISTORY: No bowel movement. TECHNIQUE: Single AP abdominal radiograph was obtained. COMPARISON: None FINDINGS: Nonspecific mildly distended gas-filled small bowel loops measuring up to 2.8 cm in diamet er with gas and scattered stool in the colon. Enteric tube reaches the body of the stomach. There are calcifications in the pelvis, most likely phleboliths. IMPRESSION: 1. Enteric tube reaches the stomach. 2. Nonspecific nonobstructive bowel gas pattern, possible ileus in the appropriate clinical setting.
[2024-11-16 12:44] LABS: INR 1.12 (0.9-1.15); Partial Thromboplastin Time 49.1 SEC (24.5-34.5); Prothrombin Time 11.7 sec (9.3-11.8)
[2024-11-16] MEDS ORDERED: Glucerna 1.2 Cal 1Liter BOTTLE GT SCH (12:45)
--- NOTE | 2024-11-16 13:08 | CONS ---
Pharmacy Clinical Information: HEPARIN PER ACS PROTOCOL: APTT result of 49.1 received from draw on 11/16 @1206. Increase rate 200 units per hour. New rate is 700 units per hour (7ml/hr). Orders read back and confirmed with GIACOMO Good @9120. Next APTT scheduled for 1900. LUKASZ COVARRUBIAS PHARMACIST Nov 16, 2024 13:08
--- NOTE | 2024-11-16 15:46 | DVHPN2 ---
Progress Note - Dictate Date Seen: Nov 16, 2024 Has the PT tested + for MRSA If YES, has PT been informed?: No Medical Necessity Reason Pt with a Central, PICC or Fol: Yes The following are medically ne: Central Line, Balderrama Catheter vital signs Vital Sign Date Time Temp Pulse Resp B/P (MAP) Pulse Ox O2 Delivery O2 Flow Rate FiO2 11/16/24 14:30 57 18 116/48 (70) 97 30 11/16/24 14:00 Mechanical Ventilator+ 11/16/24 12:00 98.1 98.1 11/16/24 08:00 0 Total Intake and Output 11/15/24 11/15/24 11/16/24 15:00 23:00 07:00 Intake Total 203.50 ml 217.00 ml 184.50 ml Output Total 250 ml 450 ml Balance 203.50 ml -33.00 ml -265.50 ml medications Current Medications Medications Dose Ordered Sig/Cira Route Start Time Stop Time Status Last Admin Dose Admin Dextrose 50 ml UD PRN IV 11/12/24 13:00 Bisacodyl 10 mg DAILYP PRN [place] 11/12/24 13:15 Enoxaparin Sodium 40 mg DAILY SC 11/13/24 10:00 UNV Patient Own Medication 1 tab QPM PO 11/12/24 18:00 UNV Patient Own Medication 1 tab BID PO 11/12/24 22:00 UNV Patient Own Medication 2 gm Q8HR IV 11/12/24 14:00 UNV Albuterol 2.5 mg Q4HPRN PRN NEB 11/14/24 12:30 11/15/24 13:41 2.5 MG Ipratropium [place] 0.5 mg Q4HR NEB 11/14/24 14:00 11/16/24 13:10 0.5 MG Propofol 100 ml @ 1.845 mls/ hr Q24H IV 11/14/24 12:45 Midazolam HCl 50 ml @ 1 mls/hr Q24H IV 11/14/24 12:45 11/15/24 18:06 4 MLS/HR Fentanyl Citrate 250 ml @ 2.5 mls/hr Q24H IV 11/14/24 12:45 11/15/24 15:27 10 MLS/HR Norepinephrine Bitartrate 250 ml @ 3.75 mls/hr Q24H IV 11/14/24 13:00 11/14/24 14:22 3.75 MLS/HR Cefepime HCl 50 ml @ 12.5 mls/hr Q12HR IV 11/14/24 22:00 11/16/24 08:48 12.5 MLS/HR Acetaminophen 650 mg Q6HP PRN PO 11/14/24 17:00 Diagnostic Test (Pha) 1 strip Q4HR 11/14/24 22:00 11/16/24 13:48 1 STRIP Insulin Human Lispro Q4HR SC 11/14/24 22:00 11/16/24 13:51 1 UNITS Methylprednisolone Sodium Succinate 40 mg DAILY IV 11/15/24 10:00 11/16/24 08:47 40 MG Atorvastatin Calcium 80 mg HS PO 11/15/24 08:00 11/15/24 22:09 80 MG Clopidogrel Bisulfate 75 mg DAILY PO 11/16/24 10:00 11/16/24 08:49 75 MG Pantoprazole Sodium 40 mg DAILY IV 11/16/24 10:00 11/16/24 08:47 40 MG Heparin Sodium/ Dextrose 250 ml @ 7 mls/hr Q24H IV 11/16/24 13:00 11/16/24 12:50 7 MLS/HR Enteral Nutritional Formula 1,000 ml 30ML/HR GT 11/16/24 13:30 laboratory and microbiology Laboratory Tests 11/16/24 03:10 Test 11/16/24 03:10 Range/Units Serum Glucose 226 H 74-106 mg/dL Assessment/Plan Drain Tiler rounds 74-year-old gentleman with advanced cardiomyopathy Intubated for pulmonary edema and congestive heart failure Currently on the ventilator Seen and examined in the ICU Sedation per protocol AC volume control peep of five FiO2 40% ABG be 7.38 pCO2 38 PO2 96 Chest x-ray Endotracheal tube place correctly Moderate right pleural effusion seen Drips Heparin Levophed Sepsis Labs reviewed BUN and creatinine elevated Management plan Continue conservative management Facilitate weaning from the ventilator Consider right-sided thoracentesis We will place heparin on hold Monday procedures if family consents Otherwise continue supportive care Antibiotics bronchodilators Monitor renal function Monitor BUN/creatinine Replace electrolytes Nutrition support GI and DVT prophylaxis Critical care time 35 minutes Plan discussed with: Other (rn) YUVAL COLLINS MD Nov 16, 2024 15:46
--- NOTE | 2024-11-16 18:12 | DVHPN2 ---
Subjective No cardiac events reported Reviewed: Care Plan, H&P Changes from previous H/P or p: No Changes General: Per HPI ENT: No Ear pain, No Ear discharge, No Nose pain, No Nose discharge, No Nose congestion, No Mouth pain, No Mouth swelling, No Throat pain, No Throat swelling, No Other Cardiovascular: Chest Pain; No Palpitations, No Orthopnea, No Paroxysmal Noc. Dyspnea, No Edema, No Lt Headedness, No Other Respiratory: No Cough, No Dry, No Shortness of breath, No SOB with excertion, No Wheezing, No Hemoptysis, No Pleuritic Pain, No Sputum, No Other Gastrointestinal: No Nausea, No Vomiting, No Abdominal Pain, No Diarrhea, No Constipation, No Melena, No Hematochezia, No Other Genitourinary: No Dysuria, No Frequency, No Incontinence, No Hematuria, No Retention, No Other Musculoskeletal: No other, No neck pain, No shoulder pain, No arm pain; back pain; No hand pain, No leg pain, No foot pain Skin: No Rash, No Lesions, No Jaundice, No Bruising, No Other Objective Vitals Vital Signs Date Time Temp Pulse Resp B/P (MAP) Pulse Ox O2 Delivery O2 Flow Rate FiO2 11/16/24 17:25 93/42 11/16/24 16:15 67 15 88 11/16/24 16:00 Mechanical Ventilator+ 30 30 11/16/24 16:00 96.8 96.8 11/16/24 08:00 0 Intake/Output Intake and Output 11/16/24 07:00 Intake Total 605.00 ml Output Total 700 ml Balance -95.00 ml Intake Oral 40 ml IV Total 565.00 ml Output Urine Total 500 ml Gastric Drainage Total 200 ml Medications Current Medications Medications Dose Ordered Sig/Cira Route Start Time Stop Time Status Last Admin Dose Admin Dextrose 50 ml UD PRN IV 11/12/24 13:00 Bisacodyl 10 mg DAILYP PRN [place] 11/12/24 13:15 Enoxaparin Sodium 40 mg DAILY SC 11/13/24 10:00 UNV Patient Own Medication 1 tab QPM PO 11/12/24 18:00 UNV Patient Own Medication 1 tab BID PO 11/12/24 22:00 UNV Patient Own Medication 2 gm Q8HR IV 11/12/24 14:00 UNV Albuterol 2.5 mg Q4HPRN PRN NEB 11/14/24 12:30 11/15/24 13:41 2.5 MG Ipratropium [place] 0.5 mg Q4HR NEB 11/14/24 14:00 11/16/24 17:51 0.5 MG Propofol 100 ml @ 1.845 mls/ hr Q24H IV 11/14/24 12:45 Midazolam HCl 50 ml @ 1 mls/hr Q24H IV 11/14/24 12:45 11/15/24 18:06 4 MLS/HR Fentanyl Citrate 250 ml @ 2.5 mls/hr Q24H IV 11/14/24 12:45 11/16/24 17:25 12.5 MLS/HR Norepinephrine Bitartrate 250 ml @ 3.75 mls/hr Q24H IV 11/14/24 13:00 11/14/24 14:22 3.75 MLS/HR Cefepime HCl 50 ml @ 12.5 mls/hr Q12HR IV 11/14/24 22:00 11/16/24 08:48 12.5 MLS/HR Acetaminophen 650 mg Q6HP PRN PO 11/14/24 17:00 Diagnostic Test (Pha) 1 strip Q4HR 11/14/24 22:00 11/16/24 17:24 1 STRIP Insulin Human Lispro Q4HR SC 11/14/24 22:00 11/16/24 17:26 1 UNITS Methylprednisolone Sodium Succinate 40 mg DAILY IV 11/15/24 10:00 11/16/24 08:47 40 MG Atorvastatin Calcium 80 mg HS PO 11/15/24 08:00 11/15/24 22:09 80 MG Clopidogrel Bisulfate 75 mg DAILY PO 11/16/24 10:00 11/16/24 08:49 75 MG Pantoprazole Sodium 40 mg DAILY IV 11/16/24 10:00 11/16/24 08:47 40 MG Heparin Sodium/ Dextrose 250 ml @ 7 mls/hr Q24H IV 11/16/24 13:00 11/16/24 12:50 7 MLS/HR Enteral Nutritional Formula 1,000 ml 30ML/HR GT 11/16/24 13:30 Laboratory Results Laboratory Tests 11/16/24 03:10 Chemistry Test 11/16/24 03:10 Albumin 2.9 g/dL (3.2-4.8) L Calcium Level 7.5 mg/dL (8.7-10.4) L Magnesium Level 2.6 mg/dL (1.6-2.6) Total Protein 6.7 g/dL (5.7-8.2) Coagulation Test 11/15/24 22:30 11/16/24 04:30 11/16/24 12:06 Prothrombin Time 11.5 sec (9.3-11.8) 11.7 sec (9.3-11.8) 11.7 sec (9.3-11.8) Prothrombin Time INR 1.09 (0.9-1.15) 1.12 (0.9-1.15) 1.12 (0.9-1.15) Activated Partial Thromboplast Time 71.6 SEC (24.5-34.5) *H 79.7 SEC (24.5-34.5) *H 49.1 SEC (24.5-34.5) H LFT Test 11/16/24 03:10 Alanine Aminotransferase (ALT) < 9 U/L (7-40) Alkaline Phosphatase 80 U/L (46-116) Aspartate Amino Transferase (AST) 16 U/L (13-40) Total Bilirubin 0.3 mg/dL (0.2-1.0) Urinalysis Test 11/14/24 14:55 Urine Color Light-yellow (Yellow) Urine Clarity Clear (Clear) Urine pH 6.0 (5.0-9.0) Urine Specific [place] 1.016 (1.001-1.035) Urine Protein 2+ (Negative) H Urine Ketones 1+ (Negative) H Urine Blood 3+ /uL (Negative) H Urine Nitrite Negative (Negative) Urine Bilirubin Negative (Negative) Urine Urobilinogen Normal mg/dL (Negative) Urine Leukocyte Esterase Negative /uL (Negative) Urine RBC 174 /hpf (0 - 3) Urine Microscopic WBC 6 /HPF (0-3) H Urine Squamous Epithelial Cells None seen /hpf (<5) Urine Bacteria None seen /hpf (None Seen) Urine Mucus Few (None Seen) Urine Glucose 4+ mg/dL (Normal) H Blood Gas Results Test 11/16/24 06:40 Arterial Blood pH 7.382 (7.350-7.450) FiO2 % 30.0 Microbiology Microbiology Date/Time Source Procedure Growth Status 11/14/24 17:00 Blood Blood Culture - Preliminary NO GROWTH AFTER 48 HOURS OF INCUBATION. Resulted 11/14/24 14:55 Nose MRSA Screen - Final Complete 11/14/24 14:55 Urine - Catheterized Urine Culture - Final Complete Assessment/Plan Assessment/Plan Assessment NSTEMI, likely type 1 ?Wellens syndrome Rule out structural heart disease Hypertension Pneumonia Type 2 diabetes mellitus Acute kidney injury History of tobacco use Possible early-onset dementia Plan/Recommendation We will continue with the following plan/recommendations (Dr. Zamora): 11/16/24 - Echo pending. Remained chemical code. Continue with current cardiac plan. Case discussed with . We will proceed with obtaining a transthoracic echocardiogram to evaluate cardiac function and wall motion. Given significant up-trend in troponin level and significant EKG changes (Wellens syndrome pattern), highly suspect NSTEMI type 1. Patient was initiated on a heparin bolus followed by heparin drip per ACS protocol. The patient is allergic to aspirin, we will start Plavix therapy and statin therapy. Had a long discussion with the patient's , Penelope, regarding plans for coronary angiogram with left heart catheterization. Per patient's , she refuses any invasive cardiac workup at this time. Per the patient's , the patient has previously discussed being "DNR" and does not wish for any invasive procedures. The patient's states that she does not want compressions, ACLS medications, or defibrillation in the event of cardiac arrest. The patient's is adamantly refusing coronary angiogram for the patient at this time. We will continue with medical management per family wishes. Continue with close cardiac surveillance. Thank you for allowing us to care for this patient. Please call with any questions or concerns. Critical care time spent: 44 minutes This medical document was created using an electronic medical record system with voice recognition software and computerized dictation system. Although this document has been carefully reviewed, there might still be some phonetic and typographical errors. Occasional wrong-word or ``sound-alike substitutions may have occurred due to the inherent limitations of voice recognition software. These areas are purely typographical due to imperfections of the software programs and do not reflect any compromise in the patient's medical care. Please read the chart carefully and recognize, using context, where these substitutions have occurred. Plan discussed with: Spouse, Other (Bedside RN) NYHA 2 Physical activity limitations: NA Plan discussed with: Patient, Other (RN, Dr. Zamora) Date of Service: Nov 16, 2024 Billing Provider: ANJU ZAMORA MD Common Visit Codes: CONSULT ONLY Consultation Codes: [id number] CONSULT <45MIN SP ENNIS EN[employer] ARCHITECT Nov 16, 2024 18:12
[2024-11-16 19:31] LABS: INR 1.09 (0.9-1.15); Prothrombin Time 11.5 sec (9.3-11.8)
[2024-11-16 19:37] LABS: Partial Thromboplastin Time 85.7 SEC (24.5-34.5)
[2024-11-16] MEDS: Glucerna 1.2 Cal 1Liter BOTTLE GT SCH (21:57)
--- NOTE | 2024-11-16 23:49 | DVHPN2 ---
Consult Progress Note Date Seen: Nov 16, 2024 Subjective Other Systems: Patient was seen and evaluated in follow up in the ICU.Patient is intubated and sedated on ventilator. 30% FiO2. Per RN, the patient's is refusing any invasive procedures. WBC 11.4, HGB 8.5, HCT 25.6, PTT 49.1, BUN 47, [employer] ARCH[employer] 1.94, CA 7.5. KUB shows nonspecific nonobstructive bowel gas pattern, possible ileus in the appropriate clinical setting. Objective vital signs Vital Sign Date Time Temp Pulse Resp B/P (MAP) Pulse Ox O2 Delivery O2 Flow Rate FiO2 11/16/24 18:15 60 18 102/42 (62) 100 11/16/24 18:00 30 11/16/24 18:00 Mechanical Ventilator+ 11/16/24 16:00 96.8 96.8 11/16/24 08:00 0 Total Intake and Output 11/15/24 11/15/24 11/16/24 15:00 23:00 07:00 Intake Total 203.50 ml 217.00 ml 184.50 ml Output Total 250 ml 450 ml Balance 203.50 ml -33.00 ml -265.50 ml medications Current Medications Medications Dose Ordered Sig/Cira Route Start Time Stop Time Status Last Admin Dose Admin Dextrose 50 ml UD PRN IV 11/12/24 13:00 Bisacodyl 10 mg DAILYP PRN [place] 11/12/24 13:15 Enoxaparin Sodium 40 mg DAILY SC 11/13/24 10:00 UNV Patient Own Medication 1 tab QPM PO 11/12/24 18:00 UNV Patient Own Medication 1 tab BID PO 11/12/24 22:00 UNV Patient Own Medication 2 gm Q8HR IV 11/12/24 14:00 UNV Albuterol 2.5 mg Q4HPRN PRN NEB 11/14/24 12:30 11/15/24 13:41 2.5 MG Ipratropium [place] 0.5 mg Q4HR NEB 11/14/24 14:00 11/16/24 17:51 0.5 MG Propofol 100 ml @ 1.845 mls/ hr Q24H IV 11/14/24 12:45 Midazolam HCl 50 ml @ 1 mls/hr Q24H IV 11/14/24 12:45 11/15/24 18:06 4 MLS/HR Fentanyl Citrate 250 ml @ 2.5 mls/hr Q24H IV 11/14/24 12:45 11/16/24 17:25 12.5 MLS/HR Norepinephrine Bitartrate 250 ml @ 3.75 mls/hr Q24H IV 11/14/24 13:00 11/14/24 14:22 3.75 MLS/HR Cefepime HCl 50 ml @ 12.5 mls/hr Q12HR IV 11/14/24 22:00 11/16/24 08:48 12.5 MLS/HR Acetaminophen 650 mg Q6HP PRN PO 11/14/24 17:00 Diagnostic Test (Pha) 1 strip Q4HR 11/14/24 22:00 11/16/24 17:24 1 STRIP Insulin Human Lispro Q4HR SC 11/14/24 22:00 11/16/24 17:26 1 UNITS Methylprednisolone Sodium Succinate 40 mg DAILY IV 11/15/24 10:00 11/16/24 08:47 40 MG Atorvastatin Calcium 80 mg HS PO 11/15/24 08:00 11/15/24 22:09 80 MG Clopidogrel Bisulfate 75 mg DAILY PO 11/16/24 10:00 11/16/24 08:49 75 MG Pantoprazole Sodium 40 mg DAILY IV 11/16/24 10:00 11/16/24 08:47 40 MG Heparin Sodium/ Dextrose 250 ml @ 7 mls/hr Q24H IV 11/16/24 13:00 11/16/24 12:50 7 MLS/HR Enteral Nutritional Formula 1,000 ml 30ML/HR GT 11/16/24 13:30 Examination: GENERAL:Abnormal, LUNGS:Abnormal, CVS:Normal, ABDOMEN:Normal laboratory and microbiology Laboratory Tests 11/16/24 03:10 Test 11/16/24 03:10 Range/Units Serum Glucose 226 H 74-106 mg/dL Problem List/Assessment/Plan Problem List/Assessment/Plan Problem list NSTEMI, likely type 1. ?Wellens syndrome. Rule out structural heart disease. Hypertension. Pneumonia. Type 2 diabetes mellitus. Acute kidney injury. History of tobacco use. Possible early-onset dementia. Plan/Recommendation Continued all current supportive medical care. Patient has been seen by Yohana Berger NP on my behalf, her and I discussed the plan with the patient. 10/11/25 - Echo pending. Remained chemical code. Continue with current cardiac plan. We will proceed with obtaining a transthoracic echocardiogram to evaluate cardiac function and wall motion. Given significant up-trend in troponin level and significant EKG changes (Wellens syndrome pattern), highly suspect NSTEMI type 1. Patient was initiated on a heparin bolus followed by heparin drip per ACS protocol. The patient is allergic to aspirin, we will start Plavix therapy and statin therapy. Had a long discussion with the patient's , Penelope, regarding plans for coronary angiogram with left heart catheterization. Per patient's , she refuses any invasive cardiac workup at this time. Per the patient's , the patient has previously discussed being "DNR" and does not wish for any invasive procedures. The patient's states that she does not want compressions, ACLS medications, or defibrillation in the event of cardiac arrest. The patient's is adamantly refusing coronary angiogram for the patient at this time. We will continue with medical management per family wishes. Continue with close cardiac surveillance. Additional plan as per the hospital course. Plan discussed with: Other Date of Service: Nov 16, 2024 Billing Provider: ANJU ZAMORA MD Cardiology Common Codes: [id number] HOSP CARE(High Cardiology Consultation Codes: [id number] CONSULT <45MIN ANJU ZAMOAR MD Nov 16, 2024 18:37
[2024-11-17] VITALS (104 sets, daily range): BP systolic 95–136; BP diastolic 40–82; PULSE 50–118; RESP 8–24; TEMP 97–99.2; O2SAT 95–100
[2024-11-17 02:33] LABS: Hematocrit 21.8 % (41.0-53.0); Nucleated Red Blood Cells % 0.0 %
[2024-11-17 02:35] LABS: Hemoglobin 7.4 g/dL (13.5-17.5); Mean Corpuscular Hemoglobin 28.4 pg (28.0-32.0); Mean Corpuscular Volume 83.9 fL (80.0-100.0)
[2024-11-17 02:42] LABS: Potassium 3.9 mmol/L (3.5-5.1)
[2024-11-17 02:43] LABS: Anion Gap 12 (5-15); Carbon Dioxide 26 mmol/L (20-31)
[2024-11-17 02:47] LABS: INR 1.13 (0.9-1.15); Partial Thromboplastin Time 63.5 SEC (24.5-34.5); Prothrombin Time 11.8 sec (9.3-11.8)
[2024-11-17 02:49] LABS: BUN/Creatinine Ratio 28.8 (10.0-20.0)
[2024-11-17 02:58] LABS: Blood Urea Nitrogen 59 mg/dL (9-23); Calcium 7.3 mg/dL (8.7-10.4); Chloride 108 mmol/L (98-107); Glucose 178 mg/dL (74-106); Sodium 146 mmol/L (136-145)
--- NOTE | 2024-11-17 06:20 | DVH ---
EXAM: XY CHEST PORTABLE HISTORY: INTUBATED COMPARISON: XY CHEST XRAY 1 VIEW on DOS: 11/16/24, XY CHEST XRAY 1 VIEW on DOS: 11/15/24, XY CHEST XR AY 1 VIEW on DOS: 11/14/24, XY CHEST PORTABLE on DOS: 11/14/24, XY CHEST PORTABLE on DOS: 11/12/24 TECHNIQUE: Portable AP view of the chest was performed. FINDINGS: The left lung base was not fully imaged here. Endotracheal tube is re-identified with its tip 12 mm a yamileth the kassie. OG tube and right IJ central line are re-identified. No pneumothorax. There bilater al mid to lower lung infiltrates and effusions. The heart is borderline enlarged. IMPRESSION: 1. Mechanical ventilation with tubes and lines as above. 2. Bilateral mid to lower lung infiltrates and effusions, stable. 3. The left lung base was not fully imaged here.
[2024-11-17 07:02] LABS: Base Excess -0.2 mmol/L (-2.0-3.0)
[2024-11-17 07:55] LABS: Hemoglobin 7.3 g/dL (13.5-17.5); Nucleated Red Blood Cells % 0.0 %
[2024-11-17 07:59] LABS: Hematocrit 21.5 % (41.0-53.0); Mean Corpuscular Hemoglobin 28.5 pg (28.0-32.0); Mean Corpuscular Volume 84.2 fL (80.0-100.0)
[2024-11-17 08:07] LABS: INR 1.12 (0.9-1.15); Partial Thromboplastin Time 55.4 SEC (24.5-34.5); Prothrombin Time 11.7 sec (9.3-11.8)
--- NOTE | 2024-11-17 09:36 | ECG ---
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
--- NOTE | 2024-11-17 09:50 | ECG ---
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
--- NOTE | 2024-11-17 09:52 | ECG ---
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
--- NOTE | 2024-11-17 09:53 | ECG ---
[facility] Test Date: 2024-11-15 Test Time: 08:10:37 Pat Name: CHALO DIXON Department: Respiratoy Room: 0262 A Gender: M Director Mobile: REID : [id number] Requested By: JULI HIGGINS Order Number: [id number] Reading MD: Mikhail Mcclendon Measurements Intervals [place] Rate: 90 P: 60 AL: 145 QRS: 14 QRSD: 102 T: 170 QT: 494 QTc: 605 Interpretive Statements Sinus rhythm Paired ventricular premature complexes Low voltage, extremity leads Consider anterolateral infarct Repolarization abnormality, prob rate related Prolonged QT interval Baseline wander in lead(s) I,II,aVR,V3,V4,V5,V6 Electronically Signed On 11-19-2024 15:03:55 PDT by Mikhail Mcclendon Please click the below link to view image of tracing.
--- NOTE | 2024-11-17 12:55 | DVHPN2 ---
Progress Note - Dictate Date Seen: Nov 17, 2024 Medical Necessity Reason Pt with a Central, PICC or Fol: Yes The following are medically ne: Central Line, Balderrama Catheter vital signs Vital Sign Date Time Temp Pulse Resp B/P (MAP) Pulse Ox O2 Delivery O2 Flow Rate FiO2 11/17/24 12:00 30 11/17/24 12:00 18 97 Mechanical Ventilator+ 11/17/24 12:00 74 11/17/24 11:18 121/54 (76) 11/17/24 08:00 98.3 98.3 11/17/24 08:00 0 Total Intake and Output 11/16/24 11/16/24 11/17/24 15:00 23:00 07:00 Intake Total 208.0 ml 223.0 ml 311.0 ml Output Total 350 ml 250 ml Balance 208.0 ml -127.0 ml 61.0 ml medications Current Medications Medications Dose Ordered Sig/Cira Route Start Time Stop Time Status Last Admin Dose Admin Dextrose 50 ml UD PRN IV 11/12/24 13:00 Bisacodyl 10 mg DAILYP PRN DC 11/12/24 13:15 Enoxaparin Sodium 40 mg DAILY SC 11/13/24 10:00 UNV Patient Own Medication 1 tab QPM PO 11/12/24 18:00 UNV Patient Own Medication 1 tab BID PO 11/12/24 22:00 UNV Patient Own Medication 2 gm Q8HR IV 11/12/24 14:00 UNV Albuterol 2.5 mg Q4HPRN PRN NEB 11/14/24 12:30 11/17/24 05:44 2.5 MG Ipratropium [place] 0.5 mg Q4HR NEB 11/14/24 14:00 11/17/24 11:10 0.5 MG Propofol 100 ml @ 1.845 mls/ hr Q24H IV 11/14/24 12:45 Midazolam HCl 50 ml @ 1 mls/hr Q24H IV 11/14/24 12:45 11/17/24 01:50 2 MLS/HR Fentanyl Citrate 250 ml @ 2.5 mls/hr Q24H IV 11/14/24 12:45 11/17/24 08:24 15 MLS/HR Norepinephrine Bitartrate 250 ml @ 3.75 mls/hr Q24H IV 11/14/24 13:00 11/14/24 14:22 3.75 MLS/HR Cefepime HCl 50 ml @ 12.5 mls/hr Q12HR IV 11/14/24 22:00 11/17/24 14:00 11/17/24 08:13 12.5 MLS/HR Acetaminophen 650 mg Q6HP PRN PO 11/14/24 17:00 Diagnostic Test (Pha) 1 strip Q4HR 11/14/24 22:00 11/17/24 08:13 1 STRIP Insulin Human Lispro Q4HR SC 11/14/24 22:00 11/17/24 08:13 1 UNITS Methylprednisolone Sodium Succinate 40 mg DAILY IV 11/15/24 10:00 11/17/24 08:13 40 MG Atorvastatin Calcium 80 mg HS PO 11/15/24 08:00 11/16/24 21:48 80 MG Clopidogrel Bisulfate 75 mg DAILY PO 11/16/24 10:00 11/17/24 08:13 75 MG Pantoprazole Sodium 40 mg DAILY IV 11/16/24 10:00 11/17/24 08:13 40 MG Enteral Nutritional Formula 1,000 ml 30ML/HR GT 11/16/24 13:30 11/16/24 21:57 1,000 ML Heparin Sodium/ Dextrose 250 ml @ 5 mls/hr Q24H IV 11/16/24 21:00 11/16/24 21:00 5 MLS/HR Cefepime HCl 50 ml @ 12.5 mls/hr DAILY IV 11/18/24 10:00 laboratory and microbiology Laboratory Tests 11/17/24 07:20 11/17/24 02:00 Test 11/17/24 02:00 Range/Units Serum Glucose 178 H 74-106 mg/dL Assessment/Plan 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 74-year-old gentleman with advanced cardiomyopathy Intubated for pulmonary edema and congestive heart failure Currently on the ventilator Seen and examined in the ICU on mechanical ventilation PEEP 5, FIO2 30% Chest x-ray Endotracheal tube place correctly Moderate right pleural effusion seen Family declining thoracentesis Labs reviewed Management plan Continue conservative management as per family Facilitate weaning from the ventilator Otherwise continue supportive care Antibiotics bronchodilators Monitor renal function Monitor BUN/creatinine Replace electrolytes Nutrition support GI and DVT prophylaxis Critical care time 35 minutes Plan discussed with: Other (Rn) YUVAL COLLINS MD Nov 17, 2024 12:55
[2024-11-17 13:55] LABS: Hemoglobin 7.4 g/dL (13.5-17.5)
[2024-11-17 13:58] LABS: Hematocrit 21.8 % (41.0-53.0)
[2024-11-17 14:25] LABS: INR 1.13 (0.9-1.15); Partial Thromboplastin Time 49.5 SEC (24.5-34.5); Prothrombin Time 11.8 sec (9.3-11.8)
--- NOTE | 2024-11-17 15:08 | DVHPNRES ---
Progress Note Date Seen: Nov 17, 2024 Resident Creating Document: JULI HIGGINS RESIDENT Medical Necessity Reason Pt with a Central, PICC or Fol: Yes The following are medically ne: Central Line, Balderrama Catheter Subjective Review of Systems * Currently intubated and sedated on propofol, midazolam, and fentanyl (2 mg/hr, 150 mcg/hr). * On heparin drip per ACS protocol (NSTEMI Type 1, Wellens pattern). * Aspirin allergy managed with Plavix 75 mg PO daily and atorvastatin 80 mg PO daily. * Methylprednisolone 48 mg IV daily, Protonix IV daily, Tylenol PRN, Albuterol/Ipratropium nebs, Bisacodyl suppository PRN, GT feeding with Glucerna 1.5, initiated yesterday at 30 mL/hr, increased today as tolerated. * Bach-cultures negative (blood, urine, MRSA). * CXR: Bilateral [id number] interstitial infiltrates, stable from yesterday; small pleural effusions; left lung base incompletely visualized. * KUB: Non-obstructive bowel gas pattern, possible ileus. Lactulose initiated. * ABG (11/17): pH 7.35, pCO46.7, pO 95, HCO 25.4, O sat 95.6% (all within normal limits). * Renal function worsening: BUN 59 ( from 47), Cr 2.05 (from 1.94), GFR 34 (). * Hgb 7.3, WBC 7.1, Plt 355, Na 146, K 3.9. * BP 120/59, HR 78, SpO? 95% on FiO 35%; off pressors since yesterday. * CPAP and sedation weaning trials initiated today. * DNR/chemical code only status reaffirmed with patients (refusing CPR, shocks, or invasive cardiac interventions). Review of Systems (limited due to intubation and sedation) * General: Sedated, mechanically ventilated. * Cardiac: No new hemodynamic instability; off pressors. * Respiratory: On ventilator, oxygenation stable. * GI: Tube feeds tolerated; mild distension, possible ileus. * : Balderrama catheter in place; adequate output. * Neuro: Sedated; follows no commands. * Skin: Intact, no new lesions. Objective vital signs Vital Sign Date Time Temp Pulse Resp B/P (MAP) Pulse Ox O2 Delivery O2 Flow Rate FiO2 11/17/24 14:06 76 18 114/59 96 30 11/17/24 14:00 Mechanical Ventilator+ 11/17/24 12:00 97.6 97.6 11/17/24 08:00 0 Total Intake and Output 11/16/24 11/16/24 11/17/24 15:00 23:00 07:00 Intake Total 208.0 ml 223.0 ml 311.0 ml Output Total 350 ml 250 ml Balance 208.0 ml -127.0 ml 61.0 ml medications Current Medications Medications Dose Ordered Sig/Cira Route Start Time Stop Time Status Last Admin Dose Admin Dextrose 50 ml UD PRN IV 11/12/24 13:00 Bisacodyl 10 mg DAILYP PRN ID 11/12/24 13:15 Enoxaparin Sodium 40 mg DAILY SC 11/13/24 10:00 UNV Patient Own Medication 1 tab QPM PO 11/12/24 18:00 UNV Patient Own Medication 1 tab BID PO 11/12/24 22:00 UNV Patient Own Medication 2 gm Q8HR IV 11/12/24 14:00 UNV Albuterol 2.5 mg Q4HPRN PRN NEB 11/14/24 12:30 11/17/24 05:44 2.5 MG Ipratropium [place] 0.5 mg Q4HR NEB 11/14/24 14:00 11/17/24 13:47 0.5 MG Propofol 100 ml @ 1.845 mls/ hr Q24H IV 11/14/24 12:45 Midazolam HCl 50 ml @ 1 mls/hr Q24H IV 11/14/24 12:45 11/17/24 01:50 2 MLS/HR Fentanyl Citrate 250 ml @ 2.5 mls/hr Q24H IV 11/14/24 12:45 11/17/24 08:24 15 MLS/HR Norepinephrine Bitartrate 250 ml @ 3.75 mls/hr Q24H IV 11/14/24 13:00 11/14/24 14:22 3.75 MLS/HR Acetaminophen 650 mg Q6HP PRN PO 11/14/24 17:00 Diagnostic Test (Pha) 1 strip Q4HR 11/14/24 22:00 11/17/24 13:08 1 STRIP Insulin Human Lispro Q4HR SC 11/14/24 22:00 11/17/24 13:07 1 UNITS Methylprednisolone Sodium Succinate 40 mg DAILY IV 11/15/24 10:00 11/17/24 08:13 40 MG Atorvastatin Calcium 80 mg HS PO 11/15/24 08:00 11/16/24 21:48 80 MG Clopidogrel Bisulfate 75 mg DAILY PO 11/16/24 10:00 11/17/24 08:13 75 MG Pantoprazole Sodium 40 mg DAILY IV 11/16/24 10:00 11/17/24 08:13 40 MG Enteral Nutritional Formula 1,000 ml 30ML/HR GT 11/16/24 13:30 11/16/24 21:57 1,000 ML Heparin Sodium/ Dextrose 250 ml @ 5 mls/hr Q24H IV 11/16/24 21:00 11/16/24 21:00 5 MLS/HR Cefepime HCl 50 ml @ 12.5 mls/hr DAILY IV 11/18/24 10:00 Examination General: Critically ill, sedated, intubated. HEENT: Pupils equal/reactive; ETT and OGT in place. Neck: No JVD, right IJ central line intact. CVS: S1/S2, regular rate/rhythm, no murmurs. Respiratory: Bilateral breath sounds present, coarse, mild crackles at bases. Abdomen: Soft, mildly distended, non-tender, bowel sounds sluggish. Extremities: No cyanosis; trace bilateral pedal edema. Neuro: Sedated, RASS -3; GCS 3T. Skin: Warm, dry, no rashes or pressure injuries. laboratory and microbiology Laboratory Tests 11/17/24 13:26 11/17/24 07:20 11/17/24 02:00 Test 11/17/24 02:00 Range/Units Serum Glucose 178 H 74-106 mg/dL Microbiology Date/Time Source Procedure Growth Status 11/14/24 17:00 Blood Blood Culture - Preliminary NO GROWTH AFTER 48 HOURS OF INCUBATION. Resulted 11/14/24 14:55 Nose MRSA Screen - Final Complete 11/14/24 14:55 Urine - Catheterized Urine Culture - Final Complete Problem List/Assessment/Plan Problem List/Assessment/Plan Assessment 1. Acute Hypoxic Respiratory Failure on mechanical ventilation secondary to pneumonia AND Super imposed pulmonary edema. on mechanical ventilation, improving gas exchange, transitioning to CPAP trial. 2. Septic Shock likely secondary to MSSA bacteremia/osteomyelitis; on norepinephrine and broad-spectrum antibiotics (Cefepime). 3. 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 4. Acute Kidney Injury (Stage 2) likely multifactorial (sepsis, contrast, low perfusion); GFR 48, Cr 1.52./VMN 5. Metabolic Encephalopathy secondary to sepsis and sedation. 6. Osteomyelitis (MSSA) prior bone biopsy and cultures positive, on cefepime. 7. Type 2 Diabetes Mellitus on insulin sliding scale. 8. Hypertension on hold due to current shock. 9. Dementia baseline per . 10. Hypocalcemia and Hyperphosphatemia due to EREN. 11. Malnutrition / weight loss on tube feeds, dose increased. 12. DNR chemical code only.confirmed with family. 13. Possible Ileus abdominal distension, non-obstructive bowel gas on KUB.Starting Lactulose System-Turcios Plan Neurology * Continue sedation weaning (target RASS -1 to -2). * Daily sedation vacation and neuro checks. * Continue propofol and midazolam titration as needed. Cardiovascular * Continue heparin drip per ACS protocol. * Plavix 75 mg PO daily, Atorvastatin 80 mg PO daily. * No invasive procedures per DNR and family request. * Monitor troponin trend, QTc (avoid prolonging drugs). * Continue telemetry. * Maintain MAP >65 mmHg, off vasopressors. * Strict I&O, daily weights. Respiratory * Continue vent weaning with CPAP trials. * Maintain FiO? ?40%, PEEP 5. * Albuterol and Ipratropium nebs Q4H. * Daily ABG, CXR PRN. * Elevate HOB >30, oral care q4h. * Daily spontaneous breathing trial when stable. Infectious Disease * Continue Cefepime IV q12h (MSSA coverage). * Monitor cultures (blood, sputum, urine). Renal / Fluids / Electrolytes * Maintain MAP >65 to support renal perfusion. * Avoid nephrotoxins (NSAIDs, contrast). * Strict I&O; current urine output adequate (850 mL/24h). * Replace electrolytes (Mg >2, K >4, Ca as needed). * Recheck BMP q8h. G* Continue Glucerna GT feeds, titrate up slowly as tolerated. * Lactulose 20 mL TID * Pantoprazole 40 mg IV daily for stress ulcer prophylaxis. * Add Senna for bowel regulation.I / Nutrition Endocrine * Continue insulin sliding scale; target glucose 342810 mg/dL. * Hold oral hypoglycemics. * Recheck HbA1c when stable. Hematology * Monitor Hgb/Hct daily (8.9 g/dL today). * Transfuse if Hgb <7.0 or symptomatic anemia. * Continue Heparin drip (to be transitioned to Lovenox). Musculoskeletal / ID * Osteomyelitis due to MSSA continue IV antibiotics per ID. * Pain managed with Fentanyl infusion; avoid NSAIDs due to renal status. * Monitor inflammatory markers. Prophylaxis * DVT: Heparin drip (therapeutic). * GI: Pantoprazole 40 mg IV daily. * Pressure Injury: Turn q2h, air mattress. * Aspiration: Elevate HOB >30. Condition / Prognosis * Critical, guarded prognosis. * Multi-organ involvement (cardiac ischemia, septic shock, EREN, respiratory failure). * Continue aggressive supportive care per familys wishes (medical management only). CODE STATUS: CHEMICAL CODE Case discussed in detail with the attending physician, including the clinical presentation, diagnostic workup, and comprehensive management plan. The patients family was updated and expressed understanding of his condition and treatment approach. Critical Care Time Spent: >45 minutes Plan discussed with: Spouse (RN) My Orders My Orders Orders - JULI HIGGINS Procedure Category Date Status Time Heparin Drip/D5w PHA 11/16/24 In Process 100units/Ml 21:00 Heparin Per Pharmacy [facility] 11/17/24 In Process Protocol 03:06 Complete Blood Count LAB 11/18/24 Verified 04:00 Heparin Per Pharmacy [facility] 11/17/24 In Process Protocol 08:28 Cpap Trial For Am ORDERS 11/17/24 Transmitted 11:21 Cpap/Sed Vacation Med ORDERS 11/17/24 Transmitted Weaning 11:21 Date of Service: Nov 17, 2024 Billing Provider: MINI BALDWIN MD Common Visit Codes: [id number] CARE 30-74 MIN JULI HIGGINS RESIDENT Nov 17, 2024 15:08 MINI BALDWIN MD Nov 27, 2024 16:03
--- NOTE | 2024-11-17 19:47 | DVHPN2 ---
Progress Note - Dictate Date Seen: Nov 17, 2024 Medical Necessity Reason Pt with a Central, PICC or Fol: Yes The following are medically ne: Central Line, Balderrama Catheter Subjective Patient was seen and evaluated in follow up in the ICU. Patient is intubated and sedated on ventilator. 30% FiO2. HGB 7.4, HCT 21.8, NA 146, CL108, BUN 59, LEADING FIREFIGHTER 2.05, CA 7.3. Chest x-ray shows bilateral mid to lower lung infiltrates and effusions, stable. vital signs Vital Sign Date Time Temp Pulse Resp B/P (MAP) Pulse Ox O2 Delivery O2 Flow Rate FiO2 11/17/24 18:45 80 19 111/52 (71) 97 11/17/24 18:24 30 11/17/24 18:00 Mechanical Ventilator+ 11/17/24 16:00 99.2 99.2 11/17/24 08:00 0 Total Intake and Output 11/16/24 11/16/24 11/17/24 15:00 23:00 07:00 Intake Total 208.0 ml 223.0 ml 311.0 ml Output Total 350 ml 250 ml Balance 208.0 ml -127.0 ml 61.0 ml medications Current Medications Medications Dose Ordered Sig/Cira Route Start Time Stop Time Status Last Admin Dose Admin Dextrose 50 ml UD PRN IV 11/12/24 13:00 Bisacodyl 10 mg DAILYP PRN HI 11/12/24 13:15 Enoxaparin Sodium 40 mg DAILY SC 11/13/24 10:00 UNV Patient Own Medication 1 tab QPM PO 11/12/24 18:00 UNV Patient Own Medication 1 tab BID PO 11/12/24 22:00 UNV Patient Own Medication 2 gm Q8HR IV 11/12/24 14:00 UNV Albuterol 2.5 mg Q4HPRN PRN NEB 11/14/24 12:30 11/17/24 18:23 2.5 MG Ipratropium [place] 0.5 mg Q4HR NEB 11/14/24 14:00 11/17/24 18:24 0.5 MG Propofol 100 ml @ 1.845 mls/ hr Q24H IV 11/14/24 12:45 Midazolam HCl 50 ml @ 1 mls/hr Q24H IV 11/14/24 12:45 11/17/24 01:50 2 MLS/HR Fentanyl Citrate 250 ml @ 2.5 mls/hr Q24H IV 11/14/24 12:45 11/17/24 08:24 15 MLS/HR Norepinephrine Bitartrate 250 ml @ 3.75 mls/hr Q24H IV 11/14/24 13:00 11/14/24 14:22 3.75 MLS/HR Acetaminophen 650 mg Q6HP PRN PO 11/14/24 17:00 Diagnostic Test (Pha) 1 strip Q4HR 11/14/24 22:00 11/17/24 17:58 1 STRIP Insulin Human Lispro Q4HR SC 11/14/24 22:00 11/17/24 17:58 2 UNITS Methylprednisolone Sodium Succinate 40 mg DAILY IV 11/15/24 10:00 11/17/24 08:13 40 MG Atorvastatin Calcium 80 mg HS PO 11/15/24 08:00 11/16/24 21:48 80 MG Clopidogrel Bisulfate 75 mg DAILY PO 11/16/24 10:00 11/17/24 08:13 75 MG Pantoprazole Sodium 40 mg DAILY IV 11/16/24 10:00 11/17/24 08:13 40 MG Enteral Nutritional Formula 1,000 ml 30ML/HR GT 11/16/24 13:30 11/16/24 21:57 1,000 ML Heparin Sodium/ Dextrose 250 ml @ 5 mls/hr Q24H IV 11/16/24 21:00 11/16/24 21:00 5 MLS/HR Cefepime HCl 50 ml @ 12.5 mls/hr DAILY IV 11/18/24 10:00 objective GENERAL: Intubated on ventilator. EYES: PERRL, EOMI. Anicteric. HENT: Moist mucous membranes. LUNGS: Decreased breath sounds. CARDIOVASCULAR: Regular rate and rhythm. ABDOMEN: Soft, nontender and nondistended. EXTREMITIES: No edema. SKIN: Warm, dry. laboratory and microbiology Laboratory Tests 11/17/24 13:26 11/17/24 07:20 11/17/24 02:00 Test 11/17/24 02:00 Range/Units Serum Glucose 178 H 74-106 mg/dL Problem List NSTEMI, likely type 1. ?Wellens syndrome. Rule out structural heart disease. Hypertension. Pneumonia. Type 2 diabetes mellitus. Acute kidney injury. History of tobacco use. Possible early-onset dementia. Assessment/Plan Continued all current supportive medical care. Lipitor, Plavix. IV antibiotics as ordered. Heparin drip per pharmacy. Vasopressors for hemodynamic support. GI prophylactics. Additional plan as per the hospital course. Critical care time of 45 minutes provided to include time spent evaluation of patient at bedside, when appropriate patient/family education for diagnosis, treatment plan, review of pertinent medical information and discussion of care with specialty providers and PCP. Mechanical ventilator parameters, treatment and adjustments have personally been reviewed by me and treatment plan by side panel padder has also been reviewed. Dietary Evaluation Review Comments: 1) Increase Glucerna 1.2 to 50 mL/hr goal rate as tolerated. Goal rate will provide 1440 kcals, 72g Pro, and 966 mL free H2O per 24 hrs. TF regimen will meet ~93% estimated energy needs and ~73% estimated protein needs 2) Advance to 45g CCHO 2g Na diet when medically feasible, pending ST approval 3) Refer to outpatient RD/CDCES for diabetes education 4) Follow-up with cardiology, pulmonology, and nephrology 5) Continue to monitor I&O, labs, and skin integrity Expected Outcomes/Goals: 1) nutrition support to provide at least 75% estimated daily needs 2) labs and wound to improve 3) diet to advance 4) f/u in 2-3 days Plan discussed with: ANJU Shah MD Nov 17, 2024 19:12
[2024-11-18] VITALS (102 sets, daily range): BP systolic 80–169; BP diastolic 38–97; PULSE 52–137; RESP 12–33; TEMP 96.7–97.8; O2SAT 93–100
[2024-11-18 04:28] LABS: Hematocrit 22.6 % (41.0-53.0); Hemoglobin 7.5 g/dL (13.5-17.5); Mean Corpuscular Hemoglobin 27.9 pg (28.0-32.0); Mean Corpuscular Volume 84.4 fL (80.0-100.0); Nucleated Red Blood Cells % 0.0 %
[2024-11-18] MEDS: DEXMEDETOMIDINE HCL IN D5W 100 ML IV SCH (04:53)
[2024-11-18 05:01] LABS: INR 1.11 (0.9-1.15); Partial Thromboplastin Time 55.5 SEC (24.5-34.5); Prothrombin Time 11.6 sec (9.3-11.8)
[2024-11-18 05:03] LABS: Alkaline Phosphatase 68 U/L (46-116); Anion Gap 11 (5-15); BUN/Creatinine Ratio 30.2 (10.0-20.0); Carbon Dioxide 26 mmol/L (20-31); Magnesium 2.5 mg/dL (1.6-2.6); Potassium 3.8 mmol/L (3.5-5.1); Total Protein 6.2 g/dL (5.7-8.2)
[2024-11-18 05:13] LABS: Alanine Aminotransferase < 9 U/L (7-40); Albumin 2.9 g/dL (3.2-4.8); Bilirubin, Total 0.2 mg/dL (0.2-1.0); Blood Urea Nitrogen 68 mg/dL (9-23); Calcium 6.7 mg/dL (8.7-10.4); Chloride 110 mmol/L (98-107); Glucose 164 mg/dL (74-106); Sodium 147 mmol/L (136-145)
[2024-11-18] MEDS: CALCIUM GLUC 1,000mg/50ml-NS 50 ML IV SCH (05:56)
--- NOTE | 2024-11-18 06:30 | DVH ---
CHEST RADIOGRAPH Indication: aCUTE HYPOXIC RESPIRATORY FAILURE Technique: Single frontal view of the chest was obtained COMPARISON: XY CHEST PORTABLE on DOS: 11/17/24, XY CHEST XRAY 1 VIEW on DOS: 11/16/24, XY CHEST XRAY 1 VIEW on DOS: 11/15/24, XY CHEST XRAY 1 VIEW on DOS: 11/14/24, XY CHEST PORTABLE on DOS: 11/14/24 FINDINGS: Lines and Tubes: Endotracheal tube is slightly low in position. Recommend retraction by 1 cm. Right c entral venous catheter and enteric catheter in satisfactory position. Lungs: Unchanged multifocal airspace disease. Pleura: No effusion. No pneumothorax. Cardiomediastinal contours: Unremarkable. Bones: Unremarkable. IMPRESSION: Endotracheal tube is slightly low in position. Recommend retraction by 1 cm.
[2024-11-18 07:40] LABS: Base Excess -1.4 mmol/L (-2.0-3.0)
[2024-11-18] MEDS: CEFEPIME 2GM/50ML NS 50 ML IV SCH (09:57)
--- NOTE | 2024-11-18 10:47 | DVHSR ---
APPROVED REPORT EXAM: Two-dimensional and M-mode echocardiogram with Doppler and color Doppler. Blood Pressure: 106/67 mmHg INDICATION SHOCK RISK FACTORS Height: 67, Weight: 135 DIMENSIONS LVDd5.2 (3.8-5.7cm)LA (2D)4.2 (1.9-4.0cm)Aortic Root3.4 (2.0-3.7cm) LVDs4.3 (2.5-4.0cm)LA (MM) (1.9-4.0cm)Aortic Cusp Exc1.3 (1.5-2.0cm) EF (%) 35.0 (55-70%)Rt. Atrium (1.9-4.0cm)Asc. Aorta cm Mitral Valve MitralMitral Stenosis E wave0.78m/sMV Mean GR.mmHg A wave0.95m/sMV Peak GR.41mmHg E/A ratio0.82D MVAcm2 DECEL [id number] 1/2 Timems Aortic Valve Aortic ValveAortic Stenosis V10.67m/Lorena Mean GR.3mmHg V21.15m/Lorena Peak GR.5mmHg LVOT Diameter2.4 (1.8-2.4cm)Doppler AVA2.63cm2 Other Information Technically limited study due to patient on a vent. Conclusion lvef 30% severe global dysfunction dilated LV RV dysfunction, RV enlarged left atrium significant enlargement dilated IVC no severe valve abnormalities noted, limited study moderate MAC, mild mitral stenosis
[2024-11-18] MEDS: D5W/SOD CHL 0.45% 1,000 ML IV SCH (12:45)
--- NOTE | 2024-11-18 14:31 | DVH ---
INDICATION: EREN TECHNIQUE: Multiple real-time sonographic images of the kidneys and bladder were obtained. COMPARISON: XY KUB ABDOMEN SINGLE VIEW on DOS: 11/16/24, CT CT AB PEL WO CON-NO ORAL OR IV on DOS: 10/15/24 FINDINGS: RIGHT kidney measures 11.5 cm in length. No hydronephrosis. LEFT kidney measures 11.2 cm in length. No hydronephrosis. No large intraluminal masses are seen in the bladder. IMPRESSION: 1. Unremarkable examination.
--- NOTE | 2024-11-18 15:16 | DVHCONRES ---
Date Seen: Nov 18, 2024 Resident Creating Document: HARSHAD DURAN RESIDENT Referring Physician resident Hiram Reason for Consultation Cardiorenal syndrome History of Present Illness This is a 74-year-old male with history of type 2 diabetes mellitus, hypertension, dementia, chronic back pain, GERD, hiatal hernia, and diverticulosis, admitted 11/12 for back pain, chest pain, weakness, and falls. Initially was on telemetry, then rapid response called on 11/14 for acute respiratory distress with hypoxia; patient was intubated and transferred to ICU. Patient was seen and examined on the bedside. He is on mechanical ventilation with FiO2 30%, tidal volume 400 mL, peep 5, respiratory rate 18. Of pressors, and on Versed 2, fentanyl 275. Past Medical History Type 2 diabetes mellitus, hypertension, dementia, chronic back pain, GERD, hiatal hernia, and diverticulosis Past Surgical History Unknown Allergies: Coded Allergies: Aspirin (Verified Allergy, Unknown, 11/12/24) Doxycycline (Verified Allergy, Unknown, 11/12/24) Penicillins (Verified Allergy, Unknown, 10/28/24) Home Meds Reported Medications Cefazolin Sodium (Cefazolin) 2 Gm Inj, 2 GM IV Q8HR, INJ 11/12/24 Enoxaparin Sodium (Enoxaparin Sodium) 80 Mg/0.8 Ml Inj, 40 MG SC DAILY, INJ 11/12/24 Empagliflozin (Jardiance) 25 Mg Tab, 25 MG PO DAILY, TAB 11/12/24 Senna (Senna) 8.6 Mg Tab, 17.2 MG PO DAILY, TAB 11/12/24 Atorvastatin Calcium (ATORVASTATIN CALCIUM) 40 Mg Tab, 1 TAB PO QPM, #90 TAB 3 Refills 11/12/24 Lidocaine (LIDODERM 5% TOPICAL PATCH) 1 Patch Ph, 1 PATCH TOP DAILY, #30 PATCH 1 Refill 11/12/24 Bisacodyl (Dulcolax) 10 Mg Sup, 10 MG RE DAILYP PRN, SUPP 11/12/24 Duloxetine HCl (Duloxetine HCl) 30 Mg Cap, 90 MG PO DAILY, CAP 11/12/24 Hydromorphone Hcl (Dilaudid) 2 Mg Tab, 2 TAB PO QIDP, #120 TAB 11/12/24 Hydromorphone Hcl (Dilaudid) 2 Mg Tab, 1 TAB PO Q4HP PRN, #90 TAB 10/7/25 Pantoprazole Sodium Sesquihydr (Pantoprazole Sodium) 40 Mg Tab, 1 TAB PO BID 11/12/24 Insulin Lispro Protamine & Lis (Humalog Mix 75/25 Kwikpen) 75 Mg/25 Kwp Inj, 15 UNIT SC BID 11/12/24 Trazodone Hcl (Trazodone Hcl) 50 Mg Tab, 0.5 TAB PO QHSP PRN 11/12/24 Carvedilol (Carvedilol) 6.25 Mg Tab, 1 TAB PO BID 11/12/24 Current Medications Current Medications Medications (Trade) Dose Ordered Sig/Cira Route PRN Reason Start Time Stop Time Status Last Admin Cefepime HCl 50 ml @ 12.5 mls/hr DAILY IV 11/18/24 10:00 11/18/24 09:57 Calcium Gluconate/ Sodium Chloride 50 ml @ 100 mls/hr Q30M IV 11/18/24 05:45 11/18/24 06:44 DC 11/18/24 06:15 Dextrose/Sodium Chloride 1,000 ml @ 75 mls/hr [id number] IV 11/18/24 11:30 11/18/24 12:45 Review of Systems Could not be assessed as patient is intubated and on mechanical ventilation Vital Signs Vital Signs Date Time Temp Pulse Resp B/P (MAP) Pulse Ox O2 Delivery O2 Flow Rate FiO2 11/18/24 13:34 73 18 112/47 (68) 96 30 11/18/24 12:00 97.0 97.0 11/18/24 10:00 Mechanical Ventilator+ 11/17/24 20:00 0 Physical Exam General: RASS -1, afebrile, mucosae are moist Cardiovascular: Normal S1 and S2. No murmurs, gallops or rubs Respiratory: Mechanically assisted ventilation, equal bilateral airway entree. bilateral crackles Abdomen: Soft, nontender, no organomegaly, normal bowel sounds MSK/skin: Mobilization of limbs cannot be evaluated. Skin is dry and warm. Neurological: Orientation cannot be assessed. No apparent motor no sensitive deficits. Pupils are isocoric and reactive Labs/Diagnostic Data Labs Test 11/18/24 10:02 11/18/24 07:27 11/18/24 03:45 11/15/24 12:55 Range/Units POC Glucose 167 H 70-106 mg/dl Blood Gas Specimen Type Arterial Blood Gas Sample Site Left radial Blood Gas Patient Temperature 37.0 Arterial Blood Date Drawn [id number] Arterial Blood pH 7.385 7.350-7.450 Arterial Blood Partial Pressure CO2 40.2 35.0-48.0 mmHg Arterial Blood Partial Pressure O2 97.0 83.0-108.0 mmHg Arterial Blood HCO3 23.5 21.0-28.0 mmol/L Arterial Blood Oxygen Saturation 96.1 94.0-98.0 % Arterial Blood Base Excess -1.4 -2.0-3.0 mmol/L Arterial Blood Oxyhemoglobin 95.5 94.0-98.0 % Arterial Blood Carboxyhemoglobin 0.3 L 0.5-1.5 % Arterial Blood Methemoglobin 0.3 0.0-1.5 % Huan Test Modified Blood Gas Total Hemoglobin 10.70 L 13.5-17.5 g/dL Blood Gas Set Respiration Rate 18.0 Blood Gas Modality Vent - ac FiO2 % 30.0 Blood Gas Tidal Volume 400.0 Blood Gas PEEP or CPAP 5.0 White Blood Count 7.6 4.4-10.8 10^3/uL Red Blood Count 2.68 L 4.5-5.90 10^6/uL Hemoglobin 7.5 L 13.5-17.5 g/dL Hematocrit 22.6 L 41.0-53.0 % Mean Corpuscular Volume 84.4 80.0-100.0 fL Mean Corpuscular Hemoglobin 27.9 L 28.0-32.0 pg Mean Corpuscular Hemoglobin Concent 33.1 32.0-36.0 g/dL Red Cell Distribution Width 15.0 H 11.8-14.3 % Platelet Count 369 140-450 10^3/uL Mean Platelet Volume 7.6 6.9-10.8 fL Neutrophils (%) (Auto) 64.5 37.0-80.0 % Lymphocytes (%) (Auto) 19.5 10.0-50.0 % Monocytes (%) (Auto) 15.9 H 0.0-12.0 % Eosinophils (%) (Auto) 0.0 0.0-7.0 % Basophils (%) (Auto) 0.1 0.0-2.0 % Neutrophils # (Auto) 4.9 1.6-8.6 10 ^3/uL Lymphocytes # (Auto) 1.5 0.4-5.4 10 ^3/uL Monocytes # (Auto) 1.2 0-1.3 10 ^3/uL Eosinophils # (Auto) 0 0-0.8 10 ^3/uL Basophils # (Auto) 0 0-0.2 10 ^3/uL Nucleated Red Blood Cells 0.0 % Prothrombin Time 11.6 9.3-11.8 sec Prothrombin Time INR 1.11 0.9-1.15 Activated Partial Thromboplast Time 55.5 H 24.5-34.5 SEC Sodium Level 147 H 136-145 mmol/L Potassium Level 3.8 3.5-5.1 mmol/L Chloride Level 110 H 98-107 mmol/L Carbon Dioxide Level 26 20-31 mmol/L Anion Gap 11 5-15 Blood Urea Nitrogen 68 H 9-23 mg/dL Creatinine 2.25 H 0.700-1.30 mg/dL Glomerular Filtration Rate Calc 30 >90 mL/min BUN/Creatinine Ratio 30.2 H 10.0-20.0 Serum Glucose 164 H 74-106 mg/dL Calcium Level 6.7 L 8.7-10.4 mg/dL Magnesium Level 2.5 1.6-2.6 mg/dL Total Bilirubin 0.2 0.2-1.0 mg/dL Aspartate Amino Transferase (AST) 16 13-40 U/L Alanine Aminotransferase (ALT) < 9 7-40 U/L Alkaline Phosphatase 68 46-116 U/L Total Protein 6.2 5.7-8.2 g/dL Albumin 2.9 L 3.2-4.8 g/dL Troponin I High Sensitivity 437 *H </=54 ng/L Test 11/15/24 09:17 11/15/24 03:30 11/14/24 14:55 11/14/24 12:20 Range/Units Hemoglobin A1c 8.3 H <5.7 % A1C B-Type Natriuretic Peptide 1233.51 0-100 pg/mL Triglycerides Level 151 H < 150 mg/dL Cholesterol Level 126 < 200 mg/dL LDL Cholesterol 73 < 100 mg/dL HDL Cholesterol 26 L 40-59 mg/dL Thyroid Stimulating Hormone (TSH) 1.78 0.55-4.78 uIU/mL Lactic Acid Level 0.7 0.4-2.0 mmol/L Phosphorus Level 5.7 H 2.4-5.1 mg/dL Urine Color Light-yellow Yellow Urine Clarity Clear Clear Urine pH 6.0 5.0-9.0 Urine Specific [place] 1.016 1.001-1.035 Urine Protein 2+ H Negative Urine Ketones 1+ H Negative Urine Blood 3+ H Negative /uL Urine Nitrite Negative Negative Urine Bilirubin Negative Negative Urine Urobilinogen Normal Negative mg/dL Urine Leukocyte Esterase Negative Negative /uL Urine RBC 174 0 - 3 /hpf Urine Microscopic WBC 6 H 0-3 /HPF Urine Squamous Epithelial Cells None seen <5 /hpf Urine Bacteria None seen None Seen /hpf Urine Mucus Few None Seen Urine Glucose 4+ H Normal mg/dL Urine Opiates Screen Neg NEGATIVE Urine Fentanyl Screen Neg NEGATIVE Urine Barbiturates Screen Neg NEGATIVE Urine Phencyclidine Screen Neg NEGATIVE Urine Amphetamines Screen Neg NEGATIVE Urine Benzodiazepines Screen Neg NEGATIVE Urine Cocaine Screen Neg NEGATIVE Urine Cannabinoids Screen Neg NEGATIVE D-Dimer, Quantitative 3.13 H 0.0-0.49 mg/L FEU Test 11/14/24 12:18 Range/Units Blood Gas Liter Flow 15.00 Blood Gas Critical Value Read Back Yes Blood Gas Notified Whom Dr. dejuan bryson Blood Gas Notified Time [id number] Blood Gas Notified By Microbiology Date/Time Source Procedure Growth Status 11/14/24 17:00 Blood Blood Culture - Preliminary NO GROWTH AFTER 72 HOURS OF INCUBATION. Resulted 11/14/24 14:55 Nose MRSA Screen - Final Complete 11/14/24 14:55 Urine - Catheterized Urine Culture - Final Complete Assessment Assessment and plan: # EREN in the setting of sepsis and septic shock likely prerenal, hemodynamically mediated # Sepsis due to bilateral multifocal pneumonia, likely Gram-positive/Gram- negative # Hypernatremia # Hyperphosphatemia # Acute hypoxic respiratory failure # Acute on chronic systolic heart failure with reduced ejection fraction # pulmonary edema due to above # possible NSTEMI type 1 # Type 2 diabetes mellitus with a hemoglobin A1c 8.3 Plan: - Ordered urine sodium, creatinine and protein creatinine ratio to calculate FENA - Kidney ultrasound revealed normal study - Free water deficit 1.6L - IV D5 with 0.45 NS at 75 mL/hours - 24 hours urine output is 975 mL - continue IV antibiotic, heparin drip and other management as per primary - Appreciate cardiology consultation - Continue insulin lispro sliding scale q.4 hours - Strict I&O - Avoid nephrotoxic medication - Monitor BMP Thank you so much for the opportunity to consult on your patient. Nephro team will follow the patient. In case of any questions or concerns please feel free to reach out. Plan discussed with Dr. Arthur . The patient and caregiver team agreed to the plan. Addendum Patient seen and examined, plan discussed with resident. Agree with above, we will follow closely Plan discussed with: Other (RN) HARSHAD DURAN RESIDENT Nov 18, 2024 15:16 SALVADOR ATRHUR MD Nov 18, 2024 21:19
--- NOTE | 2024-11-18 17:26 | DVHPNRES ---
Progress Note Date Seen: Nov 18, 2024 Resident Creating Document: JULI HIGGINS RESIDENT Has the PT tested + for MRSA If YES, has PT been informed?: No Medical Necessity Reason Pt with a Central, PICC or Fol: Yes The following are medically ne: Central Line, Balderrama Catheter Subjective Review of Systems Today, the patient is hemodynamically stable with blood pressure 112/47, heart rate 73, respiratory rate 18, and oxygen saturation 96 percent on ventilator. He remains sedated on dexmedetomidine, midazolam, and fentanyl infusions. Weaning trials and CPAP trials are ongoing to assess readiness for extubation. Urine output in the last 24 hours was 975 mL per nephrology evaluation. Free water deficit calculated at 1.6 liters. Nephrology recommended initiation of IV D5W with 0.45% NS at 75 mL/hr for hydration support. Patient remains on heparin drip for NSTEMI type 1 and on cefepime IV for infection prophylaxis. Laboratory data show hemoglobin 7.5 (stable), WBC 7.6 (normal), platelets 369 (normal). Creatinine has worsened to 2.25 from 2.05, with GFR decreased to 30. Sodium elevated at 147, BUN elevated, consistent with worsening EREN. Renal ultrasound unremarkable, no evidence of obstruction. Chest X-ray today reveals unchanged multifocal bilateral airspace disease without new pleural effusion or pneumothorax. The patient continues under close monitoring with conservative medical management per family wishes. Family ( and son) updated at bedside. Patient remains DNR (chemical code only). REVIEW OF SYSTEMS (limited due to sedation) General: Intubated, sedated, critically ill. Respiratory: Mechanically ventilated, coarse bilateral breath sounds. Cardiac: Hemodynamically stable, no arrhythmia noted. GI: Receiving tube feeding, mild abdominal distension. : Balderrama catheter in place, urine output adequate but trending low. Neuro: Sedated, RASS -2. Skin: Intact, no rashes or ulcers. Objective vital signs Vital Sign Date Time Temp Pulse Resp B/P (MAP) Pulse Ox O2 Delivery O2 Flow Rate FiO2 11/18/24 16:00 79 11/18/24 15:31 133/66 11/18/24 15:15 18 96 30 11/18/24 12:00 97.0 97.0 11/18/24 10:00 Mechanical Ventilator+ 11/17/24 20:00 0 Total Intake and Output 11/17/24 11/17/2411/18/25 15:00 23:00 07:00 Intake Total 223.5 ml 292 ml 283.21 ml Output Total 300 ml 550 ml Balance 223.5 ml -8 ml -266.79 ml medications Current Medications Medications Dose Ordered Sig/Cira Route Start Time Stop Time Status Last Admin Dose Admin Dextrose 50 ml UD PRN IV 11/12/24 13:00 Bisacodyl 10 mg DAILYP PRN ME 11/12/24 13:15 Enoxaparin Sodium 40 mg DAILY SC 11/13/24 10:00 UNV Patient Own Medication 1 tab QPM PO 11/12/24 18:00 UNV Patient Own Medication 1 tab BID PO 11/12/24 22:00 UNV Patient Own Medication 2 gm Q8HR IV 11/12/24 14:00 UNV Albuterol 2.5 mg Q4HPRN PRN NEB 11/14/24 12:30 11/18/24 13:34 2.5 MG Ipratropium [place] 0.5 mg Q4HR NEB 11/14/24 14:00 11/18/24 13:34 0.5 MG Propofol 100 ml @ 1.845 mls/ hr Q24H IV 11/14/24 12:45 Midazolam HCl 50 ml @ 1 mls/hr Q24H IV 11/14/24 12:45 11/18/24 15:31 1 MLS/HR Fentanyl Citrate 250 ml @ 2.5 mls/hr Q24H IV 11/14/24 12:45 11/18/24 15:31 27.5 MLS/HR Norepinephrine Bitartrate 250 ml @ 3.75 mls/hr Q24H IV 11/14/24 13:00 11/14/24 14:22 3.75 MLS/HR Acetaminophen 650 mg Q6HP PRN PO 11/14/24 17:00 Diagnostic Test (Pha) 1 strip Q4HR 11/14/24 22:00 11/18/24 14:03 1 STRIP Insulin Human Lispro Q4HR SC 11/14/24 22:00 11/18/24 15:29 3 UNITS Methylprednisolone Sodium Succinate 40 mg DAILY IV 11/15/24 10:00 11/18/24 10:07 40 MG Atorvastatin Calcium 80 mg HS PO 11/15/24 08:00 11/17/24 21:47 80 MG Clopidogrel Bisulfate 75 mg DAILY PO 11/16/24 10:00 11/18/24 09:56 75 MG Pantoprazole Sodium 40 mg DAILY IV 11/16/24 10:00 11/18/24 09:55 40 MG Enteral Nutritional Formula 1,000 ml 30ML/HR GT 11/16/24 13:30 11/16/24 21:57 1,000 ML Heparin Sodium/ Dextrose 250 ml @ 5 mls/hr Q24H IV 11/16/24 21:00 11/16/24 21:00 5 MLS/HR Cefepime HCl 50 ml @ 12.5 mls/hr DAILY IV 11/18/24 10:00 11/18/24 09:57 12.5 MLS/HR Dextrose/Sodium Chloride 1,000 ml @ 75 mls/hr [id number] IV 11/18/24 11:30 11/18/24 12:45 75 MLS/HR Examination General: Sedated, intubated, critically ill. HEENT: Pupils equal and reactive. Endotracheal and orogastric tubes in place. Neck: No jugular venous distension. Right internal jugular central line clean and intact. Cardiac: Regular rate and rhythm. S1 and S2 normal. No murmurs. Respiratory: Coarse breath sounds bilaterally, diminished at bases. Ventilator- assisted breathing. Abdomen: Soft, mildly distended, non-tender. Bowel sounds hypoactive. Extremities: Pulses palpable. Neuro: Sedated, no focal deficits can be assessed. Skin: No rash, ulcer, or erythema. laboratory and microbiology Laboratory Tests 11/18/24 03:45 Test 11/18/24 03:45 Range/Units Serum Glucose 164 H 74-106 mg/dL Microbiology Date/Time Source Procedure Growth Status 11/14/24 17:00 Blood Blood Culture - Preliminary NO GROWTH AFTER 72 HOURS OF INCUBATION. Resulted 11/14/24 14:55 Nose MRSA Screen - Final Complete 11/14/24 14:55 Urine - Catheterized Urine Culture - Final Complete Problem List/Assessment/Plan Problem List/Assessment/Plan Assessment 1. Acute Hypoxic Respiratory Failure on mechanical ventilation secondary to pneumonia AND Super imposed pulmonary edema. on mechanical ventilation, improving gas exchange, transitioning to CPAP trial. 2. Septic Shock likely secondary to MSSA bacteremia/osteomyelitis; on norepinephrine and broad-spectrum antibiotics (Cefepime). 3. 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 4. Acute Kidney Injury (Stage 2) likely multifactorial (sepsis, contrast, low perfusion); GFR 48, Cr 1.52./VMN 5. Metabolic Encephalopathy secondary to sepsis and sedation. 6. Osteomyelitis (MSSA) prior bone biopsy and cultures positive, on cefepime. 7. Type 2 Diabetes Mellitus on insulin sliding scale. 8. Hypertension on hold due to current shock. 9. Dementia baseline per . 10. Hypocalcemia and Hyperphosphatemia due to EREN. 11. Malnutrition / weight loss on tube feeds, dose increased. 12. DNR chemical code only.confirmed with family. 13. Possible Ileus abdominal distension, non-obstructive bowel gas on KUB.Starting Lactulose System-[place] Plan Neurology Continue sedation with dexmedetomidine, midazolam, and fentanyl titrated to RASS -1 to -2. Daily sedation holiday and neuro checks. Cardiovascular * Continue heparin drip per ACS protocol. * Plavix 75 mg PO daily, Atorvastatin 80 mg PO daily. * No invasive procedures per DNR and family request. * Monitor troponin trend, QTc (avoid prolonging drugs). * Continue telemetry. * Maintain MAP >65 mmHg, off vasopressors. * Strict I&O, daily weights. Respiratory * Continue vent weaning with CPAP trials. * Maintain FiO? ?40%, PEEP 5. * Albuterol and Ipratropium nebs Q4H. * Daily ABG, CXR PRN. * Elevate HOB >30, oral care q4h. * Daily spontaneous breathing trial when stable. Infectious Disease * Continue Cefepime IV q12h (MSSA coverage). * Monitor cultures (blood, sputum, urine). Renal / Fluids / Electrolytes * Maintain MAP >65 to support renal perfusion. * Avoid nephrotoxins (NSAIDs, contrast). * Strict I&O; current urine output adequate (850 mL/24h). * Replace electrolytes (Mg >2, K >4, Ca as needed). * Recheck BMP q8h. G* Continue Glucerna GT feeds, titrate up slowly as tolerated. * Lactulose 20 mL TID * Pantoprazole 40 mg IV daily for stress ulcer prophylaxis. * Add Senna for bowel regulation.I / Nutrition Endocrine * Continue insulin sliding scale; target glucose 039012 mg/dL. * Hold oral hypoglycemics. * Recheck HbA1c when stable. Hematology * Monitor Hgb/Hct daily (8.9 g/dL today). * Transfuse if Hgb <7.0 or symptomatic anemia. * Continue Heparin drip (to be transitioned to Lovenox). Musculoskeletal / ID * Osteomyelitis due to MSSA continue IV antibiotics per ID. * Pain managed with Fentanyl infusion; avoid NSAIDs due to renal status. * Monitor inflammatory markers. Prophylaxis * DVT: Heparin drip (therapeutic). * GI: Pantoprazole 40 mg IV daily. * Pressure Injury: Turn q2h, air mattress. * Aspiration: Elevate HOB >30. Condition / Prognosis * Critical, guarded prognosis. * Multi-organ involvement (cardiac ischemia, septic shock, EREN, respiratory failure). * Continue aggressive supportive care per familys wishes (medical management only). CODE STATUS: CHEMICAL CODE Case discussed in detail with the attending physician, including the clinical presentation, diagnostic workup, and comprehensive management plan. The patients family was updated and expressed understanding of his condition and treatment approach. Critical Care Time Spent: >45 minutes Plan discussed with: Spouse, Son My Orders My Orders Orders - JULI HIGGINS RESIDENT Procedure Category Date Status Time * Receivable Manager CONS 11/18/24 Transmitted Consult [facility]PTT LAB 11/19/24 Verified 04:00 *Dr. [facility] CONS 11/18/24 Transmitted -[place] 08:36 Complete Blood Count LAB 11/19/24 Verified 04:00 Heparin Per Pharmacy [facility] 11/18/24 In Process Protocol 08:44 Chest Xray 1 View XY 11/19/24 Verified 04:00 Abg W/ Co-Ox RT 11/19/24 Verified 04:00 Dietary Evaluation Review Comments: 1) Increase Glucerna 1.2 to 50 mL/hr goal rate as tolerated. Goal rate will provide 1440 kcals, 72g Pro, and 966 mL free H2O per 24 hrs. TF regimen will meet ~93% estimated energy needs and ~73% estimated protein needs 2) Advance to 45g CCHO 2g Na diet when medically feasible, pending ST approval 3) Refer to outpatient RD/[facility] for diabetes education 4) Follow-up with cardiology, pulmonology, and nephrology 5) Continue to monitor I&O, labs, and skin integrity Expected Outcomes/Goals: 1) nutrition support to provide at least 75% estimated daily needs 2) labs and wound to improve 3) diet to advance 4) f/u in 2-3 days Date of Service: Nov 18, 2024 Billing Provider: MINI BALDWIN MD Common Visit Codes: [id number] CARE 30-74 MIN JULI HIGGINS RESIDENT Nov 18, 2024 17:26 MINI BALDWIN MD Nov 27, 2024 16:04
--- NOTE | 2024-11-18 22:56 | DVHPN2 ---
Progress Note - Dictate Date Seen: Nov 18, 2024 Has the PT tested + for MRSA If YES, has PT been informed?: No Medical Necessity Reason Pt with a Central, PICC or Fol: Yes The following are medically ne: Central Line, Balderrama Catheter Subjective Patient was seen and evaluated in follow up in the ICU. Patient is intubated and sedated on ventilator. 30% FiO2. Patient remains on heparin drip. Chest x-ray today reveals unchanged multifocal bilateral airspace disease without new pleural effusion or pneumothorax. Renal US is WNL. HGB 7.5. HCT 22.6. vital signs Vital Sign Date Time Temp Pulse Resp B/P (MAP) Pulse Ox O2 Delivery O2 Flow Rate FiO2 11/18/24 22:17 64 18 115/49 (71) 100 30 11/18/24 20:00 96.7 96.7 11/18/24 18:00 Mechanical Ventilator+ 11/18/24 08:00 0 Total Intake and Output 11/17/24 11/17/24 11/18/24 15:00 23:00 07:00 Intake Total 223.5 ml 292 ml 283.21 ml Output Total 300 ml 550 ml Balance 223.5 ml -8 ml -266.79 ml medications Current Medications Medications Dose Ordered Sig/Cira Route Start Time Stop Time Status Last Admin Dose Admin Dextrose 50 ml UD PRN IV 11/12/24 13:00 Bisacodyl 10 mg DAILYP PRN SC 11/12/24 13:15 Enoxaparin Sodium 40 mg DAILY SC 11/13/24 10:00 UNV Patient Own Medication 1 tab QPM PO 11/12/24 18:00 UNV Patient Own Medication 1 tab BID PO 11/12/24 22:00 UNV Patient Own Medication 2 gm Q8HR IV 11/12/24 14:00 UNV Albuterol 2.5 mg Q4HPRN PRN NEB 11/14/24 12:30 11/18/24 22:17 2.5 MG Ipratropium [place] 0.5 mg Q4HR NEB 11/14/24 14:00 11/18/24 22:17 0.5 MG Propofol 100 ml @ 1.845 mls/ hr Q24H IV 11/14/24 12:45 Midazolam HCl 50 ml @ 1 mls/hr Q24H IV 11/14/24 12:45 11/18/24 22:00 2 MLS/HR Fentanyl Citrate 250 ml @ 2.5 mls/hr Q24H IV 11/14/24 12:45 11/18/24 22:03 30 MLS/HR Norepinephrine Bitartrate 250 ml @ 3.75 mls/hr Q24H IV 11/14/24 13:00 11/14/24 14:22 3.75 MLS/HR Acetaminophen 650 mg Q6HP PRN PO 11/14/24 17:00 Diagnostic Test (Pha) 1 strip Q4HR 11/14/24 22:00 11/18/24 22:04 1 STRIP Insulin Human Lispro Q4HR SC 11/14/24 22:00 11/18/24 22:09 3 UNITS Methylprednisolone Sodium Succinate 40 mg DAILY IV 11/15/24 10:00 11/18/24 10:07 40 MG Atorvastatin Calcium 80 mg HS PO 11/15/24 08:00 11/18/24 21:59 80 MG Clopidogrel Bisulfate 75 mg DAILY PO 11/16/24 10:00 11/18/24 09:56 75 MG Pantoprazole Sodium 40 mg DAILY IV 11/16/24 10:00 11/18/24 09:55 40 MG Enteral Nutritional Formula 1,000 ml 30ML/HR GT 11/16/24 13:30 11/16/24 21:57 1,000 ML Heparin Sodium/ Dextrose 250 ml @ 5 mls/hr Q24H IV 11/16/24 21:00 11/18/24 20:38 5 MLS/HR Cefepime HCl 50 ml @ 12.5 mls/hr DAILY IV 11/18/24 10:00 11/18/24 09:57 12.5 MLS/HR Dextrose/Sodium Chloride 1,000 ml @ 75 mls/hr [id number] IV 11/18/24 11:30 11/18/24 12:45 75 MLS/HR objective GENERAL: Intubated on ventilator. EYES: PERRL, EOMI. Anicteric. HENT: Moist mucous membranes. LUNGS: Decreased breath sounds. CARDIOVASCULAR: Regular rate and rhythm. ABDOMEN: Soft, nontender and nondistended. EXTREMITIES: No edema. SKIN: Warm, dry. laboratory and microbiology Laboratory Tests 11/18/24 03:45 Test 11/18/24 03:45 Range/Units Serum Glucose 164 H 74-106 mg/dL Problem List NSTEMI, likely type 1. ?Wellens syndrome. Rule out structural heart disease. Hypertension. Pneumonia. Type 2 diabetes mellitus. Acute kidney injury. History of tobacco use. Possible early-onset dementia. Assessment/Plan Continued all current supportive medical care. Lipitor, Plavix. IV antibiotics as ordered. Heparin drip per pharmacy. Vasopressors for hemodynamic support. GI prophylactics. Additional plan as per the hospital course. Critical care time of 45 minutes provided to include time spent evaluation of patient at bedside, when appropriate patient/family education for diagnosis, treatment plan, review of pertinent medical information and discussion of care with specialty providers and PCP. Mechanical ventilator parameters, treatment and adjustments have personally been reviewed by me and treatment plan by cloud infrastructure architect has also been reviewed. Dietary Evaluation Review Comments: 1) Increase Glucerna 1.2 to 50 mL/hr goal rate as tolerated. Goal rate will provide 1440 kcals, 72g Pro, and 966 mL free H2O per 24 hrs. TF regimen will meet ~93% estimated energy needs and ~73% estimated protein needs 2) Advance to 45g CCHO 2g Na diet when medically feasible, pending ST approval 3) Refer to outpatient RD/[facility] for diabetes education 4) Follow-up with cardiology, pulmonology, and nephrology 5) Continue to monitor I&O, labs, and skin integrity Expected Outcomes/Goals: 1) nutrition support to provide at least 75% estimated daily needs 2) labs and wound to improve 3) diet to advance 4) f/u in 2-3 days Plan discussed with: Other ANJU ZAMORA MD Nov 18, 2024 22:56
[2024-11-19] VITALS (103 sets, daily range): BP systolic 73–178; BP diastolic 35–108; PULSE 54–194; RESP 13–32; TEMP 96.6–99.1; O2SAT 91–100
[2024-11-19 04:09] LABS: Potassium 3.6 mmol/L (3.5-5.1)
[2024-11-19 04:10] LABS: Anion Gap 11 (5-15); Carbon Dioxide 26 mmol/L (20-31)
[2024-11-19 04:14] LABS: Hematocrit 20.9 % (41.0-53.0); Nucleated Red Blood Cells % 0.0 %
[2024-11-19 04:15] LABS: BUN/Creatinine Ratio 30.5 (10.0-20.0)
[2024-11-19 04:16] LABS: Mean Corpuscular Hemoglobin 28.6 pg (28.0-32.0); Mean Corpuscular Volume 84.9 fL (80.0-100.0)
[2024-11-19 04:17] LABS: Blood Urea Nitrogen 67 mg/dL (9-23); Calcium 7.6 mg/dL (8.7-10.4); Chloride 111 mmol/L (98-107); Glucose 271 mg/dL (74-106); Sodium 148 mmol/L (136-145)
[2024-11-19 04:19] LABS: INR 1.12 (0.9-1.15); Partial Thromboplastin Time 61.4 SEC (24.5-34.5); Prothrombin Time 11.7 sec (9.3-11.8)
[2024-11-19 04:27] LABS: Hemoglobin 7.0 g/dL (13.5-17.5)
--- NOTE | 2024-11-19 05:19 | DVH ---
CHEST RADIOGRAPH Indication: Acute hypoxic respiratory failure Technique: Single frontal view of the chest was obtained COMPARISON: XY CHEST XRAY 1 VIEW on DOS: 11/18/24, XY CHEST PORTABLE on DOS: 11/17/24, XY CHEST XRAY 1 VIEW on DOS: 11/16/24, XY CHEST XRAY 1 VIEW on DOS: 11/15/24, XY CHEST XRAY 1 VIEW on DOS: 11/14/24 FINDINGS: Lines and Tubes: Endotracheal tube, enteric catheter and right central venous catheter is in satisfac tory position. Lungs: Unchanged multifocal airspace disease. Pleura: Unchanged small right pleural effusion. No pneumothorax. Cardiomediastinal contours: Unremarkable. Bones: Unremarkable. IMPRESSION: Lines and tubes in satisfactory position. No significant interval change.
[2024-11-19 09:29] LABS: Base Excess -4.0 mmol/L (-2.0-3.0)
[2024-11-19 09:32] LABS: Hematocrit 24.2 % (41.0-53.0); Hemoglobin 8.1 g/dL (13.5-17.5)
--- NOTE | 2024-11-19 09:53 | DVHPN2 ---
Progress Note Date Seen: Nov 19, 2024 Resident Creating Document: HARSHAD DURAN RESIDENT Has the PT tested + for MRSA If YES, has PT been informed?: No Medical Necessity Reason Pt with a Central, PICC or Fol: Yes The following are medically ne: Central Line, Balderrama Catheter Subjective Review of Systems patient was seen and examined on the bedside. Failed CPAP trial today and currently he is on ventilator with FiO2 30%, tidal volume 400 mL, peep 5 Objective vital signs Vital Sign Date Time Temp Pulse Resp B/P (MAP) Pulse Ox O2 Delivery O2 Flow Rate FiO2 11/19/24 06:00 30 11/19/24 06:00 18 100 Mechanical Ventilator+ 11/19/24 06:00 124/56 11/19/24 06:00 70 11/19/24 04:00 97.8 97.8 11/18/24 20:00 0 Total Intake and Output 11/18/24 11/18/24 11/19/24 15:00 23:00 07:00 Intake Total 343.440 ml 928.75 ml 824.5 ml Output Total 600 ml 425 ml Balance 343.440 ml 328.75 ml 399.5 ml medications Current Medications Medications Dose Ordered Sig/Cira Route Start Time Stop Time Status Last Admin Dose Admin Dextrose 50 ml UD PRN IV 11/12/24 13:00 Bisacodyl 10 mg DAILYP PRN MA 11/12/24 13:15 Enoxaparin Sodium 40 mg DAILY SC 11/13/24 10:00 UNV Patient Own Medication 1 tab QPM PO 11/12/24 18:00 UNV Patient Own Medication 1 tab BID PO 11/12/24 22:00 UNV Patient Own Medication 2 gm Q8HR IV 11/12/24 14:00 UNV Albuterol 2.5 mg Q4HPRN PRN NEB 11/14/24 12:30 11/19/24 05:58 2.5 MG Ipratropium [place] 0.5 mg Q4HR NEB 11/14/24 14:00 11/19/24 05:58 0.5 MG Midazolam HCl 50 ml @ 1 mls/hr Q24H IV 11/14/24 12:45 11/18/24 22:00 2 MLS/HR Fentanyl Citrate 250 ml @ 2.5 mls/hr Q24H IV 11/14/24 12:45 11/19/24 03:15 30 MLS/HR Norepinephrine Bitartrate 250 ml @ 3.75 mls/hr Q24H IV 11/14/24 13:00 11/14/24 14:22 3.75 MLS/HR Acetaminophen 650 mg Q6HP PRN PO 11/14/24 17:00 Diagnostic Test (Pha) 1 strip Q4HR 11/14/24 22:00 11/19/24 06:01 1 STRIP Insulin Human Lispro Q4HR SC 11/14/24 22:00 11/19/24 06:01 2 UNITS Methylprednisolone Sodium Succinate 40 mg DAILY IV 11/15/24 10:00 11/18/24 10:07 40 MG Atorvastatin Calcium 80 mg HS PO 11/15/24 08:00 11/18/24 21:59 80 MG Clopidogrel Bisulfate 75 mg DAILY PO 11/16/24 10:00 11/18/24 09:56 75 MG Pantoprazole Sodium 40 mg DAILY IV 11/16/24 10:00 11/18/24 09:55 40 MG Enteral Nutritional Formula 1,000 ml 30ML/HR GT 11/16/24 13:30 11/16/24 21:57 1,000 ML Cefepime HCl 50 ml @ 12.5 mls/hr DAILY IV 11/18/24 10:00 11/18/24 09:57 12.5 MLS/HR Dextrose/Sodium Chloride 1,000 ml @ 75 mls/hr [id number] IV 11/18/24 11:30 11/19/24 00:50 75 MLS/HR Clonazepam 1 mg BID PO 11/19/24 10:00 UNV Quetiapine Fumarate 25 mg BID PO 11/19/24 10:00 UNV Lactulose 30 ml DAILY PO 11/19/24 10:00 UNV Examination Physical Exam General: RASS -1, afebrile, mucosae are moist Cardiovascular: Normal S1 and S2. No murmurs, gallops or rubs Respiratory: Mechanically assisted ventilation, equal bilateral airway entree. bilateral crackles Abdomen: Soft, nontender, no organomegaly, normal bowel sounds MSK/skin: Mobilization of limbs cannot be evaluated. Skin is dry and warm. Neurological: Orientation cannot be assessed. No apparent motor no sensitive deficits. Pupils are isocoric and reactive laboratory and microbiology Laboratory Tests 11/19/24 09:09 11/19/24 03:31 Test 11/19/24 03:31 Range/Units Serum Glucose 271 #H 74-106 mg/dL Microbiology Date/Time Source Procedure Growth Status 11/14/24 17:00 Blood Blood Culture - Preliminary NO GROWTH AFTER 72 HOURS OF INCUBATION. Resulted 11/14/24 14:55 Nose MRSA Screen - Final Complete 11/14/24 14:55 Urine - Catheterized Urine Culture - Final Complete Labs and/or images reviewed: Labs reviewed by me, Image(s) reviewed by me Problem List/Assessment/Plan Problem List/Assessment/Plan Assessment and plan: # EREN in the setting of sepsis and septic shock likely prerenal, hemodynamically mediated # Sepsis due to bilateral multifocal pneumonia, likely Gram-positive/Gram-negative # Hypernatremia # Hyperphosphatemia # Acute hypoxic respiratory failure # Acute on chronic systolic heart failure with reduced ejection fraction # pulmonary edema due to above # possible NSTEMI type 1 # Type 2 diabetes mellitus with a hemoglobin A1c 8.3 Plan: - Ordered urine sodium, creatinine and protein creatinine ratio to calculate FENA - Kidney ultrasound revealed normal study - Free water deficit 1.6L - Free water 200 mL q.4 hours - 24 hours urine output is 975 mL - continue IV antibiotic, heparin drip and other management as per primary - Appreciate cardiology consultation - Continue insulin lispro sliding scale q.4 hours - Strict I&O - Avoid nephrotoxic medication - Monitor BMP Thank you so much for the opportunity to consult on your patient. Nephro team will follow the patient. In case of any questions or concerns please feel free to reach out. Plan discussed with Dr. Zarate . The patient and caregiver team agreed to the plan. Addendum Patient seen and examined, plan discussed with resident. Agree with above, we will follow closely Plan discussed with: Other (RN) My Orders My Orders Orders - HARSHAD DURAN RESIDENT Procedure Category Date Status Time Kidney US 11/18/24 Resulted 13:30 Urine Sodium LAB 11/18/24 Logged 13:30 Urine LAB 11/18/24 Logged Protein/Creatinine 13:30 Dietary Evaluation Review Comments: 1) Increase Glucerna 1.2 to 50 mL/hr goal rate as tolerated. Goal rate will provide 1440 kcals, 72g Pro, and 966 mL free H2O per 24 hrs. TF regimen will meet ~93% estimated energy needs and ~73% estimated protein needs 2) Advance to 45g CCHO 2g Na diet when medically feasible, pending ST approval 3) Refer to outpatient RD/CD[facility] for diabetes education 4) Follow-up with cardiology, pulmonology, and nephrology 5) Continue to monitor I&O, labs, and skin integrity Expected Outcomes/Goals: 1) nutrition support to provide at least 75% estimated daily needs 2) labs and wound to improve 3) diet to advance 4) f/u in 2-3 days HARSHAD DURAN Nov 19, 2024 09:53 SALVADOR ZARATE MD Nov 19, 2024 21:29
[2024-11-19] MEDS: clonazePAM 0.5 MG TAB PO SCH (13:13)
[2024-11-19] MEDS: LACTULOSE 20Gm/30ML SOLN PO SCH (13:13)
--- NOTE | 2024-11-19 13:30 | DVHPNRES ---
Progress Note Date Seen: Nov 19, 2024 Resident Creating Document: JULI HIGGINS RESIDENT Has the PT tested + for MRSA If YES, has PT been informed?: No Medical Necessity Reason Pt with a Central, PICC or Fol: Yes The following are medically ne: Central Line, Balderrama Catheter Subjective Review of Systems Over the last 24 hours the patient remained hemodynamically stable: BP 124/56, HR 70, RR 18, FiO? 30%, SpO? 100%. Ventilation goals maintained with adequate oxygenation (ABG pH 7.38, pCO? 40.2, pO? 97, HCO? 23.5). Urine output ? 0.7 mL/kg/hr. Fluid balance +1151 mL. Echocardiogram (today): LVEF 30 percent with global LV dysfunction, dilated RV with systolic dysfunction, enlarged LA and IVC, and moderate mitral stenosis consistent with combined systolic and diastolic HF. Nephrology following for EREN. Heparin drip discontinued today as cardiac status stabilized. Sedation being tapered fentanyl weaning down, Versed stopped, Propofol PRN for overnight sedation, plan to initiate Precedex in AM. Started methadone 10 mg q8h for analgesia, and CLONEZAPAM and Seroquel for anxiety and agitation control. Hemoglobin johnson from 7.0 to 8.1 g/dL after optimization (no transfusion given). WBC 5.7, platelets 302. BUN 67, creatinine 2.20 (unchanged), GFR 31. Sodium 148 (high). No bowel movement; on lactulose 30 mL BID. Tube feeds continued (Glucerna). Chest x-ray shows stable multifocal airspace disease without effusion or pneumothorax. Family updated and reaffirmed DNR chemical code only. Conservative medical management continued. REVIEW OF SYSTEMS (limited due to sedation) General Intubated, sedated. Respiratory On mechanical ventilation, stable gas exchange. Cardiac Stable vitals, no arrhythmias. GI On tube feeds, no BM. Adequate urine output via Balderrama. Neuro Sedated, RASS -2 to -3. Skin Intact, 1+ pitting edema bilaterally. Objective vital signs Vital Sign Date Time Temp Pulse Resp B/P (MAP) Pulse Ox O2 Delivery O2 Flow Rate FiO2 11/19/24 12:19 104 18 139/69 (92) 97 30 11/19/24 06:00 Mechanical Ventilator+ 11/19/24 04:00 97.8 97.8 11/18/24 20:00 0 Total Intake and Output 11/18/24 11/18/24 11/19/24 15:00 23:00 07:00 Intake Total 343.440 ml 928.75 ml 824.5 ml Output Total 600 ml 425 ml Balance 343.440 ml 328.75 ml 399.5 ml medications Current Medications Medications Dose Ordered Sig/Cira Route Start Time Stop Time Status Last Admin Dose Admin Dextrose 50 ml UD PRN IV 11/12/24 13:00 Bisacodyl 10 mg DAILYP PRN MA 11/12/24 13:15 Enoxaparin Sodium 40 mg DAILY SC 11/13/24 10:00 UNV Patient Own Medication 1 tab QPM PO 11/12/24 18:00 UNV Patient Own Medication 1 tab BID PO 11/12/24 22:00 UNV Patient Own Medication 2 gm Q8HR IV 11/12/24 14:00 UNV Albuterol 2.5 mg Q4HPRN PRN NEB 11/14/24 12:30 11/19/24 10:14 2.5 MG Ipratropium [place] 0.5 mg Q4HR NEB 11/14/24 14:00 11/19/24 10:14 0.5 MG Midazolam HCl 50 ml @ 1 mls/hr Q24H IV 11/14/24 12:45 11/18/24 22:00 2 MLS/HR Fentanyl Citrate 250 ml @ 2.5 mls/hr Q24H IV 11/14/24 12:45 11/19/24 03:15 30 MLS/HR Norepinephrine Bitartrate 250 ml @ 3.75 mls/hr Q24H IV 11/14/24 13:00 11/14/24 14:22 3.75 MLS/HR Acetaminophen 650 mg Q6HP PRN PO 11/14/24 17:00 Diagnostic Test (Pha) 1 strip Q4HR 11/14/24 22:00 11/19/24 13:08 1 STRIP Insulin Human Lispro Q4HR SC 11/14/24 22:00 11/19/24 13:08 2 UNITS Methylprednisolone Sodium Succinate 40 mg DAILY IV 11/15/24 10:00 11/19/24 10:11 40 MG Atorvastatin Calcium 80 mg HS PO 11/15/24 08:00 11/18/24 21:59 80 MG Clopidogrel Bisulfate 75 mg DAILY PO 11/16/24 10:00 11/19/24 10:11 75 MG Pantoprazole Sodium 40 mg DAILY IV 11/16/24 10:00 11/19/24 10:11 40 MG Enteral Nutritional Formula 1,000 ml 30ML/HR GT 11/16/24 13:30 11/16/24 21:57 1,000 ML Cefepime HCl 50 ml @ 12.5 mls/hr DAILY IV 11/18/24 10:00 11/19/24 10:11 12.5 MLS/HR Dextrose/Sodium Chloride 1,000 ml @ 75 mls/hr [id number] IV 11/18/24 11:30 11/19/24 00:50 75 MLS/HR Clonazepam 1 mg BID PO 11/19/24 10:00 Lactulose 30 ml DAILY PO 11/19/24 10:00 11/19/24 13:13 30 ML Examination General: Critically ill, sedated, intubated. HEENT: Pupils equal/reactive; ETT and OGT in place. Neck: No JVD; central line clean and intact. Cardiac: Regular rhythm, S1/S2 normal, no new murmur. Trace peripheral edema. Respiratory: Bilateral breath sounds, mild crackles at bases. Abdomen: Soft, nontender, mildly distended; bowel sounds sluggish. Extremities: 1+ pitting edema. Peripheral pulses palpable. Neuro: Sedated, non-focal when stimulated. Skin: No breakdown. laboratory and microbiology Laboratory Tests 11/19/24 09:09 11/19/24 03:31 Test 11/19/24 03:31 Range/Units Serum Glucose 271 #H 74-106 mg/dL Microbiology Date/Time Source Procedure Growth Status 11/14/24 17:00 Blood Blood Culture - Preliminary NO GROWTH AFTER 72 HOURS OF INCUBATION. Resulted 11/14/24 14:55 Nose MRSA Screen - Final Complete 11/14/24 14:55 Urine - Catheterized Urine Culture - Final Complete Problem List/Assessment/Plan Problem List/Assessment/Plan Assessment 1. Acute Hypoxic Respiratory Failure on mechanical ventilation secondary to pneumonia AND Super imposed pulmonary edema. on mechanical ventilation, improving gas exchange, transitioning to CPAP trial. 2. Septic Shock likely secondary to MSSA bacteremia/osteomyelitis; on norepinephrine and broad-spectrum antibiotics (Cefepime). 3. 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 4. Acute Kidney Injury (Stage 2) likely multifactorial (sepsis, contrast, low perfusion); GFR 48, Cr 1.52./VMN 5. Metabolic Encephalopathy secondary to sepsis and sedation. 6. Osteomyelitis (MSSA) prior bone biopsy and cultures positive, on cefepime. 7. Type 2 Diabetes Mellitus on insulin sliding scale. 8. Hypertension on hold due to current shock. 9. Dementia baseline per . 10. Hypocalcemia and Hyperphosphatemia due to EREN. 11. Malnutrition / weight loss on tube feeds, dose increased. 12. DNR chemical code only.confirmed with family. 13. Possible Ileus abdominal distension, non-obstructive bowel gas on KUB.Starting Lactulose System-[place] Plan Neurology Continue sedation taper; RASS goal -1 to-2. Start Precedex in AM. Monitor for withdrawal or delirium. Daily sedation holiday and neuro checks. Cardiovascular * Discontinue heparin drip * Plavix 75 mg PO daily, Atorvastatin 80 mg PO daily. * No invasive procedures per DNR and family request. * Monitor troponin trend, QTc (avoid prolonging drugs). * Continue telemetry. * Maintain MAP >65 mmHg, off vasopressors. * Strict I&O, daily weights. Respiratory * Continue vent weaning with CPAP trials. * Maintain FiO? ?40%, PEEP 5. * Albuterol and Ipratropium nebs Q4H. * Daily ABG, CXR PRN. * Elevate HOB >30, oral care q4h. * Daily spontaneous breathing trial when stable. Infectious Disease * Continue Cefepime IV q12h (MSSA coverage). * Monitor cultures (blood, sputum, urine). Renal / Fluids / Electrolytes * Maintain MAP >65 to support renal perfusion. * Avoid nephrotoxins (NSAIDs, contrast). * Strict I&O; current urine output adequate (850 mL/24h). * Replace electrolytes (Mg >2, K >4, Ca as needed). * Recheck BMP q8h. Appreciate Nephrology recommendation G* Continue Glucerna GT feeds, titrate up slowly as tolerated. * Lactulose 20 mL TID * Pantoprazole 40 mg IV daily for stress ulcer prophylaxis. * Add Senna for bowel regulation.I / Nutrition Endocrine * Continue insulin sliding scale; target glucose 410851 mg/dL. * Hold oral hypoglycemics. * Recheck HbA1c when stable. Hematology * Monitor Hgb/Hct daily (8.9 g/dL today). * Transfuse if Hgb <7.0 or symptomatic anemia. * Continue Heparin drip (to be transitioned to Lovenox). Musculoskeletal / ID * Osteomyelitis due to MSSA continue IV antibiotics per ID. * Pain managed with Fentanyl infusion; avoid NSAIDs due to renal status. * Monitor inflammatory markers. Prophylaxis * DVT: SCD * GI: Pantoprazole 40 mg IV daily. * Pressure Injury: Turn q2h, air mattress. * Aspiration: Elevate HOB >30. Condition / Prognosis * Critical, guarded prognosis. * Multi-organ involvement (cardiac ischemia, septic shock, EREN, respiratory failure). * Continue aggressive supportive care per familys wishes (medical management only). CODE STATUS: CHEMICAL CODE Case discussed in detail with the attending physician, including the clinical presentation, diagnostic workup, and comprehensive management plan. The patients family was updated and expressed understanding of his condition and treatment approach. Critical Care Time Spent: >45 minutes Plan discussed with: Spouse, Other (RN) My Orders My Orders Orders - JULI HIGGINS RESIDENT Procedure Category Date Status Time Chest Xray 1 View XY 11/19/24 Resulted 04:00 Abg W/ Co-Ox RT 11/19/24 Logged 04:00 PTPTT LAB 11/20/24 Verified 04:00 Type And Screen BBK 11/19/24 In Process 07:51 Communication Order ORDERS 11/19/24 Transmitted 07:51 Heparin Protocol CHAMP 11/19/24 In Process 08:31 Cpap Trial For Am ORDERS 11/19/24 Transmitted 08:38 Cpap/Sed Vacation Med ORDERS 11/19/24 Transmitted Weaning 08:38 Cpap Trial For Am ORDERS 11/19/24 Transmitted 12:10 Dietary Evaluation Review Comments: 1) Increase Glucerna 1.2 to 50 mL/hr goal rate as tolerated. Goal rate will provide 1440 kcals, 72g Pro, and 966 mL free H2O per 24 hrs. TF regimen will meet ~93% estimated energy needs and ~73% estimated protein needs 2) Advance to 45g CCHO 2g Na diet when medically feasible, pending ST approval 3) Refer to outpatient RD/[facility] for diabetes education 4) Follow-up with cardiology, pulmonology, and nephrology 5) Continue to monitor I&O, labs, and skin integrity Expected Outcomes/Goals: 1) nutrition support to provide at least 75% estimated daily needs 2) labs and wound to improve 3) diet to advance 4) f/u in 2-3 days Date of Service: Nov 19, 2024 Billing Provider: MINI BALDWIN MD Common Visit Codes: [id number] CARE 30-74 MIN JULI HIGGINS RESIDENT Nov 19, 2024 13:30 MINI BALDWIN MD Nov 27, 2024 16:04
[2024-11-19] MEDS: PROPOFOL 100 ML IV SCH (17:21)
[2024-11-19] MEDS: FREE WATER GT SCH (17:27)
[2024-11-19] MEDS: ADENOSINE 6 MG/2 ML INJ IV ONE (20:34)
[2024-11-19] MEDS: AMIODARONE 360mg/200mL PREMIX 200 ML IV ONE ×2 (20:41→21:00)
[2024-11-19] MEDS: AMIODARONE BOLUS KIT 100 ML IV ONE ×2 (20:42→20:45)
[2024-11-19 21:17] LABS: Hemoglobin 7.8 g/dL (13.5-17.5); Nucleated Red Blood Cells % 0.0 %
[2024-11-19 21:18] LABS: Hematocrit 23.7 % (41.0-53.0); Mean Corpuscular Hemoglobin 28.0 pg (28.0-32.0); Mean Corpuscular Volume 85.1 fL (80.0-100.0)
[2024-11-19 21:25] LABS: Anion Gap 11 (5-15); BUN/Creatinine Ratio 27.4 (10.0-20.0); Carbon Dioxide 23 mmol/L (20-31); Magnesium 2.0 mg/dL (1.6-2.6); Potassium 3.7 mmol/L (3.5-5.1); Total Protein 6.3 g/dL (5.7-8.2)
[2024-11-19 21:25] LABS: INR 1.13 (0.9-1.15); Partial Thromboplastin Time 29.8 SEC (24.5-34.5); Prothrombin Time 11.8 sec (9.3-11.8)
[2024-11-19 21:26] LABS: Alkaline Phosphatase 80 U/L (46-116); Bilirubin, Total 0.3 mg/dL (0.2-1.0)
[2024-11-19 21:41] LABS: Alanine Aminotransferase 9 U/L (7-40); Albumin 2.9 g/dL (3.2-4.8); Blood Urea Nitrogen 62 mg/dL (9-23); Calcium 7.4 mg/dL (8.7-10.4); Chloride 111 mmol/L (98-107); Glucose 324 mg/dL (74-106); Sodium 145 mmol/L (136-145)
[2024-11-19] MEDS: LACTULOSE 20Gm/30ML SOLN NG SCH (22:16)
[2024-11-19] MEDS: ENOXAPARIN SOD 100 MG/1 ML SYRINGE SC ONE (22:17)
[2024-11-20] VITALS (119 sets, daily range): BP systolic 56–192; BP diastolic 31–108; PULSE 50–131; RESP 15–27; TEMP 97.9–99; O2SAT 89–100
--- NOTE | 2024-11-20 01:24 | DVHPN2 ---
Progress Note - Dictate Date Seen: Nov 19, 2024 Has the PT tested + for MRSA If YES, has PT been informed?: No Medical Necessity Reason Pt with a Central, PICC or Fol: Yes The following are medically ne: Central Line, Balderrama Catheter Subjective Patient was seen and evaluated in follow up in the ICU. Patient is intubated and sedated on ventilator. 30% FiO2. Patient failed CPAP trial today. HGB 8.1, HCT 24.2, NA 148, CL 111, BUN 67, TENNIS COURT ATTENDANT 2.20, GLUC 219, CA 7.6. Chest x-ray is unchanged. vital signs Vital Sign Date Time Temp Pulse Resp B/P (MAP) Pulse Ox O2 Delivery O2 Flow Rate FiO2 11/19/24 13:45 116 24 169/93 (118) 98 11/19/24 12:19 30 11/19/24 12:00 99.1 99.1 11/19/24 06:00 Mechanical Ventilator+ 11/18/24 20:00 0 Total Intake and Output 11/18/24 11/18/24 11/19/24 15:00 23:00 07:00 Intake Total 343.440 ml 928.75 ml 824.5 ml Output Total 600 ml 425 ml Balance 343.440 ml 328.75 ml 399.5 ml medications Current Medications Medications Dose Ordered Sig/Cira Route Start Time Stop Time Status Last Admin Dose Admin Dextrose 50 ml UD PRN IV 11/12/24 13:00 Bisacodyl 10 mg DAILYP PRN [place] 11/12/24 13:15 Enoxaparin Sodium 40 mg DAILY SC 11/13/24 10:00 UNV Patient Own Medication 1 tab QPM PO 11/12/24 18:00 UNV Patient Own Medication 1 tab BID PO 11/12/24 22:00 UNV Patient Own Medication 2 gm Q8HR IV 11/12/24 14:00 UNV Albuterol 2.5 mg Q4HPRN PRN NEB 11/14/24 12:30 11/19/24 13:57 2.5 MG Ipratropium [place] 0.5 mg Q4HR NEB 11/14/24 14:00 11/19/24 13:57 0.5 MG Midazolam HCl 50 ml @ 1 mls/hr Q24H IV 11/14/24 12:45 11/18/24 22:00 2 MLS/HR Fentanyl Citrate 250 ml @ 2.5 mls/hr Q24H IV 11/14/24 12:45 11/19/24 03:15 30 MLS/HR Norepinephrine Bitartrate 250 ml @ 3.75 mls/hr Q24H IV 11/14/24 13:00 11/14/24 14:22 3.75 MLS/HR Acetaminophen 650 mg Q6HP PRN PO 11/14/24 17:00 Diagnostic Test (Pha) 1 strip Q4HR 11/14/24 22:00 11/19/24 13:08 1 STRIP Insulin Human Lispro Q4HR SC 11/14/24 22:00 11/19/24 13:08 2 UNITS Methylprednisolone Sodium Succinate 40 mg DAILY IV 11/15/24 10:00 11/19/24 10:11 40 MG Atorvastatin Calcium 80 mg HS PO 11/15/24 08:00 11/18/24 21:59 80 MG Clopidogrel Bisulfate 75 mg DAILY PO 11/16/24 10:00 11/19/24 10:11 75 MG Pantoprazole Sodium 40 mg DAILY IV 11/16/24 10:00 11/19/24 10:11 40 MG Enteral Nutritional Formula 1,000 ml 30ML/HR GT 11/16/24 13:30 11/16/24 21:57 1,000 ML Cefepime HCl 50 ml @ 12.5 mls/hr DAILY IV 11/18/24 10:00 11/19/24 10:11 12.5 MLS/HR Clonazepam 1 mg BID PO 11/19/24 10:00 Lactulose 30 ml BID NG 11/19/24 22:00 Purified Water 200 ml Q4HR GT 11/19/24 18:00 objective GENERAL: Intubated on ventilator. EYES: PERRL, EOMI. Anicteric. HENT: Moist mucous membranes. LUNGS: Decreased breath sounds. CARDIOVASCULAR: Regular rate and rhythm. ABDOMEN: Soft, nontender and nondistended. EXTREMITIES: No edema. SKIN: Warm, dry. laboratory and microbiology Laboratory Tests 11/19/24 09:09 11/19/24 03:31 Test 11/19/24 03:31 Range/Units Serum Glucose 271 #H 74-106 mg/dL Problem List NSTEMI, likely type 1. ?Wellens syndrome. Rule out structural heart disease. Hypertension. Pneumonia. Type 2 diabetes mellitus. Acute kidney injury. History of tobacco use. Possible early-onset dementia. Assessment/Plan Continued all current supportive medical care. Plavix. IV antibiotics as ordered. GI prophylactics. Additional plan as per the hospital course. Critical care time of 45 minutes provided to include time spent evaluation of patient at bedside, when appropriate patient/family education for diagnosis, treatment plan, review of pertinent medical information and discussion of care with specialty providers and PCP. Mechanical ventilator parameters, treatment and adjustments have personally been reviewed by me and treatment plan by rocket test fire worker has also been reviewed. Dietary Evaluation Review Comments: 1) Increase Glucerna 1.2 to 50 mL/hr goal rate as tolerated. Goal rate will provide 1440 kcals, 72g Pro, and 966 mL free H2O per 24 hrs. TF regimen will meet ~93% estimated energy needs and ~73% estimated protein needs 2) Advance to 45g CCHO 2g Na diet when medically feasible, pending ST approval 3) Refer to outpatient RD/[facility] for diabetes education 4) Follow-up with cardiology, pulmonology, and nephrology 5) Continue to monitor I&O, labs, and skin integrity Expected Outcomes/Goals: 1) nutrition support to provide at least 75% estimated daily needs 2) labs and wound to improve 3) diet to advance 4) f/u in 2-3 days Plan discussed with: ANJU Shah MD Nov 19, 2024 14:39
[2024-11-20] MEDS: AMIODARONE 360mg/200mL PREMIX 200 ML IV SCH (03:03)
[2024-11-20 03:53] LABS: Hematocrit 22.5 % (41.0-53.0); Hemoglobin 7.5 g/dL (13.5-17.5); Mean Corpuscular Hemoglobin 28.3 pg (28.0-32.0); Mean Corpuscular Volume 84.6 fL (80.0-100.0); Nucleated Red Blood Cells % 0.0 %
[2024-11-20 04:05] LABS: Alkaline Phosphatase 82 U/L (46-116); Anion Gap 12 (5-15); BUN/Creatinine Ratio 26.6 (10.0-20.0); Carbon Dioxide 23 mmol/L (20-31); Total Protein 6.2 g/dL (5.7-8.2)
[2024-11-20 04:06] LABS: Alanine Aminotransferase < 9 U/L (7-40); Albumin 2.9 g/dL (3.2-4.8); Bilirubin, Total 0.3 mg/dL (0.2-1.0); Blood Urea Nitrogen 55 mg/dL (9-23); Calcium 7.6 mg/dL (8.7-10.4); Chloride 111 mmol/L (98-107); Glucose 248 mg/dL (74-106); Potassium 3.3 mmol/L (3.5-5.1); Sodium 146 mmol/L (136-145)
--- NOTE | 2024-11-20 05:17 | DVH ---
CHEST RADIOGRAPH Indication: Acute hypoxic respiratory failure Technique: Single frontal view of the chest was obtained COMPARISON: XY CHEST XRAY 1 VIEW on DOS: 11/19/24, XY CHEST XRAY 1 VIEW on DOS: 11/18/24, XY CHEST PO RTABLE on DOS: 11/17/24, XY CHEST XRAY 1 VIEW on DOS: 11/16/24, XY CHEST XRAY 1 VIEW on DOS: 11/15/24 FINDINGS: Lines and Tubes: Unchanged. Lungs: Slight interval decrease in pulmonary vascular congestion and bilateral pleural effusions, now small. No pneumothorax. Cardiomediastinal contours: Unremarkable Bones: Unremarkable IMPRESSION: 1. Slight interval decrease in pulmonary vascular congestion and bilateral pleural effusions, now sma ll. 2. Lines and tubes unchanged.
[2024-11-20] MEDS: POTASSIUM CHL 20MEQ/100ML 100 ML IV ONE ×2 (06:25→09:34)
[2024-11-20 07:28] LABS: Base Excess -4.8 mmol/L (-2.0-3.0)
--- NOTE | 2024-11-20 08:00 | ECG ---
[facility] Test Date: 2024-11-19 Test Time: 20:35:46 Pat Name: CHALO DIXON Department: Respiratoy Room: 0262 A Gender: M Green Ware Caster: MERRY : 1950 Requested By: CHASTITY MONTERROSO Order Number: [id number] Reading MD: Mikhail Mcclendon Measurements Intervals [place] Rate: 145 P: 0 WI: 0 QRS: 49 QRSD: 92 T: 237 QT: 312 QTc: 485 Interpretive Statements Atrial fibrillation Ventricular premature complex Low voltage, extremity leads Repolarization abnormality, prob rate related Baseline wander in lead(s) I,III,aVL Electronically Signed On 11-20-2024 9:07:25 PDT by Mikhail Mcclendon Please click the below link to view image of tracing.
[2024-11-20] MEDS: ENOXAPARIN SOD 100 MG/1 ML SYRINGE SC SCH (09:09)
[2024-11-20 11:19] LABS: Hematocrit 23.8 % (41.0-53.0); Hemoglobin 7.7 g/dL (13.5-17.5)
--- NOTE | 2024-11-20 12:51 | DVHPNRES ---
Progress Note Date Seen: Nov 20, 2024 Resident Creating Document: JULI HIGGINS RESIDENT Has the PT tested + for MRSA If YES, has PT been informed?: No Medical Necessity Reason Pt with a Central, PICC or Fol: Yes The following are medically ne: Central Line, Balderrama Catheter Subjective Review of Systems Overnight, at 8:30 PM, the patient developed sustained supraventricular tachycardia (HR 230 bpm) with atrial fibrillation and desaturation. Treated with amiodarone bolus and drip, converted to sinus rhythm, now transitioned to amiodarone PO 200 mg BID.?Patient currently hemodynamically stable on norepinephrine infusion (low dose) with FiO 30%. Sedation with dexmedetomidine, propofol, and fentanyl drip is being tapered; however, the patient becomes markedly agitated during sedation weaning. Vitals this morning: BP 168/89, HR 126, RR 20, SpO 94% on FiO? 30%. Urine output 1350 mL + 1025 mL; input 1560 mL + 2176 mL; balance +210 mL; urine output 0.92 mL/kg/hr. Current medications: Amiodarone, Cefepime, D5W, Dexmedetomidine, Norepinephrine, Propofol, Fentanyl, Lovenox, Plavix, Atorvastatin, Methylprednisolone (Solumedrol), Lactulose, Methadone 10 mg q8h, Clonazepam 1 mg q12h, Seroquel 25 mg BID. Laboratory results: Hgb 7.5 (? from 7.8), Hct 22.5, WBC 8.7 (normal), Platelets 365 (normal). Na 146 , K 3.3 (low; replaced), Ca 7.6 (low), Cr 2.07 (stable), BUN unchanged, GFR 55 (?). ABG: pH 7.40, pCO? 29.1 ?, pO? 79.7, HCO? 18.8 ?, O? sat 95.3%. Chest X-ray: interval decrease in pulmonary vascular congestion, improving bilateral pleural effusions, no pneumothorax. Patient remains intubated on ACVC 400 / 20 / PEEP 5 / FiO? 30%. Plan for CPAP weaning trial and possible extubation tomorrow if agitation and oxygenation permit. Family ( and son) updated at bedside; condition remains guarded. REVIEW OF SYSTEMS (limited due to sedation) General Sedated, agitated during weaning. Respiratory Mechanically ventilated, oxygenation stable. Cardiac Recent AFib/SVT episode, now sinus rhythm. GI Tube feeds tolerated, on lactulose. Balderrama present, urine output adequate. Neuro Sedated, RASS -2 to -3. Skin Intact, trace edema. Objective vital signs Vital Sign Date Time Temp Pulse Resp B/P (MAP) Pulse Ox O2 Delivery O2 Flow Rate FiO2 11/20/24 10:13 94 19 148/72 (97) 95 30 11/20/24 06:00 Mechanical Ventilator+ 11/20/24 04:00 97.9 97.9 11/19/24 20:00 0 Total Intake and Output 11/19/24 11/19/24 11/20/24 15:00 23:00 07:00 Intake Total 208.265 ml 748.285 ml 584.22 ml Output Total 700 ml 650 ml Balance 208.265 ml 48.285 ml -65.78 ml medications Current Medications Medications Dose Ordered Sig/Cira Route Start Time Stop Time Status Last Admin Dose Admin Dextrose 50 ml UD PRN IV 11/12/24 13:00 Bisacodyl 10 mg DAILYP PRN SD 11/12/24 13:15 Enoxaparin Sodium 40 mg DAILY SC 11/13/24 10:00 UNV Patient Own Medication 1 tab QPM PO 11/12/24 18:00 UNV Patient Own Medication 1 tab BID PO 11/12/24 22:00 UNV Patient Own Medication 2 gm Q8HR IV 11/12/24 14:00 UNV Albuterol 2.5 mg Q4HPRN PRN NEB 11/14/24 12:30 11/19/24 13:57 2.5 MG Ipratropium [place] 0.5 mg Q4HR NEB 11/14/24 14:00 11/20/24 10:13 0.5 MG Midazolam HCl 50 ml @ 1 mls/hr Q24H IV 11/14/24 12:45 11/18/24 22:00 2 MLS/HR Fentanyl Citrate 250 ml @ 2.5 mls/hr Q24H IV 11/14/24 12:45 11/20/24 02:27 25 MLS/HR Norepinephrine Bitartrate 250 ml @ 3.75 mls/hr Q24H IV 11/14/24 13:00 11/19/24 17:59 3.75 MLS/HR Acetaminophen 650 mg Q6HP PRN PO 11/14/24 17:00 Diagnostic Test (Pha) 1 strip Q4HR 11/14/24 22:00 11/20/24 09:36 1 STRIP Methylprednisolone Sodium Succinate 40 mg DAILY IV 11/15/24 10:00 11/20/24 09:46 40 MG Atorvastatin Calcium 80 mg HS PO 11/15/24 08:00 11/19/24 22:24 80 MG Clopidogrel Bisulfate 75 mg DAILY PO 11/16/24 10:00 11/20/24 09:54 75 MG Pantoprazole Sodium 40 mg DAILY IV 11/16/24 10:00 11/20/24 09:45 40 MG Enteral Nutritional Formula 1,000 ml 30ML/HR GT 11/16/24 13:30 11/19/24 17:40 1,000 ML Cefepime HCl 50 ml @ 12.5 mls/hr DAILY IV 11/18/24 10:00 11/20/24 09:45 12.5 MLS/HR Clonazepam 1 mg BID PO 11/19/24 10:00 Lactulose 30 ml BID NG 11/19/24 22:00 11/20/24 09:54 30 ML Purified Water 200 ml Q4HR GT 11/19/24 18:00 11/20/24 09:54 200 ML Propofol 100 ml @ 1.83 mls/hr Q24H IV 11/19/24 17:00 11/19/24 17:21 1.83 MLS/HR Methadone HCl 10 mg Q8HR PO 11/19/24 22:00 Hold Enoxaparin Sodium 60 mg DAILY SC 11/20/24 10:00 Amiodarone HCL/ Dextrose 200 ml @ 16.66 mls/ hr Q12H IV 11/20/24 03:00 11/20/24 03:03 16.66 MLS/HR Insulin Human Lispro Q4HR SC 11/20/24 14:00 Examination General: Intubated, sedated, critically ill. HEENT: ETT and OGT in place. Pupils equal and reactive. Neck: No JVD, central line intact. Cardiac: Regular rhythm after amiodarone, S1 S2 normal, no murmur. Respiratory: Mechanically ventilated, bilateral air entry, fine crackles at bases. Abdomen: Soft, mild distension, nontender. Extremities: 1+ pitting edema, pulses palpable. Neuro: RASS -2, moves to painful stimuli. Skin: Warm, no breakdown. laboratory and microbiology Laboratory Tests 11/20/24 10:30 11/20/24 02:52 Test 11/20/24 02:52 Range/Units Serum Glucose 248 H 74-106 mg/dL Microbiology Date/Time Source Procedure Growth Status 11/14/24 17:00 Blood Blood Culture - Final NO GROWTH AFTER 5 DAYS OF INCUBATION. Complete 11/14/24 14:55 Nose MRSA Screen - Final Complete 11/14/24 14:55 Urine - Catheterized Urine Culture - Final Complete Problem List/Assessment/Plan Problem List/Assessment/Plan Assessment 1. Acute Hypoxic Respiratory Failure on mechanical ventilation secondary to pneumonia AND Super imposed pulmonary edema. on mechanical ventilation, improving gas exchange, transitioning to CPAP trial. 2. Septic Shock likely secondary to MSSA bacteremia/osteomyelitis; on norepinephrine and broad-spectrum antibiotics (Cefepime). 3. 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 4. Acute Kidney Injury (Stage 2) likely multifactorial (sepsis, contrast, low perfusion); GFR 48, Cr 1.52./VMN 5. Metabolic Encephalopathy secondary to sepsis and sedation. 6. Osteomyelitis (MSSA) prior bone biopsy and cultures positive, on cefepime. 7. Type 2 Diabetes Mellitus on insulin sliding scale. 8. Hypertension on hold due to current shock. 9. Dementia baseline per . 10. Hypocalcemia and Hyperphosphatemia due to EREN. 11. Malnutrition / weight loss on tube feeds, dose increased. 12. DNR chemical code only.confirmed with family. 13. Possible Ileus abdominal distension, non-obstructive bowel gas on KUB.Starting Lactulose System-[place]cios Plan Neurology Continue dexmedetomidine titration (RASS -1 to -2). Maintain Seroquel 25 mg BID and clonazepam 1 mg q12h. Methadone 10 mg Q8H. Monitor for delirium. Cardiovascular Continue amiodarone 200 mg PO BID. Continue Lovenox for anticoagulation and Plavix 75 mg daily. Atorvastastin 80 HS Monitor rhythm and rate via telemetry. Maintain MAP > 65 mmHg with low-dose norepinephrine. Repeat EKG daily and PRN for QT monitoring. Administered one dose lasix 80 iv Respiratory Continue mechanical ventilation settings (ACVC 400/20/PEEP 5/FiO? 30). Daily ABG and CXR. Begin CPAP weaning trial tomorrow. Continue Albuterol/Ipratropium nebs Q4H. Infectious Disease * Continue Cefepime IV q12h (MSSA coverage). * Monitor cultures (blood, sputum, urine). Renal / Fluids / Electrolytes * Maintain MAP >65 to support renal perfusion. * Avoid nephrotoxins (NSAIDs, contrast). * Strict I&O; current urine output adequate (850 mL/24h). * Replace electrolytes (Mg >2, K >4, Ca as needed). * Recheck BMP q8h. Appreciate Nephrology recommendation G* Continue Glucerna GT feeds, titrate up slowly as tolerated. * Lactulose 20 mL TID * Pantoprazole 40 mg IV daily for stress ulcer prophylaxis. * Add Senna for bowel regulation.I / Nutrition Endocrine * Continue insulin sliding scale; target glucose 535188 mg/dL. * Hold oral hypoglycemics. * Recheck HbA1c when stable. Hematology * Monitor Hgb/Hct daily (8.9 g/dL today). * Transfuse if Hgb <7.0 or symptomatic anemia. * Heparin drip ( transitioned to Lovenox). - Iron study revealed low iron, TIBC and saturation - IV iron daily Musculoskeletal / ID * Osteomyelitis due to MSSA continue IV antibiotics. * Pain managed with Fentanyl infusion; avoid NSAIDs due to renal status. * Monitor inflammatory markers. Prophylaxis * DVT: SCD * GI: Pantoprazole 40 mg IV daily. * Pressure Injury: Turn q2h, air mattress. * Aspiration: Elevate HOB >30. Condition / Prognosis * Critical, guarded prognosis. * Multi-organ involvement (cardiac ischemia, septic shock, EREN, respiratory failure). * Continue aggressive supportive care per familys wishes (medical management only). CODE STATUS: CHEMICAL CODE Case discussed in detail with the attending physician, including the clinical presentation, diagnostic workup, and comprehensive management plan. The patients family was updated and expressed understanding of his condition and treatment approach. Critical Care Time Spent: >45 minutes Plan discussed with: Spouse My Orders My Orders Orders - JULI HIGGINS RESIDENT Procedure Category Date Status Time Abg W/ Co-Ox RT 11/20/24 Logged 04:00 Chest Xray 1 View XY 11/20/24 Resulted 04:00 Lactulose Oral PHA 11/19/24 In Process 22:00 Propofol (Diprivan) PHA 11/19/24 In Process 17:00 Methadone Hcl Tablet PHA 11/19/24 In Process (Methadone Hcl Tabl 22:00 Potassium LAB 11/20/24 Logged 08:00 Hemoglobin & LAB 11/20/24 Logged Hematocrit 22:00 Hemoglobin & LAB 11/21/24 Verified Hematocrit 10:00 Hemoglobin & LAB 11/21/24 Verified Hematocrit 22:00 Hemoglobin & LAB 11/22/24 Verified Hematocrit 10:[address] 11/20/24 Logged 08:39 Complete Blood Count LAB 11/21/24 Verified 04:00 Comprehensive LAB 11/21/24 Verified Metabolic Panel 04:00 Chest Xray 1 View XY 11/21/24 Logged 04:00 Magnesium LAB 11/21/24 Verified 04:00 Abg W/ Co-Ox RT 11/21/24 Logged 04:00 Dietary Evaluation Review Comments: 1) Increase Glucerna 1.2 to 50 mL/hr goal rate as tolerated. Goal rate will provide 1440 kcals, 72g Pro, and 966 mL free H2O per 24 hrs. TF regimen will meet ~93% estimated energy needs and ~73% estimated protein needs 2) Advance to 45g CCHO 2g Na diet when medically feasible, pending ST approval 3) Refer to outpatient RD/[facility] for diabetes education 4) Follow-up with cardiology, pulmonology, and nephrology 5) Continue to monitor I&O, labs, and skin integrity Expected Outcomes/Goals: 1) nutrition support to provide at least 75% estimated daily needs 2) labs and wound to improve 3) diet to advance 4) f/u in 2-3 days Date of Service: Nov 20, 2024 Billing Provider: MINI BALDWIN MD Common Visit Codes: [id number] CARE 30-74 MIN JULI HIGGINS RESIDENT Nov 20, 2024 12:51 MINI BALDWIN MD Nov 27, 2024 16:05
[2024-11-20 13:20] LABS: Iron 36.0 ug/dL (65-175); Total Iron Binding Capacity 186.0 ug/dL (250-425)
--- NOTE | 2024-11-20 13:22 | DVHPN2 ---
Progress Note Date Seen: Nov 20, 2024 Resident Creating Document: HARSHAD DURAN RESIDENT Has the PT tested + for MRSA If YES, has PT been informed?: No Medical Necessity Reason Pt with a Central, PICC or Fol: Yes The following are medically ne: Central Line, Balderrama Catheter Subjective Review of Systems Patient was seen and examined on the bedside. He is on ventilator with FiO2 30%, tidal volume 400 mL, peep 5 Objective vital signs Vital Sign Date Time Temp Pulse Resp B/P (MAP) Pulse Ox O2 Delivery O2 Flow Rate FiO2 11/20/24 10:13 94 19 148/72 (97) 95 30 11/20/24 08:00 Mechanical Ventilator+ 11/20/24 04:00 97.9 97.9 11/19/24 20:00 0 Total Intake and Output 11/19/24 11/19/24 11/20/24 15:00 23:00 07:00 Intake Total 208.265 ml 748.285 ml 584.22 ml Output Total 700 ml 650 ml Balance 208.265 ml 48.285 ml -65.78 ml medications Current Medications Medications Dose Ordered Sig/Cira Route Start Time Stop Time Status Last Admin Dose Admin Dextrose 50 ml UD PRN IV 11/12/24 13:00 Bisacodyl 10 mg DAILYP PRN HI 11/12/24 13:15 Enoxaparin Sodium 40 mg DAILY SC 11/13/24 10:00 UNV Patient Own Medication 1 tab QPM PO 11/12/24 18:00 UNV Patient Own Medication 1 tab BID PO 11/12/24 22:00 UNV Patient Own Medication 2 gm Q8HR IV 11/12/24 14:00 UNV Albuterol 2.5 mg Q4HPRN PRN NEB 11/14/24 12:30 11/19/24 13:57 2.5 MG Ipratropium [place] 0.5 mg Q4HR NEB 11/14/24 14:00 11/20/24 10:13 0.5 MG Midazolam HCl 50 ml @ 1 mls/hr Q24H IV 11/14/24 12:45 11/18/24 22:00 2 MLS/HR Fentanyl Citrate 250 ml @ 2.5 mls/hr Q24H IV 11/14/24 12:45 11/20/24 02:27 25 MLS/HR Norepinephrine Bitartrate 250 ml @ 3.75 mls/hr Q24H IV 11/14/24 13:00 11/19/24 17:59 3.75 MLS/HR Acetaminophen 650 mg Q6HP PRN PO 11/14/24 17:00 Diagnostic Test (Pha) 1 strip Q4HR 11/14/24 22:00 11/20/24 09:36 1 STRIP Methylprednisolone Sodium Succinate 40 mg DAILY IV 11/15/24 10:00 11/20/24 09:46 40 MG Atorvastatin Calcium 80 mg HS PO 11/15/24 08:00 11/19/24 22:24 80 MG Clopidogrel Bisulfate 75 mg DAILY PO 11/16/24 10:00 11/20/24 09:54 75 MG Pantoprazole Sodium 40 mg DAILY IV 11/16/24 10:00 11/20/24 09:45 40 MG Enteral Nutritional Formula 1,000 ml 30ML/HR GT 11/16/24 13:30 11/19/24 17:40 1,000 ML Cefepime HCl 50 ml @ 12.5 mls/hr DAILY IV 11/18/24 10:00 11/20/24 09:45 12.5 MLS/HR Clonazepam 1 mg BID PO 11/19/24 10:00 Lactulose 30 ml BID NG 11/19/24 22:00 11/20/24 09:54 30 ML Purified Water 200 ml Q4HR GT 11/19/24 18:00 11/20/24 09:54 200 ML Propofol 100 ml @ 1.83 mls/hr Q24H IV 11/19/24 17:00 11/19/24 17:21 1.83 MLS/HR Methadone HCl 10 mg Q8HR PO 11/19/24 22:00 Hold Enoxaparin Sodium 60 mg DAILY SC 11/20/24 10:00 Amiodarone HCL/ Dextrose 200 ml @ 16.66 mls/ hr Q12H IV 11/20/24 03:00 11/20/24 03:03 16.66 MLS/HR Insulin Human Lispro Q4HR SC 11/20/24 14:00 Examination Physical Exam General: RASS -1, afebrile, mucosae are moist Cardiovascular: Normal S1 and S2. No murmurs, gallops or rubs Respiratory: Mechanically assisted ventilation, equal bilateral airway entree. bilateral crackles Abdomen: Soft, nontender, no organomegaly, normal bowel sounds MSK/skin: Mobilization of limbs cannot be evaluated. Skin is dry and warm. Neurological: Orientation cannot be assessed. No apparent motor no sensitive deficits. Pupils are isocoric and reactive laboratory and microbiology Laboratory Tests 11/20/24 12:40 11/20/24 10:30 11/20/24 02:52 Test 11/20/24 02:52 Range/Units Serum Glucose 248 H 74-106 mg/dL Microbiology Date/Time Source Procedure Growth Status 11/14/24 17:00 Blood Blood Culture - Final NO GROWTH AFTER 5 DAYS OF INCUBATION. Complete 11/14/24 14:55 Nose MRSA Screen - Final Complete 11/14/24 14:55 Urine - Catheterized Urine Culture - Final Complete Labs and/or images reviewed: Labs reviewed by me, Image(s) reviewed by me Problem List/Assessment/Plan Problem List/Assessment/Plan Assessment and plan: # EREN in the setting of sepsis and septic shock likely prerenal, hemodynamically mediated # Sepsis due to bilateral multifocal pneumonia, likely Gram-positive/Gram-negative # Hypernatremia # Hyperphosphatemia # Acute hypoxic respiratory failure # Acute on chronic systolic heart failure with reduced ejection fraction # pulmonary edema due to above # possible NSTEMI type 1 # Type 2 diabetes mellitus with a hemoglobin A1c 8.3 Plan: - Kidney ultrasound revealed normal study - Iron study revealed low iron, TIBC and saturation - IV iron daily - Free water 200 mL q.4 hours - 24 hours urine output is 975 mL - continue IV antibiotic, heparin drip and other management as per primary - Appreciate cardiology consultation - Continue insulin lispro sliding scale q.4 hours - Strict I&O - Avoid nephrotoxic medication - Monitor BMP Thank you so much for the opportunity to consult on your patient. Nephro team will follow the patient. In case of any questions or concerns please feel free to reach out. Plan discussed with Dr. Zarate . The patient and caregiver team agreed to the plan. Addendum Patient seen and examined, plan discussed with resident. Agree with above, we will follow closely Plan discussed with: Other (RN) My Orders My Orders Orders - HARSHAD DURAN RESIDENT Procedure Category Date Status Time Free Water PHA 11/19/24 In Process 18:00 Ferritin LAB 11/20/24 In Process 09:50 Dietary Evaluation Review Comments: 1) Increase Glucerna 1.2 to 50 mL/hr goal rate as tolerated. Goal rate will provide 1440 kcals, 72g Pro, and 966 mL free H2O per 24 hrs. TF regimen will meet ~93% estimated energy needs and ~73% estimated protein needs 2) Advance to 45g CCHO 2g Na diet when medically feasible, pending ST approval 3) Refer to outpatient RD/[facility] for diabetes education 4) Follow-up with cardiology, pulmonology, and nephrology 5) Continue to monitor I&O, labs, and skin integrity Expected Outcomes/Goals: 1) nutrition support to provide at least 75% estimated daily needs 2) labs and wound to improve 3) diet to advance 4) f/u in 2-3 days HARSHAD DURAN RESIDENT Nov 20, 2024 13:22 SALVADOR ZARATE MD Nov 20, 2024 18:44
[2024-11-20] MEDS: INSULIN LISPRO (HUMAN) 100 UNITS/ML ML SC SCH (14:00)
[2024-11-20] MEDS ORDERED: AMIODARONE 360mg/200mL PREMIX 200 ML IV SCH (14:00)
[2024-11-20] MEDS: FUROSEMIDE 100 MG/10ML VIAL IV ONE (14:25)
[2024-11-20] MEDS: AMIODARONE HCL 200 MG TAB NG SCH (14:38)
[2024-11-20] MEDS: METHADONE HCL 10 MG TAB NG SCH (14:40)
--- NOTE | 2024-11-20 17:29 | DVHNC2 ---
Other Procedure Procedure Ultrasound-guided midline catheter insertion Indication Patient in ICU requiring additional peripheral access for administration of IV medications and fluids. Currently on multiple vasopressors via existing central line; midline indicated for concurrent non-pressor medication infusions, blood draws, and access preservation. Central line remains in use for vasoactive infusions. Anesthetic Local infiltration with 1% lidocaine, approximately 3 mL subcutaneously. Prep Right upper arm cleansed with chlorhexidine solution 3 and draped in sterile fashion. Success Procedure successful on first attempt. Good blood return and easy flush. No immediate complications noted. Informed consent obtained: Yes (Verbal consent obtained from healthcare proxy/family after discussion of indication, benefits, and potential risks including bleeding, infection, thrombosis, and catheter malfunction. Timeout performed per policy.) Risks, benefits, and alternati: Yes Notes Pre-Procedure * Patient Identification: Verified using two identifiers. * Timeout: Conducted per protocol prior to procedure. * Patient Position: Supine with right arm abducted and externally rotated. * Site Preparation: Right upper arm cleansed with chlorhexidine solution 3 and draped in sterile fashion. * Anesthesia: Local infiltration with 1% lidocaine, approximately 3 mL subcutaneously. Procedure Details * Technique: Ultrasound-guided venipuncture performed using sterile technique. * Site: Right basilic vein (midline location, above antecubital fossa). * Catheter Type: Single-lumen midline catheter (4 Fr, 15 cm). * Method: * Vein visualized and accessed under real-time ultrasound guidance. * Guidewire advanced smoothly without resistance. * Small skin vivienne made; introducer sheath advanced over the wire. * Catheter threaded to appropriate length (tip terminating at the axilla, not entering the central circulation). * Guidewire and introducer removed. * Catheter flushed with sterile saline confirming brisk blood return and easy flush. * Catheter secured with StatLock device and sterile transparent dressing applied. * Line labeled appropriately. Post-Procedure * Estimated Blood Loss: < 2 mL. * Complications: None. * Post-Procedure Assessment: Good blood return, flushed easily, no resistance, no swelling or bleeding at site. * Catheter Tip Location: Verified by measurement to remain within midline position (not central). * Disposition: Patient tolerated the procedure well; stable post-procedure. * Plan: * Midline catheter ready for immediate use. * Monitor site for redness, swelling, or leakage. * Routine line care per institutional policy. Date of Service: Nov 20, 2024 Billing Provider: MINI BALDWIN MD Common Visit Codes: PROCEDURE ONLY (07802) JULI HIGGINS RESIDENT Nov 20, 2024 17:29 MINI BALDWIN MD Nov 27, 2024 16:08
--- NOTE | 2024-11-20 21:21 | DVHPN2 ---
Progress Note - Dictate Date Seen: Nov 20, 2024 Has the PT tested + for MRSA If YES, has PT been informed?: No Medical Necessity Reason Pt with a Central, PICC or Fol: Yes The following are medically ne: Central Line, Balderrama Catheter Subjective Patient was seen and evaluated in follow up in the ICU. Patient is intubated and sedated on ventilator. 30% FiO2. Patient failed CPAP trial today. HGB 7.7, HCT 23.8, GLUC 211, Iron 36, % saturation 186. Chest x-ray showed slight interval decrease in pulmonary vascular congestion and bilateral pleural effusions, now small. vital signs Vital Sign Date Time Temp Pulse Resp B/P (MAP) Pulse Ox O2 Delivery O2 Flow Rate FiO2 11/20/24 10:13 94 19 148/72 (97) 95 30 11/20/24 08:00 Mechanical Ventilator+ 11/20/24 04:00 97.9 97.9 11/19/24 20:00 0 Total Intake and Output 11/19/24 11/19/24 11/20/24 15:00 23:00 07:00 Intake Total 208.265 ml 748.285 ml 584.22 ml Output Total 700 ml 650 ml Balance 208.265 ml 48.285 ml -65.78 ml medications Current Medications Medications Dose Ordered Sig/Cira Route Start Time Stop Time Status Last Admin Dose Admin Dextrose 50 ml UD PRN IV 11/12/24 13:00 Bisacodyl 10 mg DAILYP PRN RI 11/12/24 13:15 Enoxaparin Sodium 40 mg DAILY SC 11/13/24 10:00 UNV Patient Own Medication 1 tab QPM PO 11/12/24 18:00 UNV Patient Own Medication 1 tab BID PO 11/12/24 22:00 UNV Patient Own Medication 2 gm Q8HR IV 11/12/24 14:00 UNV Albuterol 2.5 mg Q4HPRN PRN NEB 11/14/24 12:30 11/20/24 13:45 2.5 MG Ipratropium [place] 0.5 mg Q4HR NEB 11/14/24 14:00 11/20/24 13:45 0.5 MG Midazolam HCl 50 ml @ 1 mls/hr Q24H IV 11/14/24 12:45 11/18/24 22:00 2 MLS/HR Fentanyl Citrate 250 ml @ 2.5 mls/hr Q24H IV 11/14/24 12:45 11/20/24 02:27 25 MLS/HR Norepinephrine Bitartrate 250 ml @ 3.75 mls/hr Q24H IV 11/14/24 13:00 11/19/24 17:59 3.75 MLS/HR Acetaminophen 650 mg Q6HP PRN PO 11/14/24 17:00 Diagnostic Test (Pha) 1 strip Q4HR 11/14/24 22:00 11/20/24 09:36 1 STRIP Methylprednisolone Sodium Succinate 40 mg DAILY IV 11/15/24 10:00 11/20/24 09:46 40 MG Atorvastatin Calcium 80 mg HS PO 11/15/24 08:00 11/19/24 22:24 80 MG Clopidogrel Bisulfate 75 mg DAILY PO 11/16/24 10:00 11/20/24 09:54 75 MG Pantoprazole Sodium 40 mg DAILY IV 11/16/24 10:00 11/20/24 09:45 40 MG Enteral Nutritional Formula 1,000 ml 30ML/HR GT 11/16/24 13:30 11/19/24 17:40 1,000 ML Cefepime HCl 50 ml @ 12.5 mls/hr DAILY IV 11/18/24 10:00 11/20/24 09:45 12.5 MLS/HR Clonazepam 1 mg BID PO 11/19/24 10:00 Lactulose 30 ml BID NG 11/19/24 22:00 11/20/24 09:54 30 ML Purified Water 200 ml Q4HR GT 11/19/24 18:00 11/20/24 09:54 200 ML Propofol 100 ml @ 1.83 mls/hr Q24H IV 11/19/24 17:00 11/19/24 17:21 1.83 MLS/HR Methadone HCl 10 mg Q8HR PO 11/19/24 22:00 Hold Enoxaparin Sodium 60 mg DAILY SC 11/20/24 10:00 Insulin Human Lispro Q4HR SC 11/20/24 14:00 Amiodarone HCL/ Dextrose 200 ml @ 16.66 mls/ hr Q12H IV 11/20/24 14:00 11/20/24 14:55 UNV Amiodarone HCl 200 mg Q12HR PO 11/20/24 14:00 UNV Methadone HCl 10 mg Q8HR PO 11/20/24 14:00 UNV Clonidine HCl 0.1 mg BID PO 11/20/24 22:00 UNV Quetiapine Fumarate 25 mg BID PO 11/20/24 22:00 UNV objective GENERAL: Intubated on ventilator. EYES: PERRL, EOMI. Anicteric. HENT: Moist mucous membranes. LUNGS: Decreased breath sounds. CARDIOVASCULAR: Regular rate and rhythm. ABDOMEN: Soft, nontender and nondistended. EXTREMITIES: No edema. SKIN: Warm, dry. laboratory and microbiology Laboratory Tests 11/20/24 12:40 11/20/24 10:30 11/20/24 02:52 Test 11/20/24 02:52 Range/Units Serum Glucose 248 H 74-106 mg/dL Problem List NSTEMI, likely type 1. ?Wellens syndrome. Rule out structural heart disease. Hypertension. Pneumonia. Type 2 diabetes mellitus. Acute kidney injury. History of tobacco use. Possible early-onset dementia. Assessment/Plan Continued all current supportive medical care. Plavix. Clonidine. Amiodarone. Diuretics with Lasix. IV antibiotics as ordered. GI prophylactics. Nebulized breathing treatments. Additional plan as per the hospital course. Critical care time of 45 minutes provided to include time spent evaluation of patient at bedside, when appropriate patient/family education for diagnosis, treatment plan, review of pertinent medical information and discussion of care with specialty providers and PCP. Mechanical ventilator parameters, treatment and adjustments have personally been reviewed by me and treatment plan by cost estimating engineer has also been reviewed. Dietary Evaluation Review Comments: 1) Increase Glucerna 1.2 to 50 mL/hr goal rate as tolerated. Goal rate will provide 1440 kcals, 72g Pro, and 966 mL free H2O per 24 hrs. TF regimen will meet ~93% estimated energy needs and ~73% estimated protein needs 2) Advance to 45g CCHO 2g Na diet when medically feasible, pending ST approval 3) Refer to outpatient RD/CDCES for diabetes education 4) Follow-up with cardiology, pulmonology, and nephrology 5) Continue to monitor I&O, labs, and skin integrity Expected Outcomes/Goals: 1) nutrition support to provide at least 75% estimated daily needs 2) labs and wound to improve 3) diet to advance 4) f/u in 2-3 days Plan discussed with: Other ZAMORA,MUKESHCHANDRA M MD Nov 20, 2024 14:00
[2024-11-20 22:10] LABS: Hemoglobin 8.0 g/dL (13.5-17.5)
[2024-11-20 22:12] LABS: Hematocrit 24.0 % (41.0-53.0)
[2024-11-21] VITALS (110 sets, daily range): BP systolic 57–164; BP diastolic 29–112; PULSE 49–127; RESP 10–35; TEMP 97.6–98.7; O2SAT 89–100
[2024-11-21 03:51] LABS: Hemoglobin 7.8 g/dL (13.5-17.5); Mean Corpuscular Hemoglobin 28.4 pg (28.0-32.0); Mean Corpuscular Volume 85.1 fL (80.0-100.0); Nucleated Red Blood Cells % 0.0 %
[2024-11-21 03:55] LABS: Hematocrit 23.5 % (41.0-53.0)
[2024-11-21 04:17] LABS: Alanine Aminotransferase 12 U/L (7-40); Alkaline Phosphatase 107 U/L (46-116); Anion Gap 10 (5-15); BUN/Creatinine Ratio 24.1 (10.0-20.0); Bilirubin, Total 0.3 mg/dL (0.2-1.0); Carbon Dioxide 23 mmol/L (20-31); Magnesium 2.1 mg/dL (1.6-2.6); Potassium 4.3 mmol/L (3.5-5.1); Sodium 143 mmol/L (136-145); Total Protein 6.7 g/dL (5.7-8.2)
[2024-11-21 04:20] LABS: Albumin 3.2 g/dL (3.2-4.8); Blood Urea Nitrogen 58 mg/dL (9-23); Calcium 8.0 mg/dL (8.7-10.4); Chloride 110 mmol/L (98-107); Glucose 175 mg/dL (74-106)
--- NOTE | 2024-11-21 05:03 | DVH ---
CHEST RADIOGRAPH Indication: Acute hypoxic respi failure Technique: Single frontal view of the chest was obtained COMPARISON: XY CHEST XRAY 1 VIEW on DOS: 11/20/24, XY CHEST XRAY 1 VIEW on DOS: 11/19/24, XY CHEST XR AY 1 VIEW on DOS: 11/18/24, XY CHEST PORTABLE on DOS: 11/17/24, XY CHEST XRAY 1 VIEW on DOS: 11/16/24 FINDINGS: Lines and Tubes: Interval advancement of the endotracheal tube such that the tip now projects approxi mately 1.5 cm above the level of the kassie. Remaining lines and tubes unchanged. Lungs: Interval progression in diffuse bilateral pulmonary opacities consistent with multifocal pulmo nary airspace disease and increased prominence of the pulmonary vasculature and interstitium. Progres sively worsening right pleural effusion is now moderate and there is persistent small left pleural ef fusion. No pneumothorax. Cardiomediastinal contours: Unremarkable Bones: Unremarkable IMPRESSION: 1. Interval advancement of the endotracheal tube with the tip now projecting approximately 1.5 cm abo ve the level of the kassie. Remaining lines and tubes unchanged. 2. Interval progression in diffuse bilateral pulmonary opacities consistent with multifocal pulmonary airspace disease and increased prominence of the pulmonary vasculature and interstitium. 3. Progressive now moderate right pleural effusion and small left pleural effusion.
--- NOTE | 2024-11-21 05:09 | DVH ---
EXAM: CT HEAD WITHOUT CONTRAST INDICATION: Evalute for bleeding TECHNIQUE: CT of the head without intravenous contrast. Radiation Dose : 1. Head: CT Dose: CTDI volume is 56.38 mGy. Dose-length product is 1.71 mGy*cm The dose indicators for CT are the volume Computed Tomography (CT) Dose Index (CTDIvol) and the Dose Length Product (DLP), and are measured in units of mGy and mGy-cm, respectively. These indicators are not patient dose, but values generated from the CT scanner acquisition factors. The report includes radiation exposure data for exposures received during this examination. COMPARISON: CT HEAD WITHOUT CONTRAST on DOS: 11/15/24 FINDINGS: There is no evidence of acute intracranial hemorrhage, extra-axial collection, mass effect, midline s hift, herniation or hydrocephalus. The ventricles, sulci and cisterns are age appropriate. The conteh-white differentiation is intact. Patchy periventricular and subcortical white matter hypoattenuation is nonspecific but may be related to small vessel ischemic disease. The visualized paranasal sinuses and mastoid air cells are clear. The surrounding soft tissues and osseous structures are unremarkable. IMPRESSION: No acute intracranial abnormality. Radiation optimization: All CT scans at this facility use at least one of these dose optimization nanda hniques: automated exposure control mA and/or kV adjustment per patient size (includes targeted exam s where dose is matched to clinical indication) or iterative reconstruction.
--- NOTE | 2024-11-21 07:49 | ECG ---
[facility] Test Date: 2024-11-12 Test Time: 11:35:31 Pat Name: CHALO DIXON Department: [facility] Room: 0201T Gender: M Edi Coordinator: gp : 1950 Requested By: DELROY ANGELES Order Number: [id number] Reading MD: Mikhail Mcclendon Measurements Intervals [place] Rate: 105 P: 77 [place]: 170 QRS: 23 QRSD: 95 T: -22 QT: 357 QTc: 472 Interpretive Statements Sinus tachycardia Multiform ventricular premature complexes Probable inferior infarct, age indeterminate Baseline wander in lead(s) II,III,aVR,aVF Electronically Signed On 11-23-2024 17:51:45 PDT by Mikhail Mcclendon Please click the below link to view image of tracing.
--- NOTE | 2024-11-21 07:49 | ECG ---
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
[2024-11-21] MEDS ORDERED: MIDAZOLAM HCL 2MG/2ML 2ml VIAL (1mg/ml) IV PRN (09:00)
[2024-11-21 09:43] LABS: Base Excess -4.3 mmol/L (-2.0-3.0)
[2024-11-21 10:42] LABS: Hematocrit 23.2 % (41.0-53.0); Hemoglobin 7.5 g/dL (13.5-17.5)
[2024-11-21] MEDS ORDERED: IRON SUCROSE COMPLEX 110 ML IV SCH (12:00)
--- NOTE | 2024-11-21 14:53 | DVHPNRES ---
Progress Note Date Seen: Nov 21, 2024 Resident Creating Document: JULI HIGGINS RESIDENT Has the PT tested + for MRSA If YES, has PT been informed?: No Medical Necessity Reason Pt with a Central, PICC or Fol: Yes The following are medically ne: Central Line, Balderrama Catheter Subjective Review of Systems Overnight, the patient is extremely weak and minimally responsive. Current vitals: BP 133/67, HR 55, RR 1521, SpO? 9495% on FiO? 30%. No new fevers or hemodynamic instability noted. Labs: WBC 10.0 (normal), Hgb 7.8 (low), Hct 23.5 (low), Plt 428 (normal), BUN 58 (?), Cr 2.41 (?), BUN/Cr ratio 24.1 (?), Ca 8.0 (low). ABG: pH 7.428, pCO? 29.1 (?), pO? 79.7 (?), HCO? 18.8 (?), O? sat 94.8%. EKG: new ST-segment depression consistent with ongoing myocardial ischemia (NSTEMI type I, medically managed). Chest X-ray: interval increase in bilateral pulmonary opacities consistent with multifocal pneumonia and pulmonary vascular congestion, along with progressive bilateral pleural effusions (moderate right and left). The patient remains on mechanical ventilation (AC/VC mode 400/20/PEEP 5, FiO? 30%). Current medications include: Insulin sliding scale, Bisacodyl, Ipratropium-Albuterol nebs, Clonidine, Methadone 10 mg q8h, Amiodarone 200 mg BID, Lovenox, Propofol, Lactulose 30 mL BID, Midazolam/Versed PRN, Clonazepam 1 mg q12h, Cefepime, Glucerna feeds, and Protonix 40 mg IV daily. Family / Goals of Care: and son contacted regarding patients critical status and poor prognosis. plans to come tomorrow for palliative extubation. Until then, patient remains on full ventilatory support with no escalation of care or aggressive interventions. REVIEW OF SYSTEMS (limited by sedation and intubation) General Sedated, cachectic, critically ill. Respiratory Mechanically ventilated, FiO? 30%. Cardiac ST-segment depression noted. GI Tube feeds tolerated; on bowel regimen. Balderrama catheter in place; urine output adequate. Neuro Sedated, minimally responsive. Skin Intact; trace edema. Objective vital signs Vital Sign Date Time Temp Pulse Resp B/P (MAP) Pulse Ox O2 Delivery O2 Flow Rate FiO2 11/21/24 14:23 63 18 117/61 (79) 98 30 11/21/24 12:00 Mechanical Ventilator+ 11/21/24 12:00 97.8 97.8 11/19/24 20:00 0 Total Intake and Output 11/20/24 11/20/24 11/21/24 15:00 23:00 07:00 Intake Total 357.280 ml 935.74 ml 925.00 ml Output Total 800 ml 750 ml Balance 357.280 ml 135.74 ml 175.00 ml medications Current Medications Medications Dose Ordered Sig/Cira Route Start Time Stop Time Status Last Admin Dose Admin Dextrose 50 ml UD PRN IV 11/12/24 13:00 Bisacodyl 10 mg DAILYP PRN MD 11/12/24 13:15 Enoxaparin Sodium 40 mg DAILY SC 11/13/24 10:00 UNV Patient Own Medication 1 tab QPM PO 11/12/24 18:00 UNV Patient Own Medication 1 tab BID PO 11/12/24 22:00 UNV Patient Own Medication 2 gm Q8HR IV 11/12/24 14:00 UNV Albuterol 2.5 mg Q4HPRN PRN NEB 11/14/24 12:30 11/21/24 14:23 2.5 MG Ipratropium [place] 0.5 mg Q4HR NEB 11/14/24 14:00 11/21/24 14:23 0.5 MG Midazolam HCl 50 ml @ 1 mls/hr Q24H IV 11/14/24 12:45 11/18/24 22:00 2 MLS/HR Fentanyl Citrate 250 ml @ 2.5 mls/hr Q24H IV 11/14/24 12:45 11/21/24 02:30 12.5 MLS/HR Norepinephrine Bitartrate 250 ml @ 3.75 mls/hr Q24H IV 11/14/24 13:00 11/19/24 17:59 3.75 MLS/HR Acetaminophen 650 mg Q6HP PRN PO 11/14/24 17:00 Diagnostic Test (Pha) 1 strip Q4HR 11/14/24 22:00 11/21/24 10:10 1 STRIP Methylprednisolone Sodium Succinate 40 mg DAILY IV 11/15/24 10:00 11/20/24 09:46 40 MG Atorvastatin Calcium 80 mg HS PO 11/15/24 08:00 11/20/24 21:47 80 MG Clopidogrel Bisulfate 75 mg DAILY PO 11/16/24 10:00 11/21/24 10:00 75 MG Pantoprazole Sodium 40 mg DAILY IV 11/16/24 10:00 11/21/24 09:59 40 MG Enteral Nutritional Formula 1,000 ml 30ML/HR GT 11/16/24 13:30 11/20/24 18:03 1,000 ML Cefepime HCl 50 ml @ 12.5 mls/hr DAILY IV 11/18/24 10:00 11/21/24 10:10 12.5 MLS/HR Clonazepam 1 mg BID PO 11/19/24 10:00 11/21/24 10:00 1 MG Lactulose 30 ml BID NG 11/19/24 22:00 11/21/24 09:59 30 ML Propofol 100 ml @ 1.83 mls/hr Q24H IV 11/19/24 17:00 11/20/24 15:43 3.66 MLS/HR Methadone HCl 10 mg Q8HR PO 11/19/24 22:00 Hold Enoxaparin Sodium 60 mg DAILY SC 11/20/24 10:00 Insulin Human Lispro Q4HR SC 11/20/24 14:00 11/21/24 10:17 2 UNITS Amiodarone HCl 200 mg Q12HR NG 11/20/24 14:00 11/21/24 09:59 200 MG Methadone HCl 10 mg Q8HR 11/20/24 14:00 11/21/24 06:39 10 MG Clonidine HCl 0.1 mg BID PO 11/20/24 22:00 11/20/24 21:50 0.1 MG Quetiapine Fumarate 25 mg BID PO 11/20/24 22:00 11/21/24 10:01 25 MG Midazolam HCl 2 mg Q2HP PRN IV 11/21/24 09:00 Examination General: Critically ill, intubated, sedated, cachectic. HEENT: Pupils equal/reactive; ETT and OG tube in place. Neck: No JVD, central line intact. Cardiac: Regular rhythm, HR 90s, no murmur, no gallop. Respiratory: Mechanically ventilated; decreased air entry bilaterally with coarse crackles at bases. Abdomen: Soft, non-tender, mildly distended. Extremities: Trace bilateral pedal edema. Pulses palpable. Neuro: Sedated, non-responsive to verbal stimuli. Skin: Warm, intact, no new breakdown. laboratory and microbiology Laboratory Tests 11/21/24 10:06 11/21/24 03:25 Test 11/21/24 03:25 Range/Units Serum Glucose 175 H 74-106 mg/dL Microbiology Date/Time Source Procedure Growth Status 11/14/24 17:00 Blood Blood Culture - Final NO GROWTH AFTER 5 DAYS OF INCUBATION. Complete 11/14/24 14:55 Nose MRSA Screen - Final Complete 11/14/24 14:55 Urine - Catheterized Urine Culture - Final Complete Problem List/Assessment/Plan Problem List/Assessment/Plan Assessment Acute hypoxic respiratory failure secondary to multifocal pneumonia and decompensated HFrEF (EF 30%) patient remains ventilator-dependent; palliative extubation planned tomorrow when family present. Septic Shock likely secondary to MSSA bacteremia/osteomyelitis; on norepinephrine and broad-spectrum antibiotics (Cefepime). 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 Acute Kidney Injury (Stage 2) likely multifactorial (sepsis, contrast, low perfusion); GFR 48, Cr 1.52./VMN Bilateral pleural effusions with progressive pulmonary vascular congestion conservative management given poor prognosis. Multifocal pneumonia persistent opacities on imaging; continue cefepime. Metabolic Encephalopathy secondary to sepsis and sedation. Osteomyelitis (MSSA) prior bone biopsy and cultures positive, on cefepime. Type 2 Diabetes Mellitus on insulin sliding scale. Hypertension on hold due to current shock. Dementia baseline per . Hypocalcemia and Hyperphosphatemia due to EREN. Malnutrition / weight loss on tube feeds, dose increased. DNR chemical code only.confirmed with family.; palliative extubation planned. Possible Ileus abdominal distension, non-obstructive bowel gas on KUB.Starting Lactulose System-[place] Plan Neurology / Palliative: Continue light sedation (Propofol, Midazolam PRN). Maintain comfort with Methadone and Clonazepam. Avoid agitation; maintain RASS -2 to -3.? Prepare for palliative extubation tomorrow once family present. Continue communication with family; palliative care consult reinforced. Cardiology: Continue Amiodarone 200 mg PO BID, Plavix 75 mg daily, Atorvastatin 80 mg daily. Continue Lovenox for anticoagulation.?No escalation or invasive intervention per goals of care. Monitor for bradyarrhythmia or further ST changes. Respiratory: Maintain current ventilator settings (ACVC 400/20/PEEP 5/FiO? 30%). Continue Albuterol/Ipratropium nebs Q4H. Daily ABG and chest X-ray. Plan for palliative extubation tomorrow under comfort protocol. Renal / Electrolytes: Monitor UOP and renal function. Avoid nephrotoxins. BMP q12h; replace electrolytes as needed (maintain K >4, Mg >2, Ca >8).?No dialysis per current goals of care. GI / Nutrition: Continue Glucerna tube feeds until extubation. Continue Lactulose 30 mL BID and Bisacodyl for bowel regimen. Continue Pantoprazole IV daily for GI prophylaxis. Hematology: Monitor CBC daily. Transfuse PRBC if Hgb <7 or symptomatic. Continue Lovenox for DVT prophylaxis. Infectious Disease: Continue Cefepime IV q12h. Monitor for fever or rising WBC. Endocrine:Continue insulin sliding scale with glucose goal 117007 mg/dL. Prophylaxis / Comfort: DVT: Lovenox (therapeutic). GI: Pantoprazole IV daily. Skin: Turn q2h, maintain air mattress. Pain/comfort: Methadone scheduled, Clonazepam PRN. Condition / Prognosis * Critical, guarded prognosis. * Multi-organ involvement (cardiac ischemia, septic shock, EREN, respiratory failure). * Continue aggressive supportive care per familys wishes (medical management only). CODE STATUS: CHEMICAL CODE CONDITION / PROGNOSIS?Critically ill, very poor prognosis due to multi-organ dysfunction, respiratory failure, and ischemic cardiomyopathy. Awaiting wifes arrival for palliative extubation tomorrow. No escalation of care per family wishes. Case discussed in detail with the attending physician, including the clinical presentation, diagnostic workup, and comprehensive management plan. The patients family was updated and demonstrated understanding of his condition and the proposed plan. CRITICAL CARE TIME > 45 MINUTES Plan discussed with: Spouse My Orders My Orders Orders - JULI HIGGINS RESIDENT Procedure Category Date Status Time Midazolam Injection PHA 11/21/24 In Process (Versed Injection) 09:00 Complete Blood Count LAB 11/22/24 Verified 04:00 Comprehensive LAB 11/22/24 Verified Metabolic Panel 04:00 Chest Xray 1 View XY 11/22/24 Logged 04:00 Abg W/ Co-Ox RT 11/22/24 Logged 04:00 Dietary Evaluation Review Comments: 1) Increase Glucerna 1.2 to 50 mL/hr goal rate as tolerated. Goal rate will provide 1440 kcals, 72g Pro, and 966 mL free H2O per 24 hrs. TF regimen will meet ~93% estimated energy needs and ~73% estimated protein needs 2) Advance to 45g CCHO 2g Na diet when medically feasible, pending ST approval 3) Refer to outpatient RD/CDCES for diabetes education 4) Follow-up with cardiology, pulmonology, and nephrology 5) Continue to monitor I&O, labs, and skin integrity Expected Outcomes/Goals: 1) nutrition support to provide at least 75% estimated daily needs 2) labs and wound to improve 3) diet to advance 4) f/u in 2-3 days Date of Service: Nov 21, 2024 Billing Provider: MINI BALDWIN MD Common Visit Codes: 10675-[id number] CARE 30-74 MIN JULI HIGGINS RESIDENT Nov 21, 2024 14:53 MINI BALDWIN MD Nov 27, 2024 16:06
--- NOTE | 2024-11-21 17:39 | DVHPN2 ---
Progress Note Date Seen: Nov 21, 2024 Resident Creating Document: HARSHAD DURAN RESIDENT Has the PT tested + for MRSA If YES, has PT been informed?: No Medical Necessity Reason Pt with a Central, PICC or Fol: Yes The following are medically ne: Central Line, Balderrama Catheter Subjective Review of Systems Patient was seen and examined on the bedside. He is on ventilator with FiO2 30%, tidal volume 400 mL, peep 5 Objective vital signs Vital Sign Date Time Temp Pulse Resp B/P (MAP) Pulse Ox O2 Delivery O2 Flow Rate FiO2 11/21/24 16:30 117 24 154/82 (106) 93 11/21/24 16:00 97.8 97.8 11/21/24 15:53 65 11/21/24 12:00 Mechanical Ventilator+ 11/19/24 20:00 0 Total Intake and Output 11/20/24 11/20/24 11/21/24 15:00 23:00 07:00 Intake Total 357.280 ml 935.74 ml 925.00 ml Output Total 800 ml 750 ml Balance 357.280 ml 135.74 ml 175.00 ml medications Current Medications Medications Dose Ordered Sig/Cira Route Start Time Stop Time Status Last Admin Dose Admin Dextrose 50 ml UD PRN IV 11/12/24 13:00 Bisacodyl 10 mg DAILYP PRN SC 11/12/24 13:15 Enoxaparin Sodium 40 mg DAILY SC 11/13/24 10:00 UNV Patient Own Medication 1 tab QPM PO 11/12/24 18:00 UNV Patient Own Medication 1 tab BID PO 11/12/24 22:00 UNV Patient Own Medication 2 gm Q8HR IV 11/12/24 14:00 UNV Albuterol 2.5 mg Q4HPRN PRN NEB 11/14/24 12:30 11/21/24 14:23 2.5 MG Ipratropium [place] 0.5 mg Q4HR NEB 11/14/24 14:00 11/21/24 14:23 0.5 MG Midazolam HCl 50 ml @ 1 mls/hr Q24H IV 11/14/24 12:45 11/18/24 22:00 2 MLS/HR Fentanyl Citrate 250 ml @ 2.5 mls/hr Q24H IV 11/14/24 12:45 11/21/24 02:30 12.5 MLS/HR Norepinephrine Bitartrate 250 ml @ 3.75 mls/hr Q24H IV 11/14/24 13:00 11/21/24 15:01 11.25 MLS/HR Acetaminophen 650 mg Q6HP PRN PO 11/14/24 17:00 Diagnostic Test (Pha) 1 strip Q4HR 11/14/24 22:00 11/21/24 15:00 1 STRIP Methylprednisolone Sodium Succinate 40 mg DAILY IV 11/15/24 10:00 11/20/24 09:46 40 MG Atorvastatin Calcium 80 mg HS PO 11/15/24 08:00 11/20/24 21:47 80 MG Clopidogrel Bisulfate 75 mg DAILY PO 11/16/24 10:00 11/21/24 10:00 75 MG Pantoprazole Sodium 40 mg DAILY IV 11/16/24 10:00 11/21/24 09:59 40 MG Enteral Nutritional Formula 1,000 ml 30ML/HR GT 11/16/24 13:30 11/21/24 15:32 1,000 ML Cefepime HCl 50 ml @ 12.5 mls/hr DAILY IV 11/18/24 10:00 11/21/24 10:10 12.5 MLS/HR Clonazepam 1 mg BID PO 11/19/24 10:00 11/21/24 10:00 1 MG Lactulose 30 ml BID NG 11/19/24 22:00 11/21/24 09:59 30 ML Propofol 100 ml @ 1.83 mls/hr Q24H IV 11/19/24 17:00 11/20/24 15:43 3.66 MLS/HR Methadone HCl 10 mg Q8HR PO 11/19/24 22:00 Hold Enoxaparin Sodium 60 mg DAILY SC 11/20/24 10:00 Insulin Human Lispro Q4HR SC 11/20/24 14:00 11/21/24 10:17 2 UNITS Amiodarone HCl 200 mg Q12HR NG 11/20/24 14:00 11/21/24 09:59 200 MG Methadone HCl 10 mg Q8HR NG 11/20/24 14:00 11/21/24 06:39 10 MG Clonidine HCl 0.1 mg BID PO 11/20/24 22:00 11/20/24 21:50 0.1 MG Quetiapine Fumarate 25 mg BID PO 11/20/24 22:00 11/21/24 10:01 25 MG Midazolam HCl 2 mg Q2HP PRN IV 11/21/24 09:00 Examination Physical Exam General: RASS -1, afebrile, mucosae are moist Cardiovascular: Normal S1 and S2. No murmurs, gallops or rubs Respiratory: Mechanically assisted ventilation, equal bilateral airway entree. bilateral crackles Abdomen: Soft, nontender, no organomegaly, normal bowel sounds MSK/skin: Mobilization of limbs cannot be evaluated. Skin is dry and warm. Neurological: Orientation cannot be assessed. No apparent motor no sensitive deficits. Pupils are isocoric and reactive laboratory and microbiology Laboratory Tests 11/21/24 10:06 11/21/24 03:25 Test 11/21/24 03:25 Range/Units Serum Glucose 175 H 74-106 mg/dL Microbiology Date/Time Source Procedure Growth Status 11/14/24 17:00 Blood Blood Culture - Final NO GROWTH AFTER 5 DAYS OF INCUBATION. Complete 11/14/24 14:55 Nose MRSA Screen - Final Complete 11/14/24 14:55 Urine - Catheterized Urine Culture - Final Complete Labs and/or images reviewed: Labs reviewed by me, Image(s) reviewed by me Problem List/Assessment/Plan Problem List/Assessment/Plan Assessment and plan: # EREN in the setting of sepsis and septic shock likely prerenal, hemodynamically mediated # Sepsis due to bilateral multifocal pneumonia, likely Gram-positive/Gram-negative # Hypernatremia resolved # Hyperphosphatemia # Acute hypoxic respiratory failure # Acute on chronic systolic heart failure with reduced ejection fraction # pulmonary edema due to above # moderate right-sided pleural effusion # possible NSTEMI type 1 # Type 2 diabetes mellitus with a hemoglobin A1c 8.3 Plan: - Worsening kidney function with good urinary output. - Kidney ultrasound revealed normal study - Iron study revealed low iron, TIBC and saturation - continue IV antibiotic, heparin drip and other management as per primary - Appreciate cardiology consultation - Continue insulin lispro sliding scale q.4 hours - Strict I&O - Avoid nephrotoxic medication - Monitor BMP - Waiting for the family to discuss palliative extubation by the primary Thank you so much for the opportunity to consult on your patient. Nephro team will follow the patient. In case of any questions or concerns please feel free to reach out. Plan discussed with Dr. Zarate . The patient and caregiver team agreed to the plan. Addendum Patient seen and examined, plan discussed with resident. Agree with above, we will follow closely pending family decision for terminal wean Plan discussed with: Other (RN) Dietary Evaluation Review Comments: 1) Increase Glucerna 1.2 to 50 mL/hr goal rate as tolerated. Goal rate will provide 1440 kcals, 72g Pro, and 966 mL free H2O per 24 hrs. TF regimen will meet ~93% estimated energy needs and ~73% estimated protein needs 2) Advance to 45g CCHO 2g Na diet when medically feasible, pending ST approval 3) Refer to outpatient RD/[facility] for diabetes education 4) Follow-up with cardiology, pulmonology, and nephrology 5) Continue to monitor I&O, labs, and skin integrity Expected Outcomes/Goals: 1) nutrition support to provide at least 75% estimated daily needs 2) labs and wound to improve 3) diet to advance 4) f/u in 2-3 days HARSHAD DURAN Nov 21, 2024 17:39 SALVADOR ZARATE MD Nov 21, 2024 22:05
[2024-11-21] MEDS: METHADONE HCL 10 MG TAB PO SCH (22:03)
--- NOTE | 2024-11-21 22:16 | DVHPN2 ---
Progress Note - Dictate Date Seen: Nov 21, 2024 Has the PT tested + for MRSA If YES, has PT been informed?: No Medical Necessity Reason Pt with a Central, PICC or Fol: Yes The following are medically ne: Central Line, Balderrama Catheter Subjective Patient was seen and evaluated in follow up in the ICU. Patient is intubated and sedated on ventilator. 40% FiO2. HGB 7.5, HCT 23.2, CL 110, BUN 58, PROTOTYPE MACHINIST 2.41, CA 8. Chest x-ray shows interval progression in diffuse bilateral pulmonary opacities consistent with multifocal pulmonary airspace disease and increased prominence of the pulmonary vasculature and interstitium and progressive now moderate right pleural effusion and small left pleural effusion. vital signs Vital Sign Date Time Temp Pulse Resp B/P (MAP) Pulse Ox O2 Delivery O2 Flow Rate FiO2 11/21/24 12:16 66 18 120/62 (81) 98 40 11/21/24 06:00 Mechanical Ventilator+ 11/21/24 05:00 97.6 97.6 11/19/24 20:00 0 Total Intake and Output 11/20/24 11/20/24 11/21/24 15:00 23:00 07:00 Intake Total 357.280 ml 935.74 ml 910.00 ml Output Total 800 ml 750 ml Balance 357.280 ml 135.74 ml 160.00 ml medications Current Medications Medications Dose Ordered Sig/Cira Route Start Time Stop Time Status Last Admin Dose Admin Dextrose 50 ml UD PRN IV 11/12/24 13:00 Bisacodyl 10 mg DAILYP PRN LA 11/12/24 13:15 Enoxaparin Sodium 40 mg DAILY SC 11/13/24 10:00 UNV Patient Own Medication 1 tab QPM PO 11/12/24 18:00 UNV Patient Own Medication 1 tab BID PO 11/12/24 22:00 UNV Patient Own Medication 2 gm Q8HR IV 11/12/24 14:00 UNV Albuterol 2.5 mg Q4HPRN PRN NEB 11/14/24 12:30 11/21/24 10:36 2.5 MG Ipratropium [place] 0.5 mg Q4HR NEB 11/14/24 14:00 11/21/24 10:36 0.5 MG Midazolam HCl 50 ml @ 1 mls/hr Q24H IV 11/14/24 12:45 11/18/24 22:00 2 MLS/HR Fentanyl Citrate 250 ml @ 2.5 mls/hr Q24H IV 11/14/24 12:45 11/21/24 02:30 12.5 MLS/HR Norepinephrine Bitartrate 250 ml @ 3.75 mls/hr Q24H IV 11/14/24 13:00 11/19/24 17:59 3.75 MLS/HR Acetaminophen 650 mg Q6HP PRN PO 11/14/24 17:00 Diagnostic Test (Pha) 1 strip Q4HR 11/14/24 22:00 11/21/24 10:10 1 STRIP Methylprednisolone Sodium Succinate 40 mg DAILY IV 11/15/24 10:00 11/20/24 09:46 40 MG Atorvastatin Calcium 80 mg HS PO 11/15/24 08:00 11/20/24 21:47 80 MG Clopidogrel Bisulfate 75 mg DAILY PO 11/16/24 10:00 11/21/24 10:00 75 MG Pantoprazole Sodium 40 mg DAILY IV 11/16/24 10:00 11/21/24 09:59 40 MG Enteral Nutritional Formula 1,000 ml 30ML/HR GT 11/16/24 13:30 11/20/24 18:03 1,000 ML Cefepime HCl 50 ml @ 12.5 mls/hr DAILY IV 11/18/24 10:00 11/21/24 10:10 12.5 MLS/HR Clonazepam 1 mg BID PO 11/19/24 10:00 11/21/24 10:00 1 MG Lactulose 30 ml BID NG 11/19/24 22:00 11/21/24 09:59 30 ML Propofol 100 ml @ 1.83 mls/hr Q24H IV 11/19/24 17:00 11/20/24 15:43 3.66 MLS/HR Methadone HCl 10 mg Q8HR PO 11/19/24 22:00 Hold Enoxaparin Sodium 60 mg DAILY SC 11/20/24 10:00 Insulin Human Lispro Q4HR SC 11/20/24 14:00 11/21/24 10:17 2 UNITS Amiodarone HCl 200 mg Q12HR NG 11/20/24 14:00 11/21/24 09:59 200 MG Methadone HCl 10 mg Q8HR NG 11/20/24 14:00 11/21/24 06:39 10 MG Clonidine HCl 0.1 mg BID PO 11/20/24 22:00 11/20/24 21:50 0.1 MG Quetiapine Fumarate 25 mg BID PO 11/20/24 22:00 11/21/24 10:01 25 MG Midazolam HCl 2 mg Q2HP PRN IV 11/21/24 09:00 objective GENERAL: Intubated on ventilator. EYES: PERRL, EOMI. Anicteric. HENT: Moist mucous membranes. LUNGS: Decreased breath sounds. CARDIOVASCULAR: Regular rate and rhythm. ABDOMEN: Soft, nontender and nondistended. EXTREMITIES: No edema. SKIN: Warm, dry. laboratory and microbiology Laboratory Tests 11/21/24 10:06 11/21/24 03:25 Test 11/21/24 03:25 Range/Units Serum Glucose 175 H 74-106 mg/dL Problem List NSTEMI, likely type 1. ?Wellens syndrome. Rule out structural heart disease. Hypertension. Pneumonia. Type 2 diabetes mellitus. Acute kidney injury. History of tobacco use. Possible early-onset dementia. Assessment/Plan Continued all current supportive medical care. Plavix. Amiodarone. IV antibiotics as ordered. GI prophylactics. Nebulized breathing treatments. Additional plan as per the hospital course. Critical care time of 45 minutes provided to include time spent evaluation of patient at bedside, when appropriate patient/family education for diagnosis, treatment plan, review of pertinent medical information and discussion of care with specialty providers and PCP. Mechanical ventilator parameters, treatment and adjustments have personally been reviewed by me and treatment plan by photographic process worker has also been reviewed. Dietary Evaluation Review Comments: 1) Increase Glucerna 1.2 to 50 mL/hr goal rate as tolerated. Goal rate will provide 1440 kcals, 72g Pro, and 966 mL free H2O per 24 hrs. TF regimen will meet ~93% estimated energy needs and ~73% estimated protein needs 2) Advance to 45g CCHO 2g Na diet when medically feasible, pending ST approval 3) Refer to outpatient RD/[facility] for diabetes education 4) Follow-up with cardiology, pulmonology, and nephrology 5) Continue to monitor I&O, labs, and skin integrity Expected Outcomes/Goals: 1) nutrition support to provide at least 75% estimated daily needs 2) labs and wound to improve 3) diet to advance 4) f/u in 2-3 days Plan discussed with: Other ANJU ZAMORA MD Nov 21, 2024 12:25
[2024-11-21 23:46] LABS: Hematocrit 25.1 % (41.0-53.0); Hemoglobin 8.3 g/dL (13.5-17.5)
[2024-11-22] VITALS (80 sets, daily range): BP systolic 58–169; BP diastolic 22–102; PULSE 57–126; RESP 14–31; TEMP 97.8–98.6; O2SAT 71–100
[2024-11-22 03:53] LABS: Hematocrit 20.7 % (41.0-53.0); Mean Corpuscular Volume 86.8 fL (80.0-100.0); Nucleated Red Blood Cells % 0.0 %
[2024-11-22 03:56] LABS: Mean Corpuscular Hemoglobin 28.3 pg (28.0-32.0)
[2024-11-22 03:58] LABS: Hemoglobin 6.7 g/dL (13.5-17.5)
[2024-11-22 04:09] LABS: Alanine Aminotransferase 10 U/L (7-40); Alkaline Phosphatase 94 U/L (46-116); Anion Gap 15 (5-15); BUN/Creatinine Ratio 19.7 (10.0-20.0); Bilirubin, Total 0.3 mg/dL (0.2-1.0)
[2024-11-22 04:11] LABS: Albumin 2.6 g/dL (3.2-4.8); Blood Urea Nitrogen 57 mg/dL (9-23); Calcium 7.4 mg/dL (8.7-10.4); Carbon Dioxide 19 mmol/L (20-31); Chloride 111 mmol/L (98-107); Glucose 120 mg/dL (74-106); Potassium 3.3 mmol/L (3.5-5.1); Sodium 145 mmol/L (136-145); Total Protein 5.5 g/dL (5.7-8.2)
--- NOTE | 2024-11-22 06:01 | DVH ---
CHEST RADIOGRAPH Indication: Acute hypoxic respiratory failure Technique: Single frontal view of the chest was obtained COMPARISON: XY CHEST XRAY 1 VIEW on DOS: 11/21/24, XY CHEST XRAY 1 VIEW on DOS: 11/20/24, XY CHEST XR AY 1 VIEW on DOS: 11/19/24, XY CHEST XRAY 1 VIEW on DOS: 11/18/24, XY CHEST PORTABLE on DOS: 11/17/24 FINDINGS: Lines and Tubes: Unchanged. Lungs: Grossly stable appearing diffuse bilateral pulmonary airspace disease and increased prominence of the pulmonary vasculature. Bilateral pleural effusions, [id number]-left, stable in appea edmund. No pneumothorax. Cardiomediastinal contours: Cardiomegaly. Bones: Unremarkable IMPRESSION: 1. Stable diffuse bilateral pulmonary airspace disease and increased prominence of the pulmonary vasc ulature. 2. Stable bilateral pleural effusions, [id number]-phen-left. 3. Cardiomegaly. 4. Lines and tubes unchanged.
[2024-11-22] MEDS ORDERED: POTASSIUM CHL 20MEQ/100ML 100 ML IV SCH (07:00)
[2024-11-22] MEDS ORDERED: POTASSIUM CHL 20MEQ/100ML 100 ML IV ONE (08:45)
[2024-11-22 08:48] LABS: Base Excess -7.5 mmol/L (-2.0-3.0)
[2024-11-22] MEDS ORDERED: MORPHINE SULFATE 4 MG/ML SYR/VIAL IV PRN (11:30)
[2024-11-22] MEDS: LORazepam 2MG/ML-1ML VIAL IV PRN (13:21)
--- NOTE | 2024-11-22 15:13 | DVHPNRES ---
Progress Note Date Seen: Nov 22, 2024 Resident Creating Document: JULI HIGGINS RESIDENT Has the PT tested + for MRSA If YES, has PT been informed?: No Medical Necessity Reason Pt with a Central, PICC or Fol: Yes The following are medically ne: Balderrama Catheter Subjective Review of Systems Intubated and sedated at this time; family discussion with the patient's and the patient's youngest son regarding comfort care and terminal extubation Objective vital signs Vital Sign Date Time Temp Pulse Resp B/P (MAP) Pulse Ox O2 Delivery O2 Flow Rate FiO2 11/22/24 14:15 72 20 62/32 (42) 95 11/22/24 12:00 98.2 98.2 11/22/24 12:00 Nasal Cannula* 2 28 Total Intake and Output 11/21/24 11/21/24 11/22/24 15:00 23:00 07:00 Intake Total 144.665 ml 827.655 ml 294.91 ml Output Total 400 ml 550 ml Balance 144.665 ml 427.655 ml -255.09 ml medications Current Medications Medications Dose Ordered Sig/Cira Route Start Time Stop Time Status Last Admin Dose Admin Enoxaparin Sodium 40 mg DAILY SC 11/13/24 10:00 UNV Patient Own Medication 1 tab QPM PO 11/12/24 18:00 UNV Patient Own Medication 1 tab BID PO 11/12/24 22:00 UNV Patient Own Medication 2 gm Q8HR IV 11/12/24 14:00 UNV Potassium Chloride 100 ml @ 50 mls/hr Q2H IV 11/22/24 07:00 11/22/24 10:59 UNV Lorazepam 2 mg Q2HPRN PRN IV 11/22/24 11:30 11/22/24 13:21 2 MG Hydromorphone HCl 0.5 mg Q2HPRN PRN IV 11/22/24 14:45 UNV Examination General: Frail, cachectic HEENT: Pupils equal, sluggishly reactive. Oropharynx clear, mucous membranes moist. Neck: No JVD. Cardiac: Tachycardia Respiratory: Mechanical ventilation sounds Abdomen: Soft, non-tender, no guarding or rebound. Balderrama's in place Extremities: No cyanosis; mild dependent edema. Neuro: Minimally responsive, no grimacing or agitation; GCS 6 (T). Skin: Warm, intact; no breakdown. laboratory and microbiology Laboratory Tests 11/22/24 03:37 Test 11/22/24 03:37 Range/Units Serum Glucose 120 H 74-106 mg/dL Microbiology Date/Time Source Procedure Growth Status 11/14/24 17:00 Blood Blood Culture - Final NO GROWTH AFTER 5 DAYS OF INCUBATION. Complete 11/14/24 14:55 Nose MRSA Screen - Final Complete 11/14/24 14:55 Urine - Catheterized Urine Culture - Final Complete Labs and/or images reviewed: Labs reviewed by me, Image(s) reviewed by me Problem List/Assessment/Plan Problem List/Assessment/Plan Assessment Acute hypoxic respiratory failure secondary to multifocal pneumonia and decompensated HFrEF (EF 30%) Septic Shock likely secondary to MSSA bacteremia/osteomyelitis NSTEMI Type 1 / Wellens Syndrome based on EKG pattern and troponin elevation; DNR with no invasive interventions. Acute Kidney Injury (Stage 2) likely multifactorial (sepsis, contrast, low perfusion); GFR 48, Cr 1.52./VMN Bilateral pleural effusions with progressive pulmonary vascular congestion conservative management given poor prognosis. Multifocal pneumonia persistent opacities on imaging Metabolic Encephalopathy secondary to sepsis and sedation. Osteomyelitis (MSSA) prior bone biopsy and cultures positive, Type 2 Diabetes Mellitus Hypertension Dementia baseline per . Hypocalcemia and Hyperphosphatemia due to EREN. Malnutrition / weight loss Possible Ileus abdominal distension, non-obstructive bowel gas on KUB. DNRComfort Measures Only, family agreeable; hospice coordination in progress. [facility] Plan 1. Neurology / Comfort Care Continue lorazepam 2 mg IV q2h PRN for agitation or anxiety. Continue morphine 2 mg IV q1h PRN for dyspnea or pain. Assess comfort and sedation levels regularly; per family request. 2. Respiratory Maintain O2 via nasal cannula 2 L/min for comfort only. Discontinue ventilator support, ABGs, pulse oximetry alarms, and suctioning unless for comfort. 3. Cardiovascular Discontinue all vasopressors, antiarrhythmics, and non-comfort cardiac medications. Monitor visually for signs of distress; no telemetry required. 4. Renal / Fluid Management Discontinue IV fluids unless needed for comfort. Balderrama to gravity; document output for comfort assessment only. 5. Gastrointestinal / Nutrition Stop enteral feeds per family preference. Allow oral sips or comfort measures if patient awakens. Continue bowel regimen only if causing discomfort. 6. Infectious Disease Discontinue all antibiotics; focus on symptom control. 7. Endocrine / Diabetes Hold insulin; check glucose only if symptomatic per comfort care protocol. 8. Prophylaxis / Supportive Measures DVT and GI prophylaxis discontinued as per comfort care guidelines. Continue repositioning q2h for comfort and skin integrity. Maintain skin moisture barrier and oral care. Ramp Boss and social service involvement for family support. Condition / Prognosis * Critical, guarded prognosis. * Multi-organ involvement (cardiac ischemia, septic shock, EREN, respiratory failure). CODE STATUS: DNRComfort Measures Only. CONDITION / PROGNOSIS Critically ill, terminal condition with end-stage cardiopulmonary failure. Family discussion with the patient's (over the phone) and the patient's youngest son (in-person) for 22 minutes regarding goals of care; to proceed with terminal extubation and to discharge to hospice at a facility 120 minutes of critical care time Case discussed in detail with the attending physician , including the clinical presentation, diagnostic workup, and comprehensive management plan. The patients family was updated and demonstrated understanding of his condition and the proposed plan. Plan discussed with: Spouse, Son, Other (Nurse) Dietary Evaluation Review Comments: 1) Increase Glucerna 1.2 to 50 mL/hr goal rate as tolerated. Goal rate will provide 1440 kcals, 72g Pro, and 966 mL free H2O per 24 hrs. TF regimen will meet ~93% estimated energy needs and ~73% estimated protein needs 2) Advance to 45g CCHO 2g Na diet when medically feasible, pending ST approval 3) Refer to outpatient RD/[facility] for diabetes education 4) Follow-up with cardiology, pulmonology, and nephrology 5) Continue to monitor I&O, labs, and skin integrity Expected Outcomes/Goals: 1) nutrition support to provide at least 75% estimated daily needs 2) labs and wound to improve 3) diet to advance 4) f/u in 2-3 days Critical Care Time (mins): 120 Date of Service: Nov 22, 2024 Billing Provider: VINEET ESPINOZA MD Common Visit Codes: 44123-OBVHCUIZ CARE 30-74 MIN (120 minutes), 06658-ZEOXSSOF CARE-EACH +30MIN Secondary Visit Codes: 23280-FCKKZWKR CARE PLAN 30 MINUTES (22 minutes) Addendum Addendum Addendum I was physically present for the otoole portions of the service provided to patient by THE RESIDENT. I have reviewed the documentation, discussed the case with resident and agree with the resident's documentation except as noted. Also the patient's clinical case was discussed with the patient's nurse. This medical document was created using an electronic medical record system with computerized dictation system. Although this document has been carefully reviewed, there might still be some phonetic and typographical errors. These areas are purely typographical due to imperfections of the software programs, and do not reflect any compromise in the patient's medical care. Late signature. JULI HIGGINS RESIDENT Nov 22, 2024 15:13 ALVAREZ ALMEIDA Nov 23, 2024 07:05 VINEET ESPINOZA MD Nov 24, 2024 15:49
[2024-11-22] MEDS: HYDROmorphone HCL 2 MG/ML VL/or syr IV PRN (15:36)
--- NOTE | 2024-11-22 18:38 | DVHPN2 ---
Progress Note - Dictate Date Seen: Nov 22, 2024 Has the PT tested + for MRSA If YES, has PT been informed?: No Medical Necessity Reason Pt with a Central, PICC or Fol: Yes The following are medically ne: Central Line, Balderrama Catheter Subjective Patient was seen and evaluated in follow up in the ICU. Patient is intubated and sedated on ventilator. 50% FiO2. HGB 6.7, HCT 20.7, K 3.3, CL 111, BUN 57, DEGREASING SOLUTION MIXER 2.90, CA 7.4. Chest x-ray shows stable diffuse bilateral pulmonary airspace disease and increased prominence of the pulmonary vasculature, stable bilateral pleural effusions, cccqx-[id number]-nosa-left and cardiomegaly. vital signs Vital Sign Date Time Temp Pulse Resp B/P (MAP) Pulse Ox O2 Delivery O2 Flow Rate FiO2 11/22/24 11:15 94 25 154/78 (103) 94 11/22/24 09:48 50 11/22/24 08:00 98.6 98.6 11/22/24 06:00 Mechanical Ventilator+ Total Intake and Output 11/21/24 11/21/24 11/22/24 15:00 23:00 07:00 Intake Total 144.665 ml 827.655 ml 294.91 ml Output Total 400 ml 550 ml Balance 144.665 ml 427.655 ml -255.09 ml medications Current Medications Medications Dose Ordered Sig/Cira Route Start Time Stop Time Status Last Admin Dose Admin Enoxaparin Sodium 40 mg DAILY SC 11/13/24 10:00 UNV Patient Own Medication 1 tab QPM PO 11/12/24 18:00 UNV Patient Own Medication 1 tab BID PO 11/12/24 22:00 UNV Patient Own Medication 2 gm Q8HR IV 11/12/24 14:00 UNV Potassium Chloride 100 ml @ 50 mls/hr Q2H IV 11/22/24 07:00 11/22/24 10:59 UNV Morphine Sulfate 2 mg Q1HP PRN IV 11/22/24 11:30 Lorazepam 2 mg Q2HPRN PRN IV 11/22/24 11:30 objective GENERAL: Intubated on ventilator. EYES: PERRL, EOMI. Anicteric. HENT: Moist mucous membranes. LUNGS: Decreased breath sounds. CARDIOVASCULAR: Regular rate and rhythm. ABDOMEN: Soft, nontender and nondistended. EXTREMITIES: No edema. SKIN: Warm, dry. laboratory and microbiology Laboratory Tests 11/22/24 03:37 Test 11/22/24 03:37 Range/Units Serum Glucose 120 H 74-106 mg/dL Problem List NSTEMI, likely type 1. ?Wellens syndrome. Rule out structural heart disease. Hypertension. Pneumonia. Type 2 diabetes mellitus. Acute kidney injury. History of tobacco use. Possible early-onset dementia. Assessment/Plan Continued all current supportive medical care. Ativan. Morphine for pain management. Additional plan as per the hospital course. Critical care time of 45 minutes provided to include time spent evaluation of patient at bedside, when appropriate patient/family education for diagnosis, treatment plan, review of pertinent medical information and discussion of care with specialty providers and PCP. Mechanical ventilator parameters, treatment and adjustments have personally been reviewed by me and treatment plan by waxer operator has also been reviewed. Dietary Evaluation Review Comments: 1) Increase Glucerna 1.2 to 50 mL/hr goal rate as tolerated. Goal rate will provide 1440 kcals, 72g Pro, and 966 mL free H2O per 24 hrs. TF regimen will meet ~93% estimated energy needs and ~73% estimated protein needs 2) Advance to 45g CCHO 2g Na diet when medically feasible, pending ST approval 3) Refer to outpatient RD/[facility] for diabetes education 4) Follow-up with cardiology, pulmonology, and nephrology 5) Continue to monitor I&O, labs, and skin integrity Expected Outcomes/Goals: 1) nutrition support to provide at least 75% estimated daily needs 2) labs and wound to improve 3) diet to advance 4) f/u in 2-3 days Plan discussed with: ANJU Shah MD Nov 22, 2024 12:37
[2024-11-23] VITALS (13 sets, daily range): BP systolic 98–161; BP diastolic 55–83; PULSE 76–96; RESP 17–23; TEMP 36.4; O2SAT 83–93
--- NOTE | 2024-11-23 16:05 | DVHDSRES ---
Discharge Summary Date of Admission Resident Creating Document: JULI HIGGINS RESIDENT Nov 12, 2024 at 12:50 Date of Discharge: Nov 23, 2024 Admitting Diagnosis Worsening back pain, chest pain, generalized weakness, and recurrent falls Labs/Diagnostic Data: Laboratory Results Test 11/22/24 08:11 11/22/24 06:01 11/22/24 03:37 11/21/24 03:25 Blood Gas Specimen Type Arterial Blood Gas Sample Site Left radial Blood Gas Patient Temperature 37.0 Arterial Blood Date Drawn [id number] Arterial Blood pH 7.336 (7.350-7.450) Arterial Blood Partial Pressure CO2 33.8 mmHg (35.0-48.0) Arterial Blood Partial Pressure O2 114.1 mmHg (83.0-108.0) Arterial Blood HCO3 17.7 mmol/L (21.0-28.0) Arterial Blood Oxygen Saturation 97.4 % (94.0-98.0) Arterial Blood Base Excess -7.5 mmol/L (-2.0-3.0) Arterial Blood Oxyhemoglobin 95.1 % (94.0-98.0) Arterial Blood Carboxyhemoglobin 1.7 % (0.5-1.5) Arterial Blood Methemoglobin 0.7 % (0.0-1.5) Huan Test Modified Blood Gas Total Hemoglobin 6.00 g/dL (13.5-17.5) Blood Gas Set Respiration Rate 18.0 Blood Gas Modality Vent - ac FiO2 % 50.0 Blood Gas Tidal Volume 400.0 Blood Gas PEEP or CPAP 5.0 Blood Gas Critical Value Read Back Yes Blood Gas Notified Whom Hiram gray Blood Gas Notified Time [id number] Blood Gas Notified By Sofiya cruz POC Glucose 132 mg/dl (70-106) White Blood Count 7.5 10^3/uL (4.4-10.8) Red Blood Count 2.39 10^6/uL (4.5-5.90) Hemoglobin 6.7 g/dL (13.5-17.5) Hematocrit 20.7 % (41.0-53.0) Mean Corpuscular Volume 86.8 fL (80.0-100.0) Mean Corpuscular Hemoglobin 28.3 pg (28.0-32.0) Mean Corpuscular Hemoglobin Concent 32.6 g/dL (32.0-36.0) Red Cell Distribution Width 15.9 % (11.8-14.3) Platelet Count 259 10^3/uL (140-450) Mean Platelet Volume 8.2 fL (6.9-10.8) Neutrophils (%) (Auto) 78.7 % (37.0-80.0) Lymphocytes (%) (Auto) 10.8 % (10.0-50.0) Monocytes (%) (Auto) 9.5 % (0.0-12.0) Eosinophils (%) (Auto) 0.9 % (0.0-7.0) Basophils (%) (Auto) 0.1 % (0.0-2.0) Neutrophils # (Auto) 5.9 10 ^3/uL (1.6-8.6) Lymphocytes # (Auto) 0.8 10 ^3/uL (0.4-5.4) Monocytes # (Auto) 0.7 10 ^3/uL (0-1.3) Eosinophils # (Auto) 0.1 10 ^3/uL (0-0.8) Basophils # (Auto) 0 10 ^3/uL (0-0.2) Nucleated Red Blood Cells 0.0 % Sodium Level 145 mmol/L (136-145) Potassium Level 3.3 mmol/L (3.5-5.1) Chloride Level 111 mmol/L (98-107) Carbon Dioxide Level 19 mmol/L (20-31) Anion Gap 15 (5-15) Blood Urea Nitrogen 57 mg/dL (9-23) Creatinine 2.90 mg/dL (0.700-1.30) Glomerular Filtration Rate Calc 22 mL/min (>90) BUN/Creatinine Ratio 19.7 (10.0-20.0) Serum Glucose 120 mg/dL (74-106) Calcium Level 7.4 mg/dL (8.7-10.4) Total Bilirubin 0.3 mg/dL (0.2-1.0) Aspartate Amino Transferase (AST) 26 U/L (13-40) Alanine Aminotransferase (ALT) 10 U/L (7-40) Alkaline Phosphatase 94 U/L (46-116) Total Protein 5.5 g/dL (5.7-8.2) Albumin 2.6 g/dL (3.2-4.8) Magnesium Level 2.1 mg/dL (1.6-2.6) Test 11/20/24 12:40 11/19/24 20:55 11/19/24 03:31 11/15/24 12:55 Iron Level 36 ug/dL (65-175) Total Iron Binding Capacity 186 ug/dL (250-425) Percent Iron Saturation 19.4 % (20-55) Ferritin 669.9 ng/mL (22-322) Prothrombin Time 11.8 sec (9.3-11.8) Prothrombin Time INR 1.13 (0.9-1.15) Activated Partial Thromboplast Time 29.8 SEC (24.5-34.5) Phosphorus Level 4.0 mg/dL (2.4-5.1) Troponin I High Sensitivity 437 ng/L (</=54) Test 11/15/24 09:17 11/15/24 03:30 11/14/24 14:55 11/14/24 12:20 Hemoglobin A1c 8.3 % A1C (<5.7) B-Type Natriuretic Peptide 1233.51 pg/mL (0-100) Triglycerides Level 151 mg/dL (< 150) Cholesterol Level 126 mg/dL (< 200) LDL Cholesterol 73 mg/dL (< 100) HDL Cholesterol 26 mg/dL (40-59) Thyroid Stimulating Hormone (TSH) 1.78 uIU/mL (0.55-4.78) Lactic Acid Level 0.7 mmol/L (0.4-2.0) Urine Color Light-yellow (Yellow) Urine Clarity Clear (Clear) Urine pH 6.0 (5.0-9.0) Urine Specific [place] 1.016 (1.001-1.035) Urine Protein 2+ (Negative) Urine Ketones 1+ (Negative) Urine Blood 3+ /uL (Negative) Urine Nitrite Negative (Negative) Urine Bilirubin Negative (Negative) Urine Urobilinogen Normal mg/dL (Negative) Urine Leukocyte Esterase Negative /uL (Negative) Urine RBC 174 /hpf (0 - 3) Urine Microscopic WBC 6 /HPF (0-3) Urine Squamous Epithelial Cells None seen /hpf (<5) Urine Bacteria None seen /hpf (None Seen) Urine Mucus Few (None Seen) Urine Glucose 4+ mg/dL (Normal) Urine Opiates Screen Neg (NEGATIVE) Urine Fentanyl Screen Neg (NEGATIVE) Urine Barbiturates Screen Neg (NEGATIVE) Urine Phencyclidine Screen Neg (NEGATIVE) Urine Amphetamines Screen Neg (NEGATIVE) Urine Benzodiazepines Screen Neg (NEGATIVE) Urine Cocaine Screen Neg (NEGATIVE) Urine Cannabinoids Screen Neg (NEGATIVE) D-Dimer, Quantitative 3.13 mg/L FEU (0.0-0.49) Test 11/14/24 12:18 Blood Gas Liter Flow 15.00 Other Laboratory Tests 11/22/24 03:37 Brief Hx & Hospital Course: The patient presented on 11/12/2024 with worsening back pain, chest pain, generalized weakness, and recurrent falls. Initial evaluation showed leukocytosis, bilateral pulmonary infiltrates, rising troponins with ischemic ECG changes, and acute kidney injury (EREN). He deteriorated on the shaikh with hypoxic respiratory failure requiring rapid response, endotracheal intubation, and ICU transfer on 11/14. Respiratory: Managed for multifocal pneumonia and pulmonary edema. Ventilated on AC/VC with low FiO? and PEEP 5. Serial CXRs showed persistent bilateral opacities with evolving moderate bilateral pleural effusions. ABGs remained acceptable on low ventilator settings. After multiple spontaneous breathing/CPAP trials complicated by agitation and frailty, the family elected comfort care. The patient underwent terminal extubation with family present; maintained on O? 2 L/min by nasal cannula with good comfort. Cardiac: Echo revealed HFrEF with LVEF ~30%, global LV dysfunction, RV dilation/dysfunction, dilated IVC, and moderate mitral stenosis. He experienced an episode of SVT/AF with RVR (HR ~230) treated with IV amiodarone and transitioned to PO. NSTEMI was medically managed (anticoagulation initially; antiplatelet/statin) given goals of care; no invasive procedures per family wishes. After transition to comfort-only, disease-directed cardiac therapies were discontinued. Renal: Developed EREN (stage 3) with creatinine peaking ~2.4 mg/dL and BUN ~67 mg/dL. Pattern consistent with ischemic ATN on a background of cardiorenal venous congestion (low perfusion from shock/CHF, nephrotoxin avoidance practiced). Nephrology recommended free-water replacement (D5W NS) for hypernatremia and conservative management. No dialysis pursued per goals of care. Infectious Disease: History notable for prior MSSA osteomyelitis/bacteremia at an outside facility; current hospitalization cultures were negative. Empiric cefepime was given for suspected pneumonia, then discontinued with comfort transition. Hematology/Endocrine: Anemia of critical illness with Hgb varun ~7.07.5 g/dL; no transfusion after goals changed. Type 2 diabetes managed with insulin; de- intensified with comfort transition. Symptoms/Comfort: Significant agitation during sedation weans managed with dexmedetomidine, then methadone and benzodiazepines. After terminal extubation, patient remained calm on low-flow oxygen with morphine and lorazepam PRN for dyspnea/anxiety. Bowel regimen maintained for comfort. Goals of Care: Multiple meetings with and son. Code status confirmed DNR Comfort Measures Only. Terminal extubation performed per family wishes. Social Work and Case Management coordinated home hospice; insurance does not cover inpatient hospice placement, so community agencies arranged home services. Physical examination on the day of discharge: General: Unconscious Head and neck: Atraumatic Heart: Tachycardia Lungs: Shallow breathing with decreased air entry bilateral Abdomen: Soft with decreased bowel sounds; Balderrama's in place Neurology: Unconscious Skin: No skin lesion Discussed with Dr. Espinoza Consults/Reason for consult Cardiology for chest pain// Pulmonary and critical care for acute hypoxic respiratory failure// Nephrology for EREN Operations or Procedures Ultrasound-guided midline catheter insertion ULTRASOUND-GUIDED RIGHT INTERNAL JUGULAR CENTRAL VENOUS CANNULATION Endotracheal Intubation Condition at Discharge: Critical Final Diagnosis/Problems List Acute hypoxic respiratory failure due to pneumonia and cardiogenic pulmonary edema. Required intubation/ICU care; Ultimately terminally extubated Acute on chronic HFrEF (LVEF ~30%) with global LV dysfunction; moderate mitral stenosis with advanced cardiomyopathy POA: Yes / Ongoing Chronic, decompensated Gentle diuresis initially; no invasive strategies per goals. Contributed to pulmonary edema and cardiorenal syndrome. Comfort-only now. NSTEMI type 1 / myocardial ischemia with ST-segment depression/ Wellens syndrome POA: Yes (evolving at presentation) / Treated (medical) Acute (Type 1 suspected) Heparin infusion then discontinued; amiodarone for AF/SVT; antiplatelet/statin initially. No cath per family. Disease-directed agents stopped with comfort measures. Paroxysmal atrial fibrillation/SVT with RVR Acute IV ? PO amiodarone; anticoagulation considered; rate controlled. Now symptom-guided management only under hospice. Multifocal pneumonia (bacterial suspected) with bilateral pleural effusions POA: Yes / Treated ? comfort focus Acute Cefepime course, pulmonary hygiene; persistent effusions without invasive drainage per goals. Antibiotics discontinued after comfort transition. EREN Stage 3, ischemic ATN with cardiorenal (venous-congestion mediated) component Ongoing Acute Conservative management per nephrology (free-water, avoid nephrotoxins, hemodynamic support). No dialysis per goals. Anemia of critical illness 1. Acute on chronic (likely chronic disease) 2. Monitored; transfusion threshold <7 g/dL; no transfusion after comfort transition. Type 2 diabetes mellitus POA: Yes / Ongoing Chronic Sliding-scale insulin while inpatient; de-intensified for hospice . Dementia with functional decline/frailty/ superimposed Acute metabolic encephalopathy, 1. POA: Yes / Ongoing 2. Chronic High delirium risk; prioritized non-pharmacologic comfort and minimal burdensome interventions. Malnutrition and debility 1. POA: Yes / Ongoing 2. Chronic disease-related 3. Tube feeds during ICU phase; stopped with comfort transition; focus on oral sips for comfort. Prior MSSA osteomyelitis/bacteremia (history) Complexity Level: Very high (multi-organ failurerespiratory, cardiac, renal; hemodynamic instability; invasive ventilation; arrhythmia; [id number] transition; terminal extubation; hospice coordination). UTI, ruled out Hypertension, POA, chronic ongoing meds on hold due to current shock state. history of tobacco use Hypernatremia resolved Complexity Level: Very high (multi-organ failurerespiratory, cardiac, renal; hemodynamic instability; invasive ventilation; arrhythmia; [id number] transition; terminal extubation; hospice coordination). Discharge Disposition: Hospice - Home Discharge Instruct/Medications Diet: See Comment Diet comment: Comfort Feeding Only / Pleasure Feeding as Tolerated Oral care every 24 hours with swabs and lip moisturizer. Care Plan: Hospice Enrollment (Home): Hospice agency to initiate services within 24 hours of discharge. Skilled RN visits Hospice physician to assume primary for comfort care; our service remains available for questions during transition. Symptom Management at Home: Primary goals: comfort, relief of dyspnea/pain/anxiety, preserve dignity. Family instructed on PRN use of morphine and lorazepam, mouth care, repositioning q23 hr, and use of oxygen. Call hospice for any distress not relieved by first-line PRNs or for changes in breathing pattern, agitation, secretions, or uncontrolled pain. Monitoring/Testing: No routine labs, imaging, or vitals required unless to improve comfort. No rehospitalization or invasive procedures in keeping with DNRComfort Measures Only. Advance Care Planning: Code Status: DNR Comfort Measures Only confirmed with family. Family & Psychosocial Support: dyehouse worker and games manager to contact family within 48 hours for ongoing support, bereavement resources, and equipment coordination. PCP Notification: Primary care provider to be notified of hospice enrollment. Follow-up visits only if requested for comfort goals. Disease-modifying agents (e.g., anticoagulants, antiplatelets, statins, antiarrhythmics, insulin protocols, antibiotics) discontinued As per Hospice care provider Morphine sulfate (IV or PO concentrated solution per hospice formulary) 2 mg IV q1h PRN or 510 mg PO/SL q1h PRN for dyspnea or pain Titrate for comfort; hold if excessive somnolence or RR <8 Lorazepam (Ativan) PO/SL/IV 0.52 mg q2h PRN anxiety, agitation, air hunger May schedule 0.51 mg q68h if frequent symptoms Scheduled Atorvastatin Calcium (Atorvastatin Calcium), 1 TAB PO QPM, (Reported) Carvedilol (Carvedilol), 1 TAB PO BID, (Reported) Cefazolin Sodium (Cefazolin), 2 GM IV Q8HR, (Reported) Duloxetine HCl (Duloxetine HCl), 90 MG PO DAILY, (Reported) Empagliflozin (Jardiance), 25 MG PO DAILY, (Reported) Enoxaparin Sodium (Enoxaparin Sodium), 40 MG SC DAILY, (Reported) Hydromorphone Hcl (Dilaudid), 2 TAB PO QIDP, (Reported) Insulin Lispro Protamine & Lis (Humalog Mix 75/25 Kwikpen), 15 UNIT SC BID, (Reported) Lidocaine (Lidoderm 5% Topical Patch), 1 PATCH TOP DAILY, (Reported) Pantoprazole Sodium Sesquihydr (Pantoprazole Sodium), 1 TAB PO BID, (Reported) Senna (Senna), 17.2 MG PO DAILY, (Reported) Scheduled PRN Bisacodyl (Dulcolax), 10 MG RE DAILYP PRN, (Reported) Hydromorphone Hcl (Dilaudid), 1 TAB PO Q4HP PRN, (Reported) Trazodone Hcl (Trazodone Hcl), 0.5 TAB PO QHSP PRN, (Reported) 60 Discharge Statement: "Patient was advised to return to the ER or call 911 if any headaches, dizziness, shortness of breath, chest pain, abdominal pain, bleeding, fevers, or worsening of medical condition. Patient was counseled about treatment plan, medications, possible side effects, patientverbalized understanding. All questions were answered to the best of my ability. This discharge took greater then 30 minutes in planning, reviewing documentation, counseling the patient, and discussing with other team members." ASSESSMENT ASSESSMENT Hospital Course The patient presented on 11/12/2024 with worsening back pain, chest pain, generalized weakness, and recurrent falls. Initial evaluation showed leukocytosis, bilateral pulmonary infiltrates, rising troponins with ischemic ECG changes, and acute kidney injury (EREN). He deteriorated on the shaikh with hypoxic respiratory failure requiring rapid response, endotracheal intubation, and ICU transfer on 11/14. Respiratory: Managed for multifocal pneumonia and pulmonary edema. Ventilated on AC/VC with low FiO? and PEEP 5. Serial CXRs showed persistent bilateral opacities with evolving moderate bilateral pleural effusions. ABGs remained acceptable on low ventilator settings. After multiple spontaneous breathing/CPAP trials complicated by agitation and frailty, the family elected comfort care. The patient underwent terminal extubation with family present; maintained on O? 2 L/min by nasal cannula with good comfort. Cardiac: Echo revealed HFrEF with LVEF ~30%, global LV dysfunction, RV dilation/dysfunction, dilated IVC, and moderate mitral stenosis. He experienced an episode of SVT/AF with RVR (HR ~230) treated with IV amiodarone and transitioned to PO. NSTEMI was medically managed (anticoagulation initially; antiplatelet/statin) given goals of care; no invasive procedures per family wishes. After transition to comfort-only, disease-directed cardiac therapies were discontinued. Renal: Developed EREN (stage 3) with creatinine peaking ~2.4 mg/dL and BUN ~67 mg/dL. Pattern consistent with ischemic ATN on a background of cardiorenal venous congestion (low perfusion from shock/CHF, nephrotoxin avoidance practiced). Nephrology recommended free-water replacement (D5W NS) for hypernatremia and conservative management. No dialysis pursued per goals of care. Infectious Disease: History notable for prior MSSA osteomyelitis/bacteremia at an outside facility; current hospitalization cultures were negative. Empiric cefepime was given for suspected pneumonia, then discontinued with comfort transition. Hematology/Endocrine: Anemia of critical illness with Hgb varun ~7.07.5 g/dL; no transfusion after goals changed. Type 2 diabetes managed with insulin; de- intensified with comfort transition. Symptoms/Comfort: Significant agitation during sedation weans managed with dexmedetomidine, then methadone and benzodiazepines. After terminal extubation, patient remained calm on low-flow oxygen with morphine and lorazepam PRN for dyspnea/anxiety. Bowel regimen maintained for comfort. Goals of Care: Multiple meetings with and son. Code status confirmed DNR Comfort Measures Only. Terminal extubation performed per family wishes. Social Work and Case Management coordinated home hospice; insurance does not cover inpatient hospice placement, so community agencies arranged home services. Assessment Acute hypoxic respiratory failure due to pneumonia and cardiogenic pulmonary edema. Required intubation/ICU care; Ultimately terminally extubated Acute on chronic HFrEF (LVEF ~30%) with global LV dysfunction; moderate mitral stenosis with advanced cardiomyopathy POA: Yes / Ongoing Chronic, decompensated Gentle diuresis initially; no invasive strategies per goals. Contributed to pulmonary edema and cardiorenal syndrome. Comfort-only now. NSTEMI type 1 / myocardial ischemia with ST-segment depression/ Wellens syndrome POA: Yes (evolving at presentation) / Treated (medical) Acute (Type 1 suspected) Heparin infusion then discontinued; amiodarone for AF/SVT; antiplatelet/statin initially. No cath per family. Disease-directed agents stopped with comfort measures. Paroxysmal atrial fibrillation/SVT with RVR Acute IV ? PO amiodarone; anticoagulation considered; rate controlled. Now symptom-guided management only under hospice. Multifocal pneumonia (bacterial suspected) with bilateral pleural effusions POA: Yes / Treated ? comfort focus Acute Cefepime course, pulmonary hygiene; persistent effusions without invasive drainage per goals. Antibiotics discontinued after comfort transition. EREN Stage 3, ischemic ATN with cardiorenal (venous-congestion mediated) component Ongoing Acute Conservative management per nephrology (free-water, avoid nephrotoxins, hemodynamic support). No dialysis per goals. Anemia of critical illness 1. Acute on chronic (likely chronic disease) 2. Monitored; transfusion threshold <7 g/dL; no transfusion after comfort transition. Type 2 diabetes mellitus POA: Yes / Ongoing Chronic Sliding-scale insulin while inpatient; de-intensified for hospice . Dementia with functional decline/frailty/ superimposed Acute metabolic encephalopathy, 1. POA: Yes / Ongoing 2. Chronic High delirium risk; prioritized non-pharmacologic comfort and minimal burdensome interventions. Malnutrition and debility 1. POA: Yes / Ongoing 2. Chronic disease-related 3. Tube feeds during ICU phase; stopped with comfort transition; focus on oral sips for comfort. Prior MSSA osteomyelitis/bacteremia (history) Complexity Level: Very high (multi-organ failurerespiratory, cardiac, renal; hemodynamic instability; invasive ventilation; arrhythmia; [id number] transition; terminal extubation; hospice coordination). UTI, ruled out Hypertension, POA, chronic ongoing meds on hold due to current shock state. history of tobacco use Hypernatremia resolved Addendum Addendum Addendum I was physically present for the [place] portions of the service provided to patient by THE RESIDENT. I have reviewed the documentation, discussed the case with resident and agree with the resident's documentation except as noted. Also the patient's clinical case was discussed with the patient's nurse. This medical document was created using an electronic medical record system with computerized dictation system. Although this document has been carefully reviewed, there might still be some phonetic and typographical errors. These areas are purely typographical due to imperfections of the software programs, and do not reflect any compromise in the patient's medical care. Late signature. Date of Service: Nov 23, 2024 Billing Provider: VINEET ESPINOZA MD Common Visit Codes: 19484-YFQ/OBS DISCH DAY >30min JULI HIGGINS RESIDENT Nov 23, 2024 16:05 VINEET ESPINOZA MD Nov 24, 2024 15:54
--- NOTE | 2024-11-23 16:52 | DVHPN2 ---
Progress Note - Dictate Date Seen: Nov 23, 2024 Has the PT tested + for MRSA If YES, has PT been informed?: No Medical Necessity Reason Pt with a Central, PICC or Fol: Yes The following are medically ne: Central Line, Balderrama Catheter Subjective Patient was seen and evaluated in follow up. Patient's family ( and son) have elected DNR with comfort measures only (NEW GRAD RN) after understanding the patent's clinical prognosis and futility of aggressive care and as per patients wishes. Patient was compassionately extubated at bedside with family members present. Telemetry reviewed. vital signs Vital Sign Date Time Temp Pulse Resp B/P (MAP) Pulse Ox O2 Delivery O2 Flow Rate FiO2 11/23/24 09:53 87 18 133/66 11/23/24 08:39 97.2 88 97.2 11/23/24 08:23 Room Air* 0 21 Total Intake and Output 11/22/24 11/22/24 11/23/24 15:00 23:00 07:00 Intake Total 78.69 ml 0 ml Output Total 350 ml Balance 78.69 ml -350 ml medications Current Medications Medications Dose Ordered Sig/Cira Route Start Time Stop Time Status Last Admin Dose Admin Enoxaparin Sodium 40 mg DAILY SC 11/13/24 10:00 UNV Patient Own Medication 1 tab QPM PO 11/12/24 18:00 UNV Patient Own Medication 1 tab BID PO 11/12/24 22:00 UNV Patient Own Medication 2 gm Q8HR IV 11/12/24 14:00 UNV Potassium Chloride 100 ml @ 50 mls/hr Q2H IV 11/22/24 07:00 11/22/24 10:59 UNV Lorazepam 2 mg Q2HPRN PRN IV 11/22/24 11:30 11/23/24 09:54 2 MG Hydromorphone HCl 0.5 mg Q2HPRN PRN IV 11/22/24 14:45 11/23/24 09:23 0.5 MG objective GENERAL: Ill appearing, unresponsive. EYES: PERRL, EOMI. Anicteric. HENT: Moist mucous membranes. LUNGS: Decreased breath sounds. CARDIOVASCULAR: Regular rate and rhythm. ABDOMEN: Soft, nontender and nondistended. EXTREMITIES: No edema. SKIN: Warm, dry. laboratory and microbiology Laboratory Tests 11/22/24 03:37 Test 11/22/24 03:37 Range/Units Serum Glucose 120 H 74-106 mg/dL Problem List NSTEMI, likely type 1. ?Wellens syndrome. Rule out structural heart disease. Hypertension. Pneumonia. Type 2 diabetes mellitus. Acute kidney injury. History of tobacco use. Possible early-onset dementia. Assessment/Plan Continued all current supportive medical care. Comfort measures. Additional plan as per the hospital course. Dietary Evaluation Review Comments: 1) Increase Glucerna 1.2 to 50 mL/hr goal rate as tolerated. Goal rate will provide 1440 kcals, 72g Pro, and 966 mL free H2O per 24 hrs. TF regimen will meet ~93% estimated energy needs and ~73% estimated protein needs 2) Advance to 45g CCHO 2g Na diet when medically feasible, pending ST approval 3) Refer to outpatient RD/CD[facility] for diabetes education 4) Follow-up with cardiology, pulmonology, and nephrology 5) Continue to monitor I&O, labs, and skin integrity Expected Outcomes/Goals: 1) nutrition support to provide at least 75% estimated daily needs 2) labs and wound to improve 3) diet to advance 4) f/u in 2-3 days Plan discussed with: ANJU Shah MD Nov 23, 2024 12:02
== END 2024-11-23 18:00 | disposition hospice, home (50) | DRG 870 ==
LOC: EDBD 08:28 → ER 08:28 → OVERFLOW 12:50 → TELE-WESTW 14:23 → ICU CENTRL 11-14 13:58 → CENTRAL 11-22 20:58 → TELE-CENTR 11-22 21:24
PROVIDERS: ADMIT Internal Medicine; ATTEND Internal Medicine
PROC: 5A1955Z Respiratory Ventilation, Greater than 96 Consecutive Hours (ICD-10-PCS; principal; 2024-11-14)
PROC: 0BH17EZ Insertion of Endotracheal Airway into Trachea, Via Natural or Artificial Opening (ICD-10-PCS; 2024-11-14)
PROC: 05HM33Z Insertion of Infusion Device into Right Internal Jugular Vein, Percutaneous Approach (ICD-10-PCS; 2024-11-14)
PROC: B543ZZA Ultrasonography of Right Jugular Veins, Guidance (ICD-10-PCS; 2024-11-14)
PROC: 05HB33Z Insertion of Infusion Device into Right Basilic Vein, Percutaneous Approach (ICD-10-PCS; 2024-11-20)
PROC: B54MZZA Ultrasonography of Right Upper Extremity Veins, Guidance (ICD-10-PCS; 2024-11-20)
DX: A41.9 Sepsis, unspecified organism (principal); I21.4 Non-ST elevation (NSTEMI) myocardial infarction; G93.41 Metabolic encephalopathy; J96.01 Acute respiratory failure with hypoxia; I50.23 Acute on chronic systolic (congestive) heart failure; N17.0 Acute kidney failure with tubular necrosis; R65.21 Severe sepsis with septic shock; J15.69 Pneumonia due to other Gram-negative bacteria; J15.9 Unspecified bacterial pneumonia; I42.9 Cardiomyopathy, unspecified; E46 Unspecified protein-calorie malnutrition; E87.0 Hyperosmolality and hypernatremia; E83.51 Hypocalcemia; Z66 Do not resuscitate; F41.9 Anxiety disorder, unspecified; E11.65 Type 2 diabetes mellitus with hyperglycemia; D64.9 Anemia, unspecified; F03.90 Unspecified dementia, unspecified severity, without behavioral disturbance, psychotic disturbance, mood disturbance, and anxiety; I11.0 Hypertensive heart disease with heart failure; G89.29 Other chronic pain; E83.39 Other disorders of phosphorus metabolism; M54.50 Low back pain, unspecified; F12.90 Cannabis use, unspecified, uncomplicated; K21.9 Gastro-esophageal reflux disease without esophagitis; K59.00 Constipation, unspecified; R29.6 Repeated falls; I05.0 Rheumatic mitral stenosis; I48.0 Paroxysmal atrial fibrillation; Z79.01 Long term (current) use of anticoagulants; Z79.02 Long term (current) use of antithrombotics/antiplatelets; Z79.4 Long term (current) use of insulin; Z68.22 Body mass index [BMI] 22.0-22.9, adult; Z88.0 Allergy status to penicillin; Z87.891 Personal history of nicotine dependence; Z88.1 Allergy status to other antibiotic agents; Z88.6 Allergy status to analgesic agent
CPT/HCPCS: 36415; 36556; 36600; 70450; 71045; 74018; 76775; 80048; 80053; 80061; 80307; 81001; 82728; 82805; 82962; 83036; 83540; 83550; 83605; 83735; 83880; 84100; 84132; 84443; 84484; 85014; 85018; 85025; 85049; 85379; 85610; 85730; 86850; 86900; 86901; 86920; 87040; 87081; 87086; 93005; 93306; 94002; 94003; 94640; 96374; 96375; 97110; 97163; 99291; G0378; J0153; J0692; J1815; J2405; J2470; J2704; J3480